=== PATIENT | female | born 2005 | race Caucasian/White ===

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

== ENCOUNTER 2023-01-10 14:30 | Outpatient (REF) | payer OTHER, SELFPAY | END 2023-01-10 14:31 | disposition home or self-care (01) | LOC: HO.MDS 14:30 | PROVIDERS: Visit Provider Internal Medicine | DX: D50.9 Iron deficiency anemia, unspecified (principal) | CPT/HCPCS: 96365; J1756 ==

== ENCOUNTER 2023-02-14 13:44 | Outpatient (REF) | payer OTHER, SELFPAY | END 2023-02-14 13:45 | disposition home or self-care (01) | LOC: HO.MDS 13:44 | PROVIDERS: Visit Provider Internal Medicine Medical Oncology | DX: D50.9 Iron deficiency anemia, unspecified (principal) | CPT/HCPCS: 96365; J1756 ==

== ENCOUNTER 2023-07-05 18:03 | Emergency (ER) | payer OTHER, SELFPAY ==
--- NOTE | 2023-07-05 18:11 | ED.GENADULT ---
HPI - General Adult General Chief complaint: Upper Respiratory Symptoms Stated complaint: SOB/Vomiting/Nauseas/Sore throat Time Seen by Provider: 07/05/23 18:56 Source: patient Mode of arrival: ambulatory Limitations: no limitations History of Present Illness HPI narrative: 18 yo female with PMH of GAS pharyngitis here with c/o sore throat x 2 days able to swallow but thinks she has strep again was supposed to see ENT but did not hx of recurrent infections responds to abx every time. No issues with voice or drooling. She also was worried she was due to late on menses - wants test complaint: sore throat Onset (ago): day(s) (2) Location: mouth Radiation: non-radiation Severity: mild Quality: aching and dull Pain Consistency: intermittent Relieving factors: none Exacerbating factors: other (swallowing) Associated symptoms: denies other symptoms Treatments prior to arrival: none Related Data Home Medications Medication Instructions Recorded Confirmed No Known Home Meds 11/23/22 11/23/22 Allergies Allergy/AdvReac Type Severity Reaction Status Date / Time tree nut Allergy Anaphylaxis Verified 07/05/23 18:12 Review of Systems Review of Systems: Constitutional : no Fever, positive Chills, no fatigue, no Malaise ENT/Mouth : positive sore throat, positive runny nose Eyes: No Discharge Cardiovascular : No Chest Pain, No SOB Respiratory : pos dry Cough, No Sputum Gastrointestinal : No Nausea, No Vomiting, No Diarrhea Genitourinary : No Dysuria, No Urinary Frequency Musculoskeletal : no Myalgia Skin : No rash Neuro : No Headache All other systems reviewed and are negative [facility] Past Medical History Medical History Chronic anemia Surgical History No pertinent past surgical history Social History Social History (Updated 11/23/22 @ 14:41 by Nancy Mckeon) Household Members: Family Housing: House Alcohol intake: current Alcohol intake frequency: holidays/special occasions only Alcohol type: wine Patient Tobacco Use Status: Never used Tobacco Second Hand Smoke Exposure: No Advance Directives: No Advance Directives Information Provided: Yes service: No Current occupational status: employed Physical Exam ED Vital Signs: Vital Signs - 24 hr 07/05/23 18:12 Temperature 99.0 F Pulse Rate 82 Respiratory Rate 16 Blood Pressure 107/72 Pulse Oximetry 98 Oxygen Delivery Method Room Air BMI result Body Mass Index 23.3 Appearance: Alert. Oriented X3. No acute distress. Eyes: Pupils equal, round and reactive to light. ENT: Pharynx bilateral mild tonsil swelling with exudates and erythema uvula midline no trismu no diff speaking or swallowing Neck: Normal inspection. Neck supple. CVS: Normal heart rate and rhythm. Pulses normal. Respiratory: No respiratory distress. Breath sounds normal. Abdomen: Soft and nontender. Skin: Skin warm and dry. Normal skin color. Normal skin turgor. Extremities: No lower extremity edema. Neuro: Oriented X 3. No motor deficit. No sensory deficit. Course Course Course Narrative: This is an RME: Additional HPI, ROS, PE not included below will be deferred to primary provider. Patient is a 18-year-old female who presents emergency department for evaluation of 3-4 days with shortness of breath, sore throat, nasal congestion, cough, nausea. Daughter ill with similar symptoms. Also concerned she may , took home test 2 weeks ago, negative, has urinary frequncy, LMP sometime in May. 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 Labs: Lab Results 07/05/23 07/05/23 Range/Units 18:26 18:29 Urine Color Yellow Urine Appearance Hazy Urine pH 6.5 (5.0-9.0) Ur Specific [place] 1.020 (1.005-1.025) Urine Protein 30 (1+) H (Neg-Trace) mg/dL Urine Glucose (UA) Negative (Negative) mg/dL Urine Ketones Trace (Negative) mg/dL Urine Blood Trace (Negative) Urine Nitrite Negative (Negative) Ur Leukocyte Esterase Negative (Negative) Urine RBC 3-5 H (0-2) /HPF Urine WBC 0-5 (0-5) /HPF Ur Squamous Epith Cells 11-20 (0-2) /HPF Urine Bacteria 2+ (None Seen) Hyaline Casts 0-2 (0-2) /LPF Urine Test NEGATIVE (NEGATIVE) COVID-19 ([place]) Negative (Negative) COVID-19 Clin Com See Note S. pyogenes GrpA JACOB Positive A (Negative) External Record Review External record reviewed: Inpatient record Prescription Management I considered prescription management with: Antibiotic (patient wanted IM PCN instead) Discharge Plan Discharge Clinical Impression: Pharyngitis Qualifiers: Pharyngitis/tonsillitis etiology: streptococcus Qualified Code(s): J02.0 - Streptococcal pharyngitis Patient Disposition: Home, Self-Care Instructions: Pharyngitis (ED) Additional Instructions: test negative. COVID and flu negative. you were treated for strep throat with a shot you should be all set. return for worsening symptoms of pain, swallowing, fevers, difficulty swallowing or breathing. please follow up with ENT. Prescriptions: No Action No Known Home Meds Referrals: Tomy Donaldson [Physician] - (ENT can call for follow up)
[2023-07-05 18:12] VITALS: BP 107/72; PULSE 82; RESP 16; TEMP 37.2; O2SAT 98; BMI 23.3
[2023-07-05 18:38] LABS: Appearance Urine Hazy; Color Urine Yellow; Glucose Urine UA Negative (Negative); Leukocyte Esterase Urine Negative (Negative); Nitrite Urine Negative (Negative); PH 6.5 (5.0-9.0); UMIC TRIGGER UACC YES; Urine Blood Trace (Negative); Urine Ketones Trace mg/dL (Negative); Urine Protein 30 (1+) mg/dL (Neg-Trace)
[2023-07-05 18:40] LABS: UPreg QC Valid YES; Urine Pregnancy NEGATIVE (NEGATIVE)
[2023-07-05 18:55] LABS: COVID-19 Test Negative (Negative); IDNOW Serial# 08D9AD1C
[2023-07-05 18:58] LABS: IDNOW Serial# 08D9AD1C; Strep A Nucleic Acid Positive (Negative)
[2023-07-05 18:59] LABS: Bacteria Urine 2+ (None Seen); Hyaline Casts Urine 0-2 /LPF (0-2); WBC Urine 0-5 /HPF (0-5)
[2023-07-05 19:13] LABS: IDNOW Serial# BCCEAD1C; Influenza A Negative (Negative); Influenza B2 Negative (Negative)
[2023-07-05] MEDS: Penicillin G Benzathine 1,200,000 UNIT/2 ML SYRINGE 1200000 UNIT IM (19:52)
== END 2023-07-05 19:56 | disposition home or self-care (01) ==
PROVIDERS: Nurse Practitioner Family; Emergency Provider Emergency Medicine; PCP Internal Medicine
DX: J02.0 Streptococcal pharyngitis (principal); Z20.822 Contact with and (suspected) exposure to COVID-19; Z32.02 Encounter for pregnancy test, result negative
CPT/HCPCS: 81001; 81025; 87502; 87635; 87651; 96372; 99282; 99284; J0561

== ENCOUNTER 2024-04-07 19:10 | Emergency (ER) | payer MEDICAID, SELFPAY ==
[2024-04-07 19:17] VITALS: BP 95/77; PULSE 82; RESP 18; TEMP 37.6; O2SAT 97; BMI 22.4
--- NOTE | 2024-04-07 19:19 | ED.GENADULT ---
HPI - General Adult General Chief complaint: General Medical Stated complaint: sore throat headache Related Data Home Medications ?Medication ?Instructions ?Recorded ?Confirmed No Known Home Meds 11/23/22 11/23/22 Allergies Allergy/AdvReac Type Severity Reaction Status Date / Time tree nut Allergy Anaphylaxis Verified 04/07/24 19:20 [facility] Past Medical History Medical History Chronic anemia Surgical History No pertinent past surgical history Social History Social History (Updated 11/23/22 @ 14:41 by Nancy Mckeon) Household Members: Family Housing: House Alcohol intake: current Alcohol intake frequency: holidays/special occasions only Alcohol type: wine Patient Tobacco Use Status: Never used Tobacco Second Hand Smoke Exposure: No Advance Directives: No Advance Directives Information Provided: No Do you have a plan to hurt others: No Plan service: No Current occupational status: employed Physical Exam ED Vital Signs: BMI result Body Mass Index 22.4 Course Course Course Narrative: This is a rapid medical exam performed by Radha Rich NP: Additional HPI, ROS, PE not included below will be deferred to primary provider. Patient is a 19-year-old female presenting with complaint of sore throat, headache, nausea, fatigue. Specifically requesting labs, hx of anemia and unknown autoimmune disorder, they never told me what it was. Plan: strep and viral swabs, basic labs Medical Decision Making Lab Data 04/07/24 19:48 04/07/24 19:48 Labs: Lab Results 04/07/24 Range/Units 19:48 WBC 5.7 (4.8-10.8) X10*3/uL RBC 4.06 L (4.20-5.50) X10*6/uL Hgb 12.6 D (12.0-16.0) g/dl Hct 36.5 L (37.0-47.0) % MCV 89.9 (80.0-98.0) fL MCH 31.0 (27.0-33.0) pg MCHC 34.5 (31.0-35.0) g/dl RDW 12.8 (11.0-16.0) % Plt Count 121 L (160-400) X10*3/uL MPV 11.4 (9.4-12.3) fL Immature Gran % (Auto) 0.4 (0.0-0.4) % Neut % (Auto) 76.2 H (45-73) % Lymph % (Auto) 14.0 L (20-40) % [place] % (Auto) 6.7 (2-11) % Eos % (Auto) 2.5 (0-4) % Baso % (Auto) 0.2 (0-2) % Lymph # (Auto) 0.8 L (1.2-4.9) X10*3/uL [place] # (Auto) 0.4 (0.1-1.2) X10*3/uL Eos # (Auto) 0.1 (0.0-0.4) X10*3/uL Baso # (Auto) 0.0 (0.0-0.2) X10*3/uL Abs Immat Gran (auto) 0.02 (0.00-0.03) X10*3/uL Absolute Neuts (auto) 4.4 (2.0-8.3) x10*3/uL Absolute Nucleated RBC 0.000 (0.0-0.012) X10*3/uL Nucleated RBC % (auto) 0.0 (0.0-0.2) /100WBC Sodium 140 (135-145) mmol/L Potassium 4.0 (3.3-5.1) mmol/L Chloride 109 H (96-108) mmol/L Carbon Dioxide 22 (22-29) mmol/L Anion Gap 13 (12-20) BUN 5 L (9-16) mg/dL Creatinine 0.76 (0.5-1.4) mg/dL Estim Creat Clear Calc 105.3 Estimated GFR > 60 Random Glucose 87 (60-115) mg/dL Calcium 9.6 D (8.4-10.2) mg/dL Total Bilirubin 0.6 (0.0-1.0) mg/dL AST 13 (5-31) U/L ALT 9 (0-31) U/L Alkaline Phosphatase 53 (39-117) U/L Total Protein 7.5 (6.5-8.0) g/dL Albumin 4.6 (3.5-5.0) g/dL Beta HCG, Quant < 2 mIU/mL Influenza Type A (PCR) NEGATIVE (Negative) Influenza Type B (PCR) NEGATIVE (Negative) RSV RNA Qual (PCR) NEGATIVE (Negative) SARS-CoV-2 RNA (RT-PCR) NEGATIVE (Negative) S. pyogenes GrpA JACOB Negative (Negative) Discharge Plan Discharge Clinical Impression: Diagnosis unknown Patient Disposition: Left W/O Completing Treatment Prescriptions: No Action No Known Home Meds Discharge Date/Time: 04/07/24 20:46
[2024-04-07 19:54] LABS: MANUAL DIFF FLAG NO
[2024-04-07 19:59] LABS: Basophils Percent Auto 0.2 % (0-2); Eosinophils Absolute Auto 0.1 X10*3/uL (0.0-0.4); Eosinophils Percent Auto 2.5 % (0-4); Hematocrit 36.5 % (37.0-47.0); Hemoglobin 12.6 g/dl (12.0-16.0); Imm Gran Abs Auto 0.02 X10*3/uL (0.00-0.03); Imm Gran Pct Auto 0.4 % (0.0-0.4); Lymphocytes Absolute Auto 0.8 X10*3/uL (1.2-4.9); Mean Corpuscular HGB Conc 34.5 g/dl (31.0-35.0); Mean Corpuscular Volume 89.9 fL (80.0-98.0); Mean Platelet Volume 11.4 fL (9.4-12.3); Monocytes Absolute Auto 0.4 X10*3/uL (0.1-1.2); Monocytes Percent Auto 6.7 % (2-11); Neutrophils Absolute Auto 4.4 x10*3/uL (2.0-8.3); Neutrophils Percent Auto 76.2 % (45-73); Platelet Count 121 X10*3/uL (160-400); Red Blood Count 4.06 X10*6/uL (4.20-5.50); Red Cell Distribution Width 12.8 % (11.0-16.0); White Blood Count 5.7 X10*3/uL (4.8-10.8)
[2024-04-07 20:22] LABS: Alanine Aminotransferase 9 U/L (0-31); Albumin Level 4.6 g/dL (3.5-5.0); Alkaline Phosphatase 53 U/L (39-117); Anion Gap 13 (12-20); Aspartate Amino Transferase 13 U/L (5-31); Bilirubin Total 0.6 mg/dL (0.0-1.0); Blood Urea Nitrogen 5 mg/dL (9-16); Calcium 9.6 mg/dL (8.4-10.2); Carbon Dioxide 22 mmol/L (22-29); Chloride 109 mmol/L (96-108); Creatinine Clr Calc Pharmacy 105.3; Estimated Glomerular Filt Rate > 60; Glucose Random 87 mg/dL (60-115); HCG Quantitative < 2 mIU/mL; Sodium 140 mmol/L (135-145); Total Protein 7.5 g/dL (6.5-8.0)
[2024-04-07 20:44] LABS: Influenza A PCR NEGATIVE (Negative); Influenza B PCR NEGATIVE (Negative); Resp Syncy Virus RNA Qual PCR NEGATIVE (Negative); SARS COV2 PCR INHOUSE NEGATIVE (Negative)
[2024-04-07 21:38] LABS: IDNOW Serial# 08D9AD1C; Strep A Nucleic Acid Negative (Negative)
== END 2024-04-07 20:46 | disposition left against medical advice (07) ==
PROVIDERS: Registered Nurse Emergency; Emergency Provider Emergency Medicine
DX: J02.9 Acute pharyngitis, unspecified (principal); R51.9 Headache, unspecified; R11.0 Nausea; R53.83 Other fatigue; Z03.818 Encounter for observation for suspected exposure to other biological agents ruled out
CPT/HCPCS: 0241U; 80053; 84702; 85025; 87651; 99281; 99283

== ENCOUNTER 2024-09-19 14:16 | Emergency (ER) | payer MEDICAID, SELFPAY ==
--- NOTE | ~2024-09-19 | US_ITS ---
EXAMINATION: US FIRST TRIMESTER CLINICAL INFORMATION: Positive hCG LMP: Unknown Beta-hC COMPARISON: None available. TECHNIQUE: Transabdominal imaging was performed. FINDINGS: UTERUS AND INTRAUTERINE GESTATIONAL SAC: No definite evidence of intrauterine gestational sac yet. SUBCHORIONIC HEMORRHAGE: None OVARIES: Right: Normal Left: Normal FREE FLUID: None OTHER FINDINGS: None US/US OB pelvic and transvaginal IMPRESSION: No intrauterine is identified at this time. Correlation with beta hCG levels is recommended, probably too early in the , as nonvisualization of a gestational sac could be due to an early stage of . Alternatively, lack of an intrauterine gestational sac may also be seen with missed or ectopic , although no adnexal mass is seen to strongly suggest ectopic . Short-term sonographic follow-up and serial beta hCG levels are recommended to assess for development of an intrauterine gestational sac. Electronically signed by: Eliza Chandler MD 09/19/2024 08:02 PM [facility]
[2024-09-19 14:30] VITALS: BP 101/53; BP 110/70; PULSE 70; PULSE 94; RESP 18; TEMP 36.6; O2SAT 98; O2SAT 99; BMI 22.1
--- NOTE | 2024-09-19 15:41 | PC.NURSE ---
pt tearful and screaming from help- pt stating that her pain is worsening and feels as if she is unable to swallow- no notable secretions outside of mouth- pt speaking in full sentences, provider was notified.
--- NOTE | 2024-09-19 15:43 | PC.NURSE ---
pt offered both hot and cold packs which she declined, pt also offered warm blanket which was declined
[2024-09-19] MEDS: Ketorolac Tromethamine 30 MG/ML VIAL IM (15:53)
--- NOTE | 2024-09-19 15:55 | PC.NURSE ---
pt medicated for 10/10 pain, tech aware to draw labs
--- NOTE | 2024-09-19 16:10 | PC.NURSE ---
labs obtained/swabs obtained
[2024-09-19 16:13] LABS: MANUAL DIFF FLAG NO
[2024-09-19 16:20] LABS: IDNOW Serial# 08D9AD1C; Strep A Nucleic Acid Positive (Negative)
[2024-09-19 16:24] LABS: Basophils Percent Auto 0.4 % (0-2); Eosinophils Absolute Auto 0.1 X10*3/uL (0.0-0.4); Eosinophils Percent Auto 1.8 % (0-4); Hematocrit 35.1 % (37.0-47.0); Hemoglobin 12.4 g/dl (12.0-16.0); Imm Gran Abs Auto 0.01 X10*3/uL (0.00-0.03); Imm Gran Pct Auto 0.2 % (0.0-0.4); Lymphocytes Absolute Auto 1.3 X10*3/uL (1.2-4.9); Lymphocytes Percent Auto 27.3 % (20-40); Mean Corpuscular HGB Conc 35.3 g/dl (31.0-35.0); Mean Corpuscular Hemoglobin 31.9 pg (27.0-33.0); Mean Corpuscular Volume 90.2 fL (80.0-98.0); Mean Platelet Volume 10.7 fL (9.4-12.3); Monocytes Absolute Auto 0.3 X10*3/uL (0.1-1.2); Monocytes Percent Auto 6.5 % (2-11); Neutrophils Absolute Auto 3.1 x10*3/uL (2.0-8.3); Neutrophils Percent Auto 63.8 % (45-73); Platelet Count 119 X10*3/uL (160-400); Red Blood Count 3.89 X10*6/uL (4.20-5.50); Red Cell Distribution Width 11.6 % (11.0-16.0); White Blood Count 4.9 X10*3/uL (4.8-10.8)
[2024-09-19 16:30] LABS: Lipase 13 U/L (8-78); Monotest Negative (Negative)
[2024-09-19] MEDS: Penicillin V Potassium 250 MG TABLET 500 MG PO (16:32)
[2024-09-19] MEDS: diazePAM 5 MG TABLET PO (16:32)
--- NOTE | 2024-09-19 16:36 | PC.NURSE ---
pt medicated for neck spasms and po abx for strept throat
[2024-09-19 16:53] LABS: Influenza A PCR NEGATIVE (Negative); Influenza B PCR NEGATIVE (Negative); Resp Syncy Virus RNA Qual PCR NEGATIVE (Negative); SARS COV2 PCR INHOUSE NEGATIVE (Negative)
[2024-09-19 16:57] LABS: HCG Quantitative 376 mIU/mL
[2024-09-19 17:58] LABS: Alanine Aminotransferase 8 U/L (0-31); Albumin Level 4.4 g/dL (3.5-5.0); Alkaline Phosphatase 43 U/L (39-117); Anion Gap 12 (12-20); Aspartate Amino Transferase 16 U/L (5-31); Bilirubin Total 0.6 mg/dL (0.0-1.0); Blood Urea Nitrogen 8 mg/dL (9-16); Calcium 9.2 mg/dL (8.4-10.2); Carbon Dioxide 22 mmol/L (22-29); Chloride 109 mmol/L (96-108); Creatinine Clr Calc Pharmacy 105.3; Estimated Glomerular Filt Rate > 60; Glucose Random 92 mg/dL (60-115); Sodium 139 mmol/L (135-145); Total Protein 7.2 g/dL (6.5-8.0)
--- NOTE | 2024-09-19 18:01 | ED_ITS ---
HPI - General Adult General Chief complaint: Dental/Oral Stated complaint: NECK PAIN RADIATING TO GUMS,NO INJ PER EMS Time Seen by Provider: 09/19/24 15:58 Source: patient and EMS Mode of arrival: EMS Limitations: no limitations History of Present Illness ED Provider: ABBY BUTLER PA-C HPI narrative: 19-year-old female with pmhx significant for anemia presents to the ED today via EMS from home for evaluation of right-sided neck pain upon waking this morning. Denies blunt injury or trauma to the neck. Denies falls. She states she may have slept wrong however is unsure. She states the pain has been increasing throughout the day. She reports difficulty turning her head to the right. She states her neck feels stiff. Denies any fever, chills, sore throat, dental pain, odynophagia, dysphagia, nausea, vomiting, abdominal pain. No known sick contacts. Denies chance of . Related Data Previous Rx's ?Medication ?Instructions ?Recorded penicillin V potassium 500 mg 500 mg PO BID 10 days #20 tabs 09/19/24 tablet vits no.126-ferrous fum 1 tab PO DAILY #60 tabs 09/19/24 28 mg iron-folic acid 800 mcg tablet (Classic ) Allergies Allergy/AdvReac Type Severity Reaction Status Date / Time tree nut Allergy Anaphylaxis Verified 09/19/24 14:31 Review of Systems 2 Review of Systems: Constitutional: No fever, chills, fatigue, night sweats, weight changes ENT/Mouth: No ear pain, hearing loss, nasal congestion, sinus pain, rhinorrhea, sore throat Eyes: No eye pain, swelling, redness, vision changes, discharge Cardio: No chest pain, palpitations, OROZCO, orthopnea, peripheral edema Pulm: No SOB, cough, sputum, wheezing, dyspnea, hemoptysis GI: No nausea, vomiting, hematemesis, abdominal pain, diarrhea, constipation, hematochezia, melena : No irregular bleeding, dysuria, frequency, urgency, hesitancy, hematuria, flank pain, urinary flow changes, urinary incontinence or retention MSK: No back pain, joint pain, myalgias, +neck pain Skin: No lesions, rashes Neuro: No weakness, numbness, paresthesias, LOC, dizziness, headache Psych: No anxiety/panic, depression, SI/HI, AH/VH All other systems reviewed and are negative. [facility] Past Medical History Attestation statement: The following information was validated with the patient. Source: old records reviewed and nursing notes reviewed Medical History Pancytopenia Chronic anemia Anemia Surgical History No pertinent past surgical history Social History Social History Household Members: Family Housing: House Alcohol intake: current Alcohol intake frequency: holidays/special occasions only Alcohol type: wine Patient Tobacco Use Status: Never used Tobacco Second Hand Smoke Exposure: No Advance Directives: No Advance Directives Information Provided: No Do you have a plan to hurt others: No Plan service: No Current occupational status: employed Physical Exam ED Vital Signs: Vital Signs - 24 hr 09/19/24 14:30 09/19/24 20:40 Temperature 97.9 F 98.3 F Pulse Rate 70 65 Respiratory Rate 18 16 Blood Pressure 101/53 L 106/57 L Pulse Oximetry 98 98 Oxygen Delivery Method Room Air Room Air BMI result Body Mass Index 22.1 vital signs stable General: Well appearing, in no acute distress. Skin: Warm, dry, intact. No rashes or lesions. Head: Normocephalic, atraumatic. EENT: Hearing is intact b/l. Conjunctiva clear. PERRLA. Moist mucous membranes.?dentition intact. no swelling or periapical abscesses. Posterior oropharynx mildly erythematous without edema. No tonsillar exudates or peritonsillar masses. Uvula is midline. She is controlling secretions and speaking in complete sentences. There is no cervical LAD. Neck: +noted right-sided torticollis. She is tender to palpation along right cervical paraspinal muscles, extending into right trapezius with palpable spasm. Limited range of motion to right. No nuchal rigidity or meningeal signs. Cardiac: Chest wall symmetric. RRR. Lungs: Normal respiratory effort without accessory muscle use. CTA bilaterally? Abdomen: Soft, non-tender, non-distended Neuro: AOx3. Normal speech. Ambulating with steady gait. Psych: Appropriate mood and affect. Responds appropriately to questions. Course Course Course Narrative: 1705 -- CBC without leukocytosis or left shift. H&H stable. Chemistry without acute electrolyte abnormality requiring intervention. No ALLEN. Liver function WNL. She tested positive for strep pharyngitis. She tested negative for COVID, flu, RSV, mono. Initially patient denied any chance of . She was treated with Toradol, penicillin and Valium for her symptoms. Her beta HCG then came back as 376. On further questioning, patient states her last menstrual period was at the beginning of August (approximately a month and a half ago). She is sexually active and is not on control. I did inform her of positive results. She states this is not a planned . She is A1. She has a healthy two year old child. Reports history of miscarriage a few years ago. No history of eptopic. She does not endorse any abdominal pain, nausea, vomiting, vaginal bleeding. She was agreeable to ultrasound for confirmation. Order placed. > I discussed case with my attending physician Dr. Romero. risk of patient receiving toradol and valium this early in / harm to fetus is very low. I did discuss risks with patient and she verbalizes understanding. > on re-evaluation, she reports improvement in neck pain/ ROM after receiving the above medications Reevaluation(s) Reevaluation #1: Patient was given to me via sign-out pending ultrasound report. Ultrasound revealing no intrauterine identified, correlation with beta hCG levels. Her beta quant is 376. I personally re-evaluated patient, she does have mild suprapubic pain, no pain with palpation however does have rebound tenderness in the suprapubic region, when removing my hand, no guarding. She is well-appearing. She was hemodynamically stable. I discussed with patient, she states that she has had increased vaginal discharge over the last 4-5 weeks. Reports that this discharge is clear, denies any vaginal bleeding. Denies any severe abdominal pain. I consulted with Dr. Rich. Dr. Rich reviewed case, and patient's hCG is very low to see an intrauterine , there is no adnexal mass no free fluid on ultrasound. Differential diagnoses include early IUP, SAB, ectopic. Recommending vitamins 1 tablet daily, with repeat hCG in 48 hours until hCG reaches 2507-1609 then repeat ultrasound. Recommending outpatient follow-up in 2 days if no access to care, can follow-up in the ER. Also recommending to advised patient on SAB, ectopic warnings to come back with pain or bleeding. Expressed the urgency to see OBGYN within 48 hours for repeat hCG and possible ultrasound. If she does not have access to this care, she needs to come back to the ER for re-evaluation until IUP is confirmed and ectopic is ruled out. Medications Administered Discontinued Medications Generic Name Dose Route Start Last Admin Trade Name Dewayne PRN Reason Stop Dose Admin Diazepam 5 mg 09/19/24 16:21 09/19/24 16:32 Diazepam 5 Mg Tablet PO 09/19/24 16:22 5 mg ONCE ONE Administration Ketorolac Tromethamine 30 mg 09/19/24 15:42 09/19/24 15:53 Ketorolac Tromethamine 30 Mg/Ml Vial IM 09/19/24 15:43 30 mg ONCE ONE Administration Penicillin V Potassium 500 mg 09/19/24 16:21 09/19/24 16:32 Penicillin V Potassium 250 Mg Tablet PO 09/19/24 16:22 500 mg ONCE ONE Administration Medical Decision Making Medical Decision Making [facility] Narrative: 19-year-old female with pmhx significant for anemia presents to the ED today via EMS from home for evaluation of right-sided neck pain upon waking this morning. On exam, dentition is intact. there is no swelling or periapical abscesses. Posterior oropharynx mildly erythematous without edema. No tonsillar exudates or peritonsillar masses. Uvula is midline. She is controlling secretions and speaking in complete sentences. There is no cervical LAD. noted right-sided torticollis. She is tender to palpation along right cervical paraspinal muscles, extending into right trapezius with palpable spasm. Limited range of motion to right. No nuchal rigidity or meningeal signs. Differential diagnosis includes strep throat, mono, torticolis, cervical muscle spasm. Unlikely fracture/ subluxation. Unlikely deep soft tissue neck infection, dental abscess/ infection, [employer]ENDING MACHINE [employer]END[employer], retropharyngeal abscess, epiglottitis, meningitis. Plan for labs, viral and strep swabs, mono, hcg, pain control, and re- evaluation. Differential Diagnosis Differential Diagnoses: The differential diagnosis associated with the presentation includes as above. Admission/Observation not indicated Lab Data [facility] Lab Attestation statement: I reviewed the patient's lab results. as above. 09/19/24 16:07 09/19/24 17:08 Labs: Lab Results 09/19/24 09/19/24 Range/Units 16:07 17:08 WBC 4.9 (4.8-10.8) X10*3/uL RBC 3.89 L (4.20-5.50) X10*6/uL Hgb 12.4 (12.0-16.0) g/dl Hct 35.1 L (37.0-47.0) % MCV 90.2 (80.0-98.0) fL MCH 31.9 (27.0-33.0) pg MCHC 35.3 H (31.0-35.0) g/dl RDW 11.6 (11.0-16.0) % Plt Count 119 L (160-400) X10*3/uL MPV 10.7 (9.4-12.3) fL Immature Gran % (Auto) 0.2 (0.0-0.4) % Neut % (Auto) 63.8 (45-73) % Lymph % (Auto) 27.3 (20-40) % [place] % (Auto) 6.5 (2-11) % Eos % (Auto) 1.8 (0-4) % Baso % (Auto) 0.4 (0-2) % Lymph # (Auto) 1.3 (1.2-4.9) X10*3/uL [place] # (Auto) 0.3 (0.1-1.2) X10*3/uL Eos # (Auto) 0.1 (0.0-0.4) X10*3/uL Baso # (Auto) 0.0 (0.0-0.2) X10*3/uL Abs Immat Gran (auto) 0.01 (0.00-0.03) X10*3/uL Absolute Neuts (auto) 3.1 (2.0-8.3) x10*3/uL Absolute Nucleated RBC 0.000 (0.0-0.012) X10*3/uL Nucleated RBC % (auto) 0.0 (0.0-0.2) /100WBC Sodium 139 (135-145) mmol/L Potassium 4.0 (3.3-5.1) mmol/L Chloride 109 H (96-108) mmol/L Carbon Dioxide 22 (22-29) mmol/L Anion Gap 12 (12-20) BUN 8 L (9-16) mg/dL Creatinine 0.76 (0.5-1.4) mg/dL Estim Creat Clear Calc 105.3 Estimated GFR > 60 Random Glucose 92 (60-115) mg/dL Calcium 9.2 (8.4-10.2) mg/dL Total Bilirubin 0.6 (0.0-1.0) mg/dL AST 16 (5-31) U/L ALT 8 (0-31) U/L Alkaline Phosphatase 43 (39-117) U/L Total Protein 7.2 (6.5-8.0) g/dL Albumin 4.4 (3.5-5.0) g/dL Lipase 13 (8-78) U/L Beta HCG, Quant 376 mIU/mL Monoscreen Negative (Negative) Influenza Type A (PCR) NEGATIVE (Negative) Influenza Type B (PCR) NEGATIVE (Negative) RSV RNA Qual (PCR) NEGATIVE (Negative) SARS-CoV-2 RNA (RT-PCR) NEGATIVE (Negative) S. pyogenes GrpA JACOB Positive A (Negative) Independent Interpretation I performed an independent interpretation of an: Ultrasound Interpretation: OB ultrasound shows US/US OB pelvic and transvaginal IMPRESSION: No intrauterine is identified at this time. Correlation with beta hCG levels is recommended, probably too early in the , as nonvisualization of a gestational sac could be due to an early stage of . Alternatively, lack of an intrauterine gestational sac may also be seen with missed or ectopic , although no adnexal mass is seen to strongly suggest ectopic . Short-term sonographic follow-up and serial beta hCG levels are recommended to assess for development of an intrauterine gestational sac. Electronically signed by: Eliza Chandler MD 09/19/2024 08:02 PM [facility] Radiology Impression Discussion of test interpretation with radiology: I have reviewed the radiologist's reading. Independent Historian Clinical information obtained from an independent historian. History obtained from or confirmed by: EMS External Record Review External record reviewed: Inpatient record Prescription Management I considered prescription management with: Pain Medication and Antibiotic Social Determinants Patient?s care significantly limited by Social Determinants of Health including: Other Social Determinant of Health Critical Care Time Critical Care Time Critical Care Time: No Discharge Plan Discharge Clinical Impression: Acute streptococcal pharyngitis, , Right torticollis Patient Disposition: Still a Patient Instructions: (ED), Strep Throat (ED) Additional Instructions: You were seen in the ED today for evaluation of neck pain. Your physical exam was consistent with a neck muscle spasm. Your blood work today is reassuring. You tested positive for strep throat. You tested negative for covid, flu, rsv, and mono. As discussed, you also tested positive for . Your hormone (beta hcg) level is 376. Your ultrasound shows no intrauterine however you were very early in your and this is very common to not see an intrauterine at this time. However, an ectopic and or miscarriage can not be ruled out at this time. Therefore it is VERY important you follow the instructions below: It is very important that you follow-up with an OBGYN. You need to have your hCG level rechecked in 48 hours (Saturday), until your HCG level is [id number] and then repeat ultrasound. If you do not have OBGYN access to care, you can return back to the emergency room for re-evaluation. We tested you for gonorrhea and chlamydia, we will call you if these are positive. Penicillin is an antibiotic that has been sent to your pharmacy to treat strep throat. Take this twice daily for the next 10 days to treat strep throat. Do not stop taking these antibiotics early or miss any doses as this may cause infection to return or worsen. Take Tylenol as needed for body aches or fevers. Avoid motrin/other NSAIDs as these are not safe in . Make sure to change your toothbrush as this contains bacteria. Strep throat is contagious. If anyone else in your household is exhibiting symptoms, please advise them to come to the ED, urgent care, or to see their primary care provider. Follow up with your primary care provider this week. I have also sent a vitamin that you should take daily during your . A referral for an OB specialist has been provided to you. Call them to make an appointment, they will not call you. Return to the Emergency Department if you experience worsening or uncontrolled pain, tongue swelling, difficulty swallowing, change in your voice, difficulty breathing, fevers 100.4?F or greater, recurrent vomiting, development of a rash, or any other concerning symptoms. In the case of emergency, call 911.? Prescriptions: New penicillin V potassium 500 mg tablet 500 mg PO BID 10 Days Qty: 20 0RF Classic 28 mg iron- 800 mcg tablet 1 tab PO DAILY Qty: 60 0RF Print Language: Canadian
[2024-09-19 20:40] VITALS: BP 106/57; PULSE 65; RESP 16; TEMP 36.8; O2SAT 98
--- NOTE | 2024-09-19 20:51 | P.CONOB_ITS ---
CREDIT ASSISTANT - CN: HPI Data of Consult Consult date: 09/19/24 Primary Care Provider: [facility] Consult Narrative Narrative: I was consulted on Rosalba Bass who is a 19 year old female presenting to the emergency room via EMS from home for evaluation of right-sided neck pain upon waking this morning. Denies blunt injury or trauma to the neck. Denies falls. She states she may have slept wrong however is unsure. She states the pain has been increasing throughout the day. She reports difficulty turning her head to the right. She states her neck feels stiff. Denies any fever, chills, sore throat, dental pain, odynophagia, dysphagia, nausea, vomiting, abdominal pain. No vaginal bleeding no pelvic pain no vaginal discharge. In the emergency room to workup included group B strep swab from the throat which came back positive HCG was 376 Blood type A positive H&H 12.4/35.1 Pelvic ultrasound showed the following: IMPRESSION: No intrauterine is identified at this time. Correlation with beta hCG levels is recommended, probably too early in the , as nonvisualization of a gestational sac could be due to an early stage of . Alternatively, lack of an intrauterine gestational sac may also be seen with missed or ectopic , although no adnexal mass is seen to strongly suggest ectopic . Short-term sonographic follow-up and serial beta hCG levels are recommended to assess for development of an intrauterine gestational sac. cc:: CC: OB [facility] Past Medical History Medical History Pancytopenia Chronic anemia Anemia Surgical History Surgical History No pertinent past surgical history Social History Social History Household Members: Family Housing: House Alcohol intake: current Alcohol intake frequency: holidays/special occasions only Alcohol type: wine Patient Tobacco Use Status: Never used Tobacco Second Hand Smoke Exposure: No Advance Directives: No Advance Directives Information Provided: No Do you have a plan to hurt others: No Plan service: No Current occupational status: employed Meds Allergies Allergy/AdvReac Type Severity Reaction Status Date / Time tree nut Allergy Anaphylaxis Verified 09/19/24 14:31 CREDIT ASSISTANT Physical Exam Vitals Vital signs: Temp Pulse Resp BP Pulse Ox O2 Del Method 98.3 F 65 16 106/57 L 98 Room Air 09/19/24 20:40 09/19/24 20:40 09/19/24 20:40 09/19/24 20:40 09/19/24 20:40 09/19/24 20:40 BMI result Body Mass Index 22.1 Additional Comments: Reported by Rolanda Morales as benign nontender and no guarding CREDIT ASSISTANT - Results Labs 09/19/24 16:07 09/19/24 17:08 Labs: Short CBC 09/19/24 Range/Units 16:07 WBC 4.9 (4.8-10.8) X10*3/uL Hgb 12.4 (12.0-16.0) g/dl Hct 35.1 L (37.0-47.0) % Plt Count 119 L (160-400) X10*3/uL BMP 09/19/24 17:08 Sodium 139 Potassium 4.0 Chloride 109 H Carbon Dioxide 22 BUN 8 L Creatinine 0.76 Calcium 9.2 Liver Function 09/19/24 Range/Units 17:08 Total Bilirubin 0.6 (0.0-1.0) mg/dL AST 16 (5-31) U/L ALT 8 (0-31) U/L Alkaline Phosphatase 43 (39-117) U/L Albumin 4.4 (3.5-5.0) g/dL Imaging US - abdomen: Radiologist's impression: ITS Impressions Pelvic/Transvag US 09/19/24 17:46 IMPRESSION: No intrauterine is identified at this time. Correlation with beta hCG levels is recommended, probably too early in the , as nonvisualization of a gestational sac could be due to an early stage of . Alternatively, lack of an intrauterine gestational sac may also be seen with missed or ectopic , although no adnexal mass is seen to strongly suggest ectopic . Short-term sonographic follow-up and serial beta hCG levels are recommended to assess for development of an intrauterine gestational sac. Electronically signed by: Eliza Chandler MD 09/19/2024 08:02 PM [facility] [place] and Plan (1) Acute streptococcal pharyngitis: Status: Acute Will defer the treatment for strep pharyngitis to the emergency room team, recommended no NSAID use in early (2) Right torticollis: Status: Acute Defer the management of the neck pain to the ED team (3) Early stage of : Status: Acute Recommended the following: Differential diagnosis includes early intrauterine , spontaneous , ectopic . vitamin 1 tablet p.o. q.d. Repeat HCG quantitative with repeat ultrasound q.48h till IUP is confirmed and ectopic is ruled out. Instructions to be given to patient to come back to the emergency room in case of pelvic pain, vaginal bleeding, nausea or vomiting, fever above 100.4 Tylenol 650 mg p.o. q.6 p.r.n. fever, fever is teratogenic in early . Instructions to be given to patient to follow-up in 48 hours with her OBGYN in outpatient office, if she has difficulty to have access to care with her OBGYN office within 48 hours, she is to come back to the emergency room no later than 48 hours for repeat hCG , ultrasound and re evaluation till ectopic is ruled out and to explain to the patient the importance of timely follow-up up in order to prevent possible complications for ectopic including but limited to rupture needs abdominal bleeding. I spent a total of 20 minutes reviewing the chart, communicating with the emergency room provider and documenting in the medical record.
[2024-09-19 21:38] VITALS: BP 106/57; PULSE 65; RESP 16; TEMP 36.8; O2SAT 98
[2024-09-20 04:20] LABS: CT PCR NOT DETECTED (Not Detect.); NG PCR NOT DETECTED (Not Detect.)
== END 2024-09-19 21:39 | disposition home or self-care (01) ==
PROVIDERS: Physician Assistant Medical; Emergency Provider Emergency Medicine
DX: J02.0 Streptococcal pharyngitis (principal); M43.6 Torticollis; M54.2 Cervicalgia; Z33.1 Pregnant state, incidental
CPT/HCPCS: 0241U; 36415; 76801; 76817; 80053; 83690; 84702; 85025; 86308; 87491; 87591; 87651; 96372; 99284; J1885

== ENCOUNTER → 2024-09-19 14:47 | Outpatient (BNV) | payer MEDICAID, SELFPAY | PROVIDERS: Emergency Provider Emergency Medicine; Visit Provider Obstetrics & Gynecology | DX: J02.0 Streptococcal pharyngitis (principal); M43.6 Torticollis; Z34.90 Encounter for supervision of normal pregnancy, unspecified, unspecified trimester | CPT/HCPCS: 99283 ==

== ENCOUNTER 2024-09-20 14:55 | Emergency (ER) | payer MEDICAID, SELFPAY ==
--- NOTE | ~2024-09-20 | US_ITS ---
EXAMINATION: US OBSTETRICAL ULTRASOUND CLINICAL INFORMATION: Positive test. Now with increased bleeding and pain. COMPARISON: Pelvic ultrasound of 09/19/2024. LMP: 08/07/2024. Gestational age by maternal dates is 6 weeks 2 days. Estimated date of delivery by maternal dates is 05/14/2025. TECHNIQUE: Real-time scanning of the pelvis is acquired via transabdominal and transvaginal approach. FINDINGS: Uterus is retroverted in orientation, measuring 7.1 x 4.4 x 5.2 cm in length, AP and transverse dimensions, respectively. Endometrial stripe thickness is 1.1 cm. There is no evidence of intrauterine gestational sac at this time. Myometrial echotexture is homogeneous. No focal myometrial mass. The cervix appears closed. Left ovary measures 3.2 x 1.3 x 1.6 cm with a volume of 4.8 mL. The ovary is normal in appearance containing multiple small follicles. The right ovary measures 2.4 x 2.4 x 2.4 cm with a volume of 7.2 mL. The ovary is normal in appearance containing small follicles. No adnexal mass. Small simple appearing free fluid in the pelvis, probably physiologic. US/US OB pelvic and transvaginal IMPRESSION: No evidence of intrauterine . No sonographic evidence of ectopic . Given the history of vaginal bleeding findings could reflect missed . Recommend clinical correlation and close clinical follow-up. Recommend correlation with serial beta-hCG and if clinically deemed necessary with follow-up ultrasound in 7-10 days. Electronically signed by: Dangelo Lincoln MD 09/20/2024 09:13 PM [facility]GENY EDGE
--- NOTE | 2024-09-20 15:16 | ED.GENADULT ---
HPI - General Adult General Chief complaint: Vaginal Bleeding Stated complaint: + bleeding Time Seen by Provider: 09/20/24 17:29 Source: patient Mode of arrival: ambulatory Limitations: no limitations History of Present Illness ED Provider: Jina García APRN HPI narrative: 19 yo female here with multiple complaints. Patient reports she was seen here yesterday and told she was . She had some suprapubic pain and had an US that showed no IUP. Her quant was 376 and her LMP was early August. OB was consulted and patient was thought to have either early , but could not r/o ectopic or SAB. She was recommended to have a repeat US/quant in 48 hrs. Patient reports last evening at 11pm she started having cramping and bright red vaginal bleeding which continued for several hours. She is now having scant vaginal bleeding and no longer needs to use a pad. She is unsure how many pads she used last evening. She does have some mild suprapubic discomfort. She denies back pain, vomiting or fever. She also reports continued sore throat, right sided neck pain. She was diagnosed with strep pharyngitis, torticollis yesterday. She did not fern picker her PCN or start treatment. No diff swallowing, diff breathing, headache, fevers or chills. Related Data Previous Rx's ?Medication ?Instructions ?Recorded penicillin V potassium 500 mg 500 mg PO BID 10 days #20 tabs 09/19/24 tablet vits no.126-ferrous fum 1 tab PO DAILY #60 tabs 09/19/24 28 mg iron-folic acid 800 mcg tablet (Classic ) Allergies Allergy/AdvReac Type Severity Reaction Status Date / Time tree nut Allergy Anaphylaxis Verified 09/20/24 15:20 Review of Systems Review of Systems: Yes all other systems are reviewed and are negative Constitutional: Constitutional: Reports no additional constitutional complaints, Denies body ache(s), Denies chills, Denies fever(s), Denies headache(s) and Denies weakness Eyes: Eyes: Reports no additional eye complaints and Denies change in vision ENT: Reports system reviewed and no additional complaints, except as documented, Denies dizziness, Denies headache(s), Denies nasal congestion, Denies nasal discharge, Reports neck pain and Reports sore throat Cardiovascular: Cardiovascular: Reports no additional cardiovascular complaints, Denies chest pain, Denies leg edema and Denies dyspnea Respiratory: Respiratory: Reports no additional respiratory complaints, Denies cough and Denies dyspnea Gastrointestinal: Gastrointestinal: Reports no additional gastrointestinal complaints, Reports abdominal pain, Denies diarrhea, Denies nausea and Denies vomiting Genitourinary: Genitourinary: Reports no additional female genitourinary complaints, Reports abnormal vaginal bleeding, Denies dysuria, Reports pelvic pain, Denies flank pain, Denies urinary incontinence, Denies urinary hesitancy, Denies urinary urgency, Denies vaginal discharge, Denies vaginal dryness, Denies vaginal odor and Denies vaginal pruritus Musculoskeletal: Musculoskeletal: Reports no additional musculoskeletal complaints, Denies back pain, Denies arthralgias, Denies joint swelling, Reports neck pain, Denies numbness and Denies tingling Integumentary/Breasts: Skin/Breast: Reports system reviewed and no additional complaints, except as docu and Denies rash Neurologic: Reports system reviewed and no additional complaints, except as documented, Denies Abnormal speech present, Denies dizziness, Denies headache(s), Denies numbness, Denies tingling and Denies weakness [facility] Past Medical History Attestation statement: The following information was validated with the patient. Source: old records reviewed and nursing notes reviewed Medical History Pancytopenia Chronic anemia Anemia Surgical History No pertinent past surgical history Social History Social History Household Members: Family Housing: House Alcohol intake: current Alcohol intake frequency: holidays/special occasions only Alcohol type: wine Patient Tobacco Use Status: Never used Tobacco Second Hand Smoke Exposure: No Advance Directives: No Advance Directives Information Provided: No Do you have a plan to hurt others: No Plan service: No Current occupational status: employed Physical Exam ED Vital Signs: Vital Signs - 24 hr 09/20/24 15:19 Temperature 98.3 F Pulse Rate 77 Respiratory Rate 18 Blood Pressure 118/53 L Pulse Oximetry 100 Oxygen Delivery Method Room Air BMI result Body Mass Index 22.1 Const General: cooperative, healthy appearing, comfortable and no acute distress Orientation/consciousness: patient oriented x3 Limitations: no limitations HENMT Head: Yes normal to inspection Ears: hearing grossly normal bilaterally and TM's normal bilaterally General nose exam: Normal external nose present Face and sinus: Yes normal facial exam Mouth: Normal oral and palatal mucosa present Throat: Yes posterior oropharynx normal, Yes uvula midline and Yes abnormal tonsil (bilateral tonsillar erythema/exudate) Eyes General: appearance normal, both eyes and all related structures Pupils: Equal, round and reactive pupils present Neck Other: TTP to right paraspinal area with no swelling noted Pain with rotation of head right/left. 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 External Female Exam: normal external appearance Speculum Exam - Vagina: vaginal bleeding (moderate in the canal BR-suctioned with mild bleeding noted from the cervix) OB/external & speculum: vaginal bleeding (moderate in the canal BR-suctioned with mild bleeding noted from the cervix) Back/Spine/Pelvis Thoracic/Lumbar Spine: thoracic and lumbar spine normal to inspection Skin General skin exam: no rashes or lesions noted Neuro General: patient oriented x3, no meningeal signs, no focal motor deficits and normal sensation to monofilament Cranial nerves: Yes Equal, round and reactive pupils present Cognition (Neuro): normal cognition Speech: No Abnormal speech present Gait exam (Neuro): Normal gait present Motor exam (neuro): 5/5 motor strength present throughout Extrem General: Yes normal to inspection Course Course Course Narrative: This is an RME performed by Roseann Jose CNP: Additional HPI, ROS, PE not included below will be deferred to primary provider. Patient is a 19-year-old female who presents emergency department for evaluation of vaginal bleeding. She was seen in the emergency department yesterday with neck pain and found to be strep positive. A CT was going to be obtained therefore hCG was drawn which was notably positive at 376. she was not aware at the time that she was . An ultrasound was obtained which revealed no intrauterine to be identified, yesterday she had endorsed increased vaginal discharge over the past 4-5 weeks but that this was clear and denied any vaginal bleeding or abdominal pain. OBGYN was consulted no adnexal mass on ultrasound or free fluid on ultrasound, was advised 48 hour follow-up for repeat hCG and possible ultrasound. She reports that as soon as she left the department yesterday she began having vaginal bleeding and states it is a lot but does not quantify how many sanitary napkins she is requiring Additionally, she states she would also like to be re-evaluated for the neck pain that she has been experiencing which he was originally seen for yesterday. She is able to laterally rotate her head to the left well as the right (though mildly decreased ) and has pain with posterior flexion. Plan: Serum labs including repeat hCG Reevaluation(s) Reevaluation #1: Beta quant is 260. Yesterday patient was 376. On her pelvic exam she has a moderate amount of bleeding in the vaginal canal which I suctioned out with slight vaginal bleeding noted from the cervical os. I presume that she is in the process of miscarrying. In 3.5 hrs she has changed her pad twice. Her hemoglobin and hematocrit are stable. Her vitals are stable. I will discuss her case with Dr. Rich (MICROBIOLOGY COORDINATOR) Reevaluation #2: 1900-Sign out to Monica JESUS pending US Reevaluation #3: I Janice Faye PA-C have accepted care of the patient and signed out pending ultrasound and final disposition I have independently reviewed the following tests: Pelvic ultrasound: US/US OB pelvic and transvaginal IMPRESSION: No evidence of intrauterine . No sonographic evidence of ectopic . Given the history of vaginal bleeding findings could reflect missed . Recommend clinical correlation and close clinical follow-up. Recommend correlation with serial beta-hCG and if clinically deemed necessary with follow-up ultrasound in 7-10 days. the patient can f/u tomorrow per Dr. Rich's previous recommendations Medications Administered Discontinued Medications Generic Name Dose Route Start Last Admin Trade Name Freq PRN Reason Stop Dose Admin Oxycodone HCl 5 mg 09/20/24 18:19 09/20/24 18:26 Oxycodone Hcl Immed Release 5 Mg Tablet PO 09/20/24 18:20 5 mg ONCE ONE Administration Medical Decision Making Medical Decision Making [facility] Narrative: 19 yo female here with multiple complaints. Patient reports she was seen here yesterday and told she was . She had some suprapubic pain and had an US that showed no IUP. Her quant was 376 and her LMP was early August. OB was consulted and patient was thought to have either early , but could not r/o ectopic or SAB. She was recommended to have a repeat US/quant in 48 hrs. Patient reports last evening at 11pm she started having cramping and bright red vaginal bleeding which continued for several hours. She is now having scant vaginal bleeding and no longer needs to use a pad. She is unsure how many pads she used last evening. She does have some mild suprapubic discomfort. She denies back pain, vomiting or fever. She also reports continued sore throat, right sided neck pain. She was diagnosed with strep pharyngitis, torticollis yesterday. She did not fern picker her PCN or start treatment. No diff swallowing, diff breathing, headache, fevers or chills. +suprapubic discomfort to palp with no rebound or guarding TTP to right paraspinal area with no swelling noted Pain with rotation of head right/left. Able to flex/hyperextend no diff No midline tenderness/step offs or deformities. No lymphadenopathy. No meningeal signs. Posterior oropharynx with erythema/swelling with no exudate. Uvula midline. No RESOURCE DIRECTOR. Swallowing secretions with no diff Will obtain labs, perform pelvic exam Differential Diagnosis Differential Diagnoses: The differential diagnosis associated with the presentation includes strep pharyngitis, low suspicion for RPA/RESOURCE DIRECTOR/epiglottis/mono torticollis SAB, early , low suspicion for ectopic , PID Admission/Observation Consideration of admission/observation: Escalation of care including admission/observation considered Consult Healthcare Provider Management of the patient was discussed with: Recruitment Advertising Manager MICROBIOLOGY COORDINATOR (Layla)-recommendations Repeat US today if no change compared to yesterday discharge home. Follow-up tomorrow with MICROBIOLOGY COORDINATOR for repeat quant and re-evaluation. Return for worsening pain or bleeding. Lab Data [facility] Lab Attestation statement: I reviewed the patient's lab results. 09/20/24 15:37 09/20/24 15:37 Labs: Lab Results 09/20/24 Range/Units 15:37 WBC 5.2 (4.8-10.8) X10*3/uL RBC 3.66 L (4.20-5.50) X10*6/uL Hgb 11.6 L (12.0-16.0) g/dl Hct 33.4 L (37.0-47.0) % MCV 91.3 (80.0-98.0) fL MCH 31.7 (27.0-33.0) pg MCHC 34.7 (31.0-35.0) g/dl RDW 11.7 (11.0-16.0) % Plt Count 124 L (160-400) X10*3/uL MPV 11.0 (9.4-12.3) fL Immature Gran % (Auto) 0.2 (0.0-0.4) % Neut % (Auto) 63.6 (45-73) % Lymph % (Auto) 27.4 (20-40) % Loup % (Auto) 7.2 (2-11) % Eos % (Auto) 1.4 (0-4) % Baso % (Auto) 0.2 (0-2) % Lymph # (Auto) 1.4 (1.2-4.9) X10*3/uL Loup # (Auto) 0.4 (0.1-1.2) X10*3/uL Eos # (Auto) 0.1 (0.0-0.4) X10*3/uL Baso # (Auto) 0.0 (0.0-0.2) X10*3/uL Abs Immat Gran (auto) 0.01 (0.00-0.03) X10*3/uL Absolute Neuts (auto) 3.3 (2.0-8.3) x10*3/uL Absolute Nucleated RBC 0.000 (0.0-0.012) X10*3/uL Nucleated RBC % (auto) 0.0 (0.0-0.2) /100WBC Sodium 141 (135-145) mmol/L Potassium 4.1 (3.3-5.1) mmol/L Chloride 110 H (96-108) mmol/L Carbon Dioxide 22 (22-29) mmol/L Anion Gap 13 (12-20) BUN 9 (9-16) mg/dL Creatinine 0.84 (0.5-1.4) mg/dL Estim Creat Clear Calc 95.3 Estimated GFR > 60 Random Glucose 88 (60-115) mg/dL Calcium 9.4 (8.4-10.2) mg/dL Total Bilirubin 0.7 (0.0-1.0) mg/dL AST 17 (5-31) U/L ALT 14 (0-31) U/L Alkaline Phosphatase 45 (39-117) U/L Total Protein 7.4 (6.5-8.0) g/dL Albumin 4.6 (3.5-5.0) g/dL Beta HCG, Quant 260 mIU/mL Independent Interpretation I performed an independent interpretation of an: Ultrasound Radiology Impression Discussion of test interpretation with radiology: I have reviewed the radiologist's reading. Independent Historian Clinical information obtained from an independent historian. 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 Continue vitamins. Prescriptions: No Action penicillin V potassium 500 mg tablet 500 mg PO BID 10 Days Qty: 20 0RF Classic 28 mg iron- 800 mcg tablet 1 tab PO DAILY Qty: 60 0RF Referrals: Mayito Rich MD [Physician] - 1 day Stand Alone Forms: Work/School Release Print Language: Malay
[2024-09-20 15:19] VITALS: BP 118/53; PULSE 77; RESP 18; TEMP 36.8; O2SAT 100; BMI 22.1
[2024-09-20 15:41] LABS: MANUAL DIFF FLAG NO
[2024-09-20 15:42] LABS: Basophils Percent Auto 0.2 % (0-2); Hemoglobin 11.6 g/dl (12.0-16.0); Imm Gran Abs Auto 0.01 X10*3/uL (0.00-0.03); Imm Gran Pct Auto 0.2 % (0.0-0.4); PLT CLUMP 1; Red Cell Distribution Width 11.7 % (11.0-16.0); SCAN SMEAR FLAG 1
[2024-09-20 15:44] LABS: Eosinophils Absolute Auto 0.1 X10*3/uL (0.0-0.4); Eosinophils Percent Auto 1.4 % (0-4); Hematocrit 33.4 % (37.0-47.0); Lymphocytes Absolute Auto 1.4 X10*3/uL (1.2-4.9); Lymphocytes Percent Auto 27.4 % (20-40); Mean Corpuscular HGB Conc 34.7 g/dl (31.0-35.0); Mean Corpuscular Hemoglobin 31.7 pg (27.0-33.0); Mean Corpuscular Volume 91.3 fL (80.0-98.0); Monocytes Absolute Auto 0.4 X10*3/uL (0.1-1.2); Monocytes Percent Auto 7.2 % (2-11); Neutrophils Absolute Auto 3.3 x10*3/uL (2.0-8.3); Neutrophils Percent Auto 63.6 % (45-73); Red Blood Count 3.66 X10*6/uL (4.20-5.50)
[2024-09-20 15:47] LABS: Platelet Count 124 X10*3/uL (160-400); White Blood Count 5.2 X10*3/uL (4.8-10.8)
[2024-09-20 16:05] LABS: Alanine Aminotransferase 14 U/L (0-31); Albumin Level 4.6 g/dL (3.5-5.0); Alkaline Phosphatase 45 U/L (39-117); Anion Gap 13 (12-20); Aspartate Amino Transferase 17 U/L (5-31); Bilirubin Total 0.7 mg/dL (0.0-1.0); Blood Urea Nitrogen 9 mg/dL (9-16); Calcium 9.4 mg/dL (8.4-10.2); Carbon Dioxide 22 mmol/L (22-29); Chloride 110 mmol/L (96-108); Creatinine Clr Calc Pharmacy 95.3; Estimated Glomerular Filt Rate > 60; Glucose Random 88 mg/dL (60-115); HCG Quantitative 260 mIU/mL; Potassium 4.1 mmol/L (3.3-5.1); Sodium 141 mmol/L (135-145); Total Protein 7.4 g/dL (6.5-8.0)
[2024-09-20] MEDS: oxyCODONE HCl Immed Release 5 MG TABLET PO (18:26)
--- NOTE | 2024-09-20 18:31 | P.CONOB_ITS ---
ULTRASONIC SOLDERER - CN: HPI Data of Consult Consult date: 09/20/24 Primary Care Provider: [facility] Consult Narrative Narrative: I was consultedon Rosalba Bass who is a 19 year old female with early gestation; the patient was seen in the emergency room yesterday for strep pharyngitis and then removed with early hCG was 376, ultrasound showed no intrauterine is not adnexal masses. The patient has started having some pelvic cramping with mild vaginal bleeding since yesterday so she came back to emergency. Rh positive, H&H within normal, GC/CT was negative HCG repeated today dropped to 260, hemoglobin/ hematocrit =11.6/12.4 compared to 12.4/35 yesterday cc:: CC: OB [facility] Past Medical History Medical History Pancytopenia Chronic anemia Anemia Surgical History Surgical History No pertinent past surgical history Social History Social History Household Members: Family Housing: House Alcohol intake: current Alcohol intake frequency: holidays/special occasions only Alcohol type: wine Patient Tobacco Use Status: Never used Tobacco Second Hand Smoke Exposure: No Advance Directives: No Advance Directives Information Provided: No Do you have a plan to hurt others: No Plan service: No Current occupational status: employed Meds Allergies Allergy/AdvReac Type Severity Reaction Status Date / Time tree nut Allergy Anaphylaxis Verified 09/20/24 15:20 ULTRASONIC SOLDERER Physical Exam Vitals Vital signs: Temp Pulse Resp BP Pulse Ox O2 Del Method 98.3 F 77 18 118/53 L 100 Room Air 09/20/24 15:19 09/20/24 15:19 09/20/24 15:19 09/20/24 15:19 09/20/24 15:19 09/20/24 15:19 BMI result Body Mass Index 22.1 Additional Comments: Exam reported by Jina García NP as the following: Mild vaginal bleeding, no abdominal if access vaginal bleeding, no cervical motion tenderness or adnexal tenderness, mild pelvic tenderness no rebound or guarding ULTRASONIC SOLDERER - Results Labs 09/20/24 15:37 09/20/24 15:37 Labs: Short CBC 09/20/24 Range/Units 15:37 WBC 5.2 (4.8-10.8) X10*3/uL Hgb 11.6 L (12.0-16.0) g/dl Hct 33.4 L (37.0-47.0) % Plt Count 124 L (160-400) X10*3/uL BMP 09/20/24 15:37 Sodium 141 Potassium 4.1 Chloride 110 H Carbon Dioxide 22 BUN 9 Creatinine 0.84 Calcium 9.4 Liver Function 09/20/24 Range/Units 15:37 Total Bilirubin 0.7 (0.0-1.0) mg/dL AST 17 (5-31) U/L ALT 14 (0-31) U/L Alkaline Phosphatase 45 (39-117) U/L Albumin 4.6 (3.5-5.0) g/dL Assessment and Plan (1) Vaginal bleeding: Status: Acute Plan Recommended to Tessy García NP the following: Differential diagnosis includes SAB, ectopic . Ultrasound to be repeated today in the emergency, if the findings are similar to yesterday's ultrasound, discharge the patient home. Signs and symptoms of incomplete to be given to the patient. Instructions to be given to the patient to come back to the emergency room in case of persistence of worsening of her vaginal bleeding and/or pelvic pain, in case of fever above 100.4, to follow-up in outpatient with her OBGYN office for repeat hCG, ultrasound and evaluation. I spent a total of 20 minutes reviewing the chart, communicating to the emergency room provider and documenting in the medical record.
[2024-09-20 22:11] VITALS: BP 95/60; PULSE 68; RESP 16; TEMP 37.2; O2SAT 98
== END 2024-09-20 22:05 | disposition home or self-care (01) ==
PROVIDERS: Nurse Practitioner Family; Emergency Provider Internal Medicine
DX: N93.9 Abnormal uterine and vaginal bleeding, unspecified (principal); R10.2 Pelvic and perineal pain; Z79.899 Other long term (current) drug therapy
CPT/HCPCS: 36415; 76801; 76817; 80053; 84702; 85025; 99283

== ENCOUNTER → 2024-09-20 17:13 | Outpatient (BNV) | payer MEDICAID, SELFPAY | PROVIDERS: Emergency Provider Internal Medicine; Visit Provider Obstetrics & Gynecology | DX: N93.9 Abnormal uterine and vaginal bleeding, unspecified (principal) | CPT/HCPCS: 99283 ==

== ENCOUNTER 2024-09-23 09:53 | Outpatient (REF) | payer MEDICAID, SELFPAY ==
[2024-09-23 10:22] LABS: HCG Quantitative 53 mIU/mL
== END 2024-09-23 09:54 | disposition home or self-care (01) ==
LOC: HO.LAB 09:53
PROVIDERS: Visit Provider Obstetrics & Gynecology
DX: O03.9 Complete or unspecified spontaneous abortion without complication (principal)
CPT/HCPCS: 36415; 84702; 99212

== ENCOUNTER 2024-09-23 10:05 | Outpatient (AMB) | payer MEDICAID, SELFPAY ==
--- NOTE | 2024-09-23 11:07 | A.OFFVIS_ITS ---
Vital Signs 09/23/24 11:09 Height 5 ft 5 in Weight 134 lb BMI 22.3 BP 104/68 Intake Visit Reasons: Lab follow up Agricultural Engineering Technician: Agricultural Engineering Technician Present (Sharon) Accompanied by: Self / Same As Patient Allergies tree nut Allergy (Verified 09/23/24 11:10) Anaphylaxis HPI Comments Details: Presenting for ED follow-up The patient went to the emergency room on 09/19 for strep throat was diagnosed with hCG was 376, pelvic ultrasound showed the following: IMPRESSION: No intrauterine is identified at this time. Correlation with beta hCG levels is recommended, probably too early in the , as nonvisualization of a gestational sac could be due to an early stage of . Alternatively, lack of an intrauterine gestational sac may also be seen with missed or ectopic , although no adnexal mass is seen to strongly suggest ectopic . Short-term sonographic follow-up and serial beta hCG levels are recommended to assess for development of an intrauterine gestational sac. The patient came back to emergency room on 09/20 for vaginal bleeding, repeat hCG was 260 and pelvic ultrasound showed the following No evidence of intrauterine . No sonographic evidence of ectopic . Given the history of vaginal bleeding findings could reflect missed . Recommend clinical correlation and close clinical follow-up. Recommend correlation with serial beta-hCG and if clinically deemed necessary with follow-up ultrasound in 7-10 days. Today's hCG was down to 53 GC/CT were negative Blood type was A positive Since then the patient has bleeding has slowed down markedly no pelvic pain , no other concerns PFSH Medical History Pancytopenia Chronic anemia Anemia Surgical History No pertinent past surgical history Social History Household Members: Family Housing: House Alcohol intake: current Alcohol intake frequency: holidays/special occasions only Alcohol type: wine Patient Tobacco Use Status: Never used Tobacco Second Hand Smoke Exposure: No service: No Current occupational status: employed Female Reproductive History Menstrual Duration of menses: 6-7 days Date of last menstrual period: 08/07/24 Total pregnancies: 3 Ab spontaneous: 3 Review of Systems Const All systems reviewed & are unremarkable except as noted in HPI and below Physical Exam Vital Signs: Last Vital Signs BP 104/68 09/23/24 11:09 BMI result Body Mass Index 22.3 General: Yes no CVA tenderness External Female Exam: normal external appearance and normal appearance of the urethra Speculum Exam - Vagina: normal appearance of the vagina, normal palpation, no lesions, no masses and other (Minimal blood per vagina, No active bleeding) Speculum Exam - Cervix: normal appearance of the cervix, normal palpation, no lesions, no masses and nontender Bimanual exam- vagina & uterus: normal bimanual exam, normal palpation, uterine size normal, normal palpation, uterine shape normal, No Cervical tenderness present and non-tender Bimanual Exam- Adnexa, other: normal adnexae Back/Spine/Pelvis Back: no CVA tenderness Assessment & Plan Assessment & Plan (1) Complete : Code(s): O03.9 - Complete or unspecified spontaneous without complication Category: Medical Plan: Discussed with the patient the hCG dropped down to 53. Signs and symptoms of incomplete were discussed with the patient, she is to call or come back to emergency room in case of vaginal bleeding, temperature above 100.4 and/ or pelvic pain. Will repeat hCG in 1 week to follow it down to non levels. Offered the patient different options of control including control pills, patch, NuvaRing, Depo-Provera, Nexplanon, IUD, all pros and cons, risks and benefits of each were discussed with the patient, the patient decided not to proceed with any form of control at the moment. Instructions given the patient to backup method for control if she is interested in contraception. All questions answered, the patient verbalized understanding. Instructions given to patient to schedule a follow-up appointment with repeat hCG quantitative, order placed Orders: Orders HCG Quantitative 1 Week O03.9 - Complete or unspecified spontaneous without complication Medications: Discontinued penicillin V potassium Discontinued Reason: Patient Completed Course 500 mg PO BID 10 days 20 tabs 0RF vit [id number] 28 mg iron- 800 mcg (Classic ) Discontinued Reason: Patient Completed Course 1 tab PO DAILY 60 tabs 0RF Coding Level of Care Code Est Pt Level 3 (14923) Diagnoses Complete O03.9
[2024-09-23 11:09] VITALS: BP 104/68; BMI 22.3
== END 2024-09-23 11:31 | disposition home or self-care (01) ==
LOC: HO.HWS 10:05
PROVIDERS: Visit Provider Obstetrics & Gynecology
DX: O03.9 Complete or unspecified spontaneous abortion without complication (principal)
CPT/HCPCS: 99213

== ENCOUNTER 2025-05-18 16:23 | Emergency (ER) | payer MEDICAID, SELFPAY ==
--- NOTE | ~2025-05-18 | US_ITS ---
CLINICAL HISTORY: R adnexal suprapubic tenderness. Vag discharge Ultrasound pelvis transabdominal and transvaginal. COMPARISON: None provided. Technique: Real time sonographic imaging, including color-flow imaging, was performed by the weather reporter. Multiple parts representative static images were saved for review. FINDINGS: Retroverted and retroflexed uterus appears normal and measures 7.5 x 4.7 x 5.7 cm. No uterine fibroids identified. Endometrium: 9 mm, within normal limits. Right ovary appears normal and measures 3.5 x 1.9 x 1.9 cm. Normal color Doppler. No right adnexal mass identified. Left ovary appears normal and measures 3.6 x 1.5 x 1.7 cm. Normal color Doppler. No left adnexal mass identified. Small amount of free fluid present along the left adnexa and in the posterior cul-de-sac, likely physiologic. IMPRESSION: 1. No cause for patient's symptoms identified. No evidence of ovarian torsion. 2. Small amount of free fluid present along the left adnexa and in the posterior cul-de-sac, likely physiologic. This document has been electronically signed by: Hang Louise MD on 05/18/2025 19:52:46
[2025-05-18 16:26] VITALS: BP 102/66; PULSE 73; RESP 18; TEMP 36.6; O2SAT 100; BMI 22.0
--- NOTE | 2025-05-18 16:26 | ED_ITS ---
HPI - General Adult General Chief complaint: General Medical Stated complaint: kidney pain/+preg test? Time Seen by Provider: 05/18/25 17:51 History of Present Illness ED Provider: dunia HPI narrative: 20 F who reports lower abd and R flank pain, vaginal spotting and discharge. Within the week had negative STI testing/pelvic exam at a clinic. Tells me here home urine preg test was pos ysterday.No vomiting/fever. 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 no stones/uti hx. Related Data Allergies Allergy/AdvReac Type Severity Reaction Status Date / Time tree nut Allergy Anaphylaxis Verified 05/18/25 16:28 [facility] Past Medical History Medical History Pancytopenia Chronic anemia Anemia Surgical History No pertinent past surgical history Social History Social History Household Members: Family Housing: House Alcohol intake: current Alcohol intake frequency: holidays/special occasions only Alcohol type: wine Patient Tobacco Use Status: Never used Tobacco Second Hand Smoke Exposure: No service: No Current occupational status: employed Physical Exam ED Exam Exam: EXAM: Gen: Alert, awake, well appearing, well hydrated. Head: Atraumatic Eyes: Anicteric, Normal conjunctiva. ENT: Moist mucosa, no pallor. ? Neck: Supple. Skin: ?No observable rash or bruising on exposed or examined skin Respiratory: Breathing comfortably, No distress.Clear to auscultation bilaterally, symmetric chest expansion, No wheeze, rales, ronchi. Cardiovascular: Regular rate and rhythm. No murmurs or rub. Well perfused periphery, warm extremities. No edema. ? Abdominal: Mild right lower quadrant tenderness on deep palpation Soft, no objective distension. No palpable masses or obvious organomegaly. ?No guarding, no rebound tenderness or other peritoneal findings. : Mild right flank tenderness; Pelvic: chaperoned by Corin BOND: normal external genitalia. speculum, small amt of dark blood pooling in vagina. cervix slightly tender with mucousy dischargy. no purulence. Cultures taken Neuro: Alert. Gross movement of all extremities intact. ? Psych: Calm. Cooperative. MSK: No grossly visible deformity. Vital signs: See flowsheet Vital Signs: Vital Signs - 24 hr 05/18/25 16:26 05/18/25 17:40 05/18/25 18:00 Temperature 97.8 F 97.8 F Pulse Rate 73 74 81 Respiratory Rate 18 18 16 Blood Pressure 102/66 112/69 122/78 Pulse Oximetry 100 100 100 Oxygen Delivery Method Room Air Room Air Room Air 05/18/25 19:11 05/18/25 20:24 Temperature 98.4 F 98.4 F Pulse Rate 77 77 Respiratory Rate 18 18 Blood Pressure 117/74 117/74 Pulse Oximetry 100 100 Oxygen Delivery Method Room Air Room Air BMI result Body Mass Index 22.0 Course Course Course Narrative: Rapid medical examination performed in triage by Essence Mcqueen PA-C. Patient is a 20 year old assigned female at presenting to the emergency department with bilateral flank pain, vaginal bleeding, and recent positive test. Patient states that her flanks have been bother her for a week, she took a test this morning that was positive, and she is having some vaginal bleeding. Patient states that she has 1 living child and 1 miscarriage in September of 2024. Detailed physical exam and review of systems are deferred to the director of primary care. Labs ordered. Patient placed back in the waiting room pending room availability and results. Medications Administered Discontinued Medications Generic Name Dose Route Start Last Admin Trade Name Freq PRN Reason Stop Dose Admin Ketorolac Tromethamine 15 mg 05/18/25 18:08 05/18/25 18:18 Ketorolac Tromethamine 15 Mg/Ml Vial IM 05/18/25 18:09 15 mg ONCE ONE Administration Procedures Procedure Narrative Procedure Narrative: EMERGENCY ULTRASOUND INTERPRETATION-Limited Retroperitoneal (Renal) [This study was ordered, performed, and interpreted by myself. The study reveals: Impression: NO EVIDENCE OF UROLOGIC OBSTRUCTION] [Indication: FLANK PAIN Bladder: ANECHOIC URINE Right Kidney: NO HYDRONEPHROSIS Additional findings: Small free fluid tender over the uterus Performed by: Carroll Haider MD Images were stored CPT: 67833] Medical Decision Making Medical Decision Making MDM Narrative: Medical Decision Makin-year-old female with right flank pain right lower quadrant discomfort vaginal discharge few days ago tested negative for STIs per her verbal report. Also some vaginal spotting and bleeding tonight. She had a positive test at home yesterday. Serum hCG negative here she is non . No hydronephrosis on bedside ultrasound. She did have some pelvic and right adnexal tenderness. Pelvic exam revealed small amount of dark blood pulled in the vault and mucousy discharge from the cervix. No traumatic injuries to the vaginal wall no whitish or purulent discharge STI panel sent. Reassuring lab work. Clinical presentation not suggestive of appendicitis more likely adnexal possibly cyst or cystic structure, PID or TOA. Preliminary Favored Differential Diagnosis: PID, TOA, constipation, UTI, kidney stone, or complication among additional considered etiologies Testing Interpreted Independently: Renal US with out hydronephrosis on POCUS see report Radiology or Lab testing Results Reviewed:TVUS, small physiologic fluid, no adnexal mass/TOA/Torsion. Consults: Not Applicable Independent Historians/External Chart Reviews: Not Applicable Social Determinants of Health Impacting MDM/Planning: Not Applicable Lab Data 05/18/25 16:36 05/18/25 16:36 Labs: Lab Results 05/18/25 05/18/25 Range/Units 16:36 16:43 WBC 4.1 L (4.8-10.8) X10*3/uL RBC 3.70 L (4.20-5.50) X10*6/uL Hgb 11.7 L (12.0-16.0) g/dl Hct 33.7 L (37.0-47.0) % MCV 91.1 (80.0-98.0) fL MCH 31.6 (27.0-33.0) pg MCHC 34.7 (31.0-35.0) g/dl RDW 12.0 (11.0-16.0) % Plt Count 122 L (160-400) X10*3/uL MPV 10.4 (9.4-12.3) fL Immature Gran % (Auto) 0.2 (0.0-0.4) % Neut % (Auto) 49.6 (45-73) % Lymph % (Auto) 39.5 (20-40) % Isabella % (Auto) 8.5 (2-11) % Eos % (Auto) 1.7 (0-4) % Baso % (Auto) 0.5 (0-2) % Lymph # (Auto) 1.6 (1.2-4.9) X10*3/uL Isabella # (Auto) 0.4 (0.1-1.2) X10*3/uL Eos # (Auto) 0.1 (0.0-0.4) X10*3/uL Baso # (Auto) 0.0 (0.0-0.2) X10*3/uL Abs Immat Gran (auto) 0.01 (0.00-0.03) X10*3/uL Absolute Neuts (auto) 2.1 (2.0-8.3) x10*3/uL Absolute Nucleated RBC 0.000 (0.0-0.012) X10*3/uL Nucleated RBC % (auto) 0.0 (0.0-0.2) /100WBC Sodium 145 (135-145) mmol/L Potassium 3.8 (3.3-5.1) mmol/L Chloride 112 H (96-108) mmol/L Carbon Dioxide 24 (22-29) mmol/L Anion Gap 13 (12-20) BUN 6 L (9-16) mg/dL Creatinine 0.69 (0.5-1.4) mg/dL Estim Creat Clear Calc 115.0 Estimated GFR > 60 Random Glucose 101 (60-115) mg/dL Calcium 9.2 (8.4-10.2) mg/dL Total Bilirubin 0.5 (0.0-1.0) mg/dL AST 16 (5-31) U/L ALT 9 (0-31) U/L Alkaline Phosphatase 42 (39-117) U/L Total Protein 7.1 (6.5-8.0) g/dL Albumin 4.8 (3.5-5.0) g/dL Beta HCG, Quant < 2 mIU/mL Urine Color Yellow Urine Appearance Clear Urine pH 7.5 (5.0-9.0) Ur Specific [place] <= 1.005 (1.005-1.025) Urine Protein Negative (Neg-Trace) mg/dL Urine Glucose (UA) Negative (Negative) mg/dL Urine Ketones Negative (Negative) mg/dL Urine Blood Small (1+) H (Negative) Urine Nitrite Negative (Negative) Ur Leukocyte Esterase Negative (Negative) Urine RBC 0-2 (0-2) /HPF Urine WBC 0-5 (0-5) /HPF Ur Squamous Epith Cells 0-2 (0-2) /HPF Urine Bacteria None Seen (None Seen) Hyaline Casts 0-2 (0-2) /LPF Influenza Type A (PCR) NEGATIVE (Negative) Influenza Type B (PCR) NEGATIVE (Negative) RSV RNA Qual (PCR) NEGATIVE (Negative) SARS-CoV-2 RNA (RT-PCR) NEGATIVE (Negative) Discharge Plan Discharge Clinical Impression: Pelvic pain Patient Disposition: Home, Self-Care Instructions: Pelvic Pain (ED) Additional Instructions: _ DISCHARGE DIAGNOSES: Flank and right pelvic pain with vaginal discharge Non by blood testing HISTORY OF PRESENTATION: ?Right flank and lower abdominal pain, recent negative STI testing, vaginal discharge. EMERGENCY DEPARTMENT COURSE,TESTS, TREATMENTS: While in the ED today you had a reassuring ultrasound with a small amount of probably normal pelvic fluid no signs of abscess or other complication in the pelvic organs. Your lab work was reassuring although you do have evidence of low platelet and white blood cell count which is chronic for you you may need to follow up with Hematology their contact numbers attached to this paperwork DISCHARGE MEDICATIONS: ?[We have made no changes to your regular medication regimen] FOLLOW-UP: ?Call your primary or general physician soon as possible to discuss your symptoms, your ED visit and to discuss follow up plans OBGYN INSTRUCTIONS ?& RETURN PRECAUTIONS: If any symptoms change first call your primary physician, if it is after-hours your primary doctors office should have a provider airline lounge receptionist you can speak with. If the symptoms are severe or very concerning to you then call 911 or return to the ED. Carroll Haider MD Emergency Physician [facility] Referrals: [facility] [Provider Group] Referral Note: If you are unable to get an appointment with them call [facility] [place]ology [Provider Group] Interventions: ED Discharge Assessment Last Done: 05/18/25 20:24 Discharge Date/Time: 05/18/25 20:25 Print Language: Luxembourgish
[2025-05-18 16:39] LABS: MANUAL DIFF FLAG NO
[2025-05-18 16:43] LABS: Hematocrit 33.7 % (37.0-47.0); Hemoglobin 11.7 g/dl (12.0-16.0); Imm Gran Abs Auto 0.01 X10*3/uL (0.00-0.03); Imm Gran Pct Auto 0.2 % (0.0-0.4); Lymphocytes Absolute Auto 1.6 X10*3/uL (1.2-4.9); Mean Corpuscular HGB Conc 34.7 g/dl (31.0-35.0); Mean Corpuscular Hemoglobin 31.6 pg (27.0-33.0); Mean Corpuscular Volume 91.1 fL (80.0-98.0); NRBC Abs Auto 0.000 X10*3/uL (0.0-0.012); NRBC Pct Auto 0.0 /100WBC (0.0-0.2); Platelet Count 122 X10*3/uL (160-400); Red Blood Count 3.70 X10*6/uL (4.20-5.50); White Blood Count 4.1 X10*3/uL (4.8-10.8)
[2025-05-18 16:51] LABS: Appearance Urine Clear; Glucose Urine UA Negative (Negative); PH 7.5 (5.0-9.0); Specific Gravity - Urine <= 1.005 (1.005-1.025); UMIC TRIGGER UACC YES
[2025-05-18 17:10] LABS: Alanine Aminotransferase 9 U/L (0-31); Albumin Level 4.8 g/dL (3.5-5.0); Alkaline Phosphatase 42 U/L (39-117); Anion Gap 13 (12-20); Aspartate Amino Transferase 16 U/L (5-31); Blood Urea Nitrogen 6 mg/dL (9-16); Calcium 9.2 mg/dL (8.4-10.2); Carbon Dioxide 24 mmol/L (22-29); Chloride 112 mmol/L (96-108); Creatinine Clr Calc Pharmacy 115.0; Estimated Glomerular Filt Rate > 60; Potassium 3.8 mmol/L (3.3-5.1); Sodium 145 mmol/L (135-145); Total Protein 7.1 g/dL (6.5-8.0)
[2025-05-18 17:18] LABS: Resp Syncy Virus RNA Qual PCR NEGATIVE (Negative); SARS COV2 PCR INHOUSE NEGATIVE (Negative)
[2025-05-18 17:40] VITALS: BP 112/69; PULSE 74; RESP 18; TEMP 36.6; O2SAT 100
--- OUTSIDE RECORDS SUMMARY | 2025-05-18 17:47 | XMS_ITS | Clinical Summary ---
Author Organization [facility] Address [address] [place] [id number] Phone Care Team Providers Care Heading Repairer Name Role Phone Pcp, Unknown Primary Care Provider Unavailabl e Allergies Active Allergy Reactions Criticality Noted Date Comments Tree Nuts 06/29/2024 Medications No known medications Social History Tobacco Use Types Packs/Day Years Used Date Smoking Tobacco: Never Assessed Education Answer Date Recorded Are you interested in more education? Not on jesenia e 06/30/2024 Are you concerned about learning? Not on file 06/30/2024 No 06/30/2024 No 06/30/2024 Digital Access Answer Date Recorded No 06/30/2024 No 06/30/2024 Reliable internet access at home? Not on file 06/30/2024 Device with a working camera? Not on file Intimate Partner Violence Answer Date R ecorded Are you denied basic needs s uch as food, clothing, or medical care? No 06/29/2024 In the past 12 months have y ou been in a relationship with a person who hurts, threatens, or tries to control you? No 06/29/2024 Are you denied basic needs s uch as food, clothing, or medical care? No 06/29/2024 In the past 12 months have y ou been in a relationship with a person who hurts, threatens, or tries to control you? No 06/29/2024 Comments Unknown Sex and Gender Information Value Date Recorded Sex Assigned at Not on file Legal Sex Female 6:53 PM EDT Gender Identity Not on file Sexual Orientation Don't know 06/29/2024 8: 41 PM EDT Last Filed Vital Signs Vital Sign Reading Time Taken Comments Blood Pressure 112/70 06/29/2024 10:01 PM EDT Pulse 82 06/29/2024 10:01 PM EDT Temperature 36.4 C (97.6 F) 06/29/2024 10:01 PM EDT Respiratory Rate 18 06/29/2024 10:01 PM EDT Oxygen Saturation 99% 06/29/2024 10:01 PM EDT Inhaled Oxygen Concentration - - Weight 61.2 kg (135 lb) 06/29/2024 7:35 PM EDT Height 165.1 cm (5' 5 ) 06/29/2024 7:35 PM EDT Body Mass Index 22.47 06/29/2024 7:35 PM EDT Plan of Treatment Health Maintenance Due Date Last Done Comments Adult Td,Tdap Booster 2003 DEPRESSION SCREENING 2015 SMOKING Hx and SMOKELESS TOB ACCO SCREENING 02/26/2016 HPV VACCINES (1 - 3-dose series) 2018 CHLAMYDIA SCREENING 2019 MENINGOCOCCAL VACCINES (B) ( 1 of 2 - Standard) 2019 HEPATITIS C SCREENING 2021 HIV ONE-TIME SCREENING (18-6 5 YEARS) 2021 PAP SMEAR 02/26/2024 COVID-19 VACCINE ( - 2023-2 5 season) 2024 HEPATITIS A VACCINES Aged Out No long er eligible based on patient's age to complete this topic HIB VACCINES Aged Out No longer eligi ble based on patient's age to complete this topic MENINGOCOCCAL VACCINES (ACWY) Aged Out No longer eligible based on patient's age to complete this topic PNEUMOCOCCAL VACCINES (0-49 years) Aged Out No longer eligible based on patient's age to complete this topic Medical Devices Not on file Insurance #4R [place] [id number] [facility] C[employer] [place] [address] [place] [address] [facility]3 [place] [id number] [place] [address] [facility] [place] [id number] [place] [address] [facility] [address] [place] [address] [facility] [place] [address] [place] [address] [facility] [employer] [employer] Care Teams Heading Repairer Relationship Specialty Start Date End Date Pcp, Unknown PCP - General 06/29/24 Additional Source Comments The information contained in this document represents components of the legal health record. It is not the complete legal health record.[facility]
--- OUTSIDE RECORDS SUMMARY | 2025-05-18 17:47 | XMS_ITS | Clinical Summary ---
Author Organization [email or web address] Address [address] [place] [address] Care Team Providers Care Gang Tailer Name Role Phone Rossy Matthew [facility] Primary Care Provider [phone] Social History Tobacco Use Types Packs/Day Years Used Date Smoking Tobacco: Never Assessed Comments Unknown Sex and Gender Information Value Date Recorded Sex Assigned at Female 03/13/2024 11:13 AM EDT Legal Sex Female 12:09 PM EDT Gender Identity Female 03/13/2024 11:13 AM EDT Sexual Orientation Choose not to disclose 2023 11:13 AM EDT Plan of Treatment Health Maintenance Due Date Last Done Comments Depression Screening 2003 HIV Screening 2003 SDOH Screening 2003 Disability Screening 2003 Alcohol/Substance Use Screening 2015 Tobacco Screening 2015 Family Planning (PISQ) 2018 HPV Vaccines (1 - 3-dose series) 2018 Meningococcal B Vaccine (1 o f 2 - Standard) 2019 Hepatitis C Screening 2021 DTaP/Tdap/Td Vaccines (1 - Tdap) 2022 Hepatitis B Vaccines (1 of 3 - 19+ 3-dose series) 2022 Pap Smear 02/26/2024 COVID-19 Vaccine (1 - 2023-2 5 season) 2024 Influenza Vaccine (#1) 2025 Chlamydia and Gonorrhea Screening 09/19/2025 024 Zoster Vaccines (1 of 2) 2053 RSV Patients and Pa tients Aged 60 years or older (1 - 1-dose 75+ series) 2078 HIB Vaccines Aged Out No longer eligi ble based on patient's age to complete this topic Hepatitis A Vaccines Aged Out No long er eligible based on patient's age to complete this topic IPV Vaccines Aged Out No longer eligi ble based on patient's age to complete this topic Meningococcal Vaccine Aged Out No shilpi ana eligible based on patient's age to complete this topic Pneumococcal Vaccine: Pediat rics (0 to 5 Years) and At-Risk Patients (6 to 49) Years Aged Out No longer eligi ble based on patient's age to complete this topic RSV under 20 months Aged Out No longe r eligible based on patient's age to complete this topic Rotavirus Vaccines Aged Out No longer eligible based on patient's age to complete this topic Procedures Procedure Name Priority Date/Time Associated Diagnosis Comments CHLAMYDIA/N. GONORRHOEAE RNA, TMA, UROGENITAL Routine 09/19/2024 9:25 PM EST from Last 3 Months or Most Recently Relevant to Health Maintenance Results * Chlamydia/N. Gonorrhoeae RNA, TMA, Urogenitial (09/19/2024 9:25 PM EST) CT PCR NOT DETECTED Not Detect. [facility] Comment:A not detected test result does not exclude the possibilityof infection because test results can be affected byimproper specimen collection, concurrent antibiotic therapy,or the number of organisms in the specimen which may bebelow the sensitivity of the test. As with many diagnostictests, results from the Xpert CT/NG assay should beinterpreted in conjunction with other laboratory andclinical data available to the clinician.Xpert CT/NG performance has not been evaluated in patientsless than 14 years of age. The assay should not be used forthe evaluationof suspected sexual abuse or for other medico-legalindications. Additional testing is recommended in anycircumstance when false positive or false negative resultscould lead to adverse medical, social or psychologicalconsequences. NG PCR NOT DETECTED Not Detect. [facility] Comment:A not detected test result does not exclude the possibilityof infection because test results can be affected byimproper specimen collection, concurrent antibiotic therapy,or the number of organisms in the specimen which may bebelow the sensitivity of the test. As with many diagnostictests, results from the Xpert CT/NG assay should beinterpreted in conjunction with other laboratory andclinical data available to the clinician.Xpert CT/NG performance has not been evaluated in patientsless than 14 years of age. The assay should not be used forthe evaluationof suspected sexual abuse or for other medico-legalindications. Additional testing is recommended in anycircumstance when false positive or false negative resultscould lead to adverse medical, social or psychologicalconsequences. 09/19/2024 9:25 PM EST 09/19/2024 9:31 PM EST Narrative [facility] - 09/20/2024 4:20 AM EST Urine us Generic External Data Provider LAB MICROBIOLOGY - GENERAL ORDERABLES Final Result [facility] [address] [place] [phone] from Last 3 Months or Most Recently Relevant to Health Maintenance Insurance [employer] Care Teams Gang Tailer Relationship Specialty Start Date End Date Rossy Matthew FNP [address] [place] [phone] PCP - General Family Medicine 03/18/24
[2025-05-18 18:00] VITALS: BP 122/78; PULSE 81; RESP 16; O2SAT 100
[2025-05-18 19:11] VITALS: BP 117/74; PULSE 77; RESP 18; TEMP 36.9; O2SAT 100
[2025-05-18 20:24] VITALS: BP 117/74; PULSE 77; RESP 18; TEMP 36.9; O2SAT 100
[2025-05-19 03:52] LABS: Bacterial Vaginosis PCR NEGATIVE (Negative); Candida Group PCR NOT DETECTED (Not Detect); Candida glab krusei PCR NOT DETECTED (Not Detect); Trichomonas vaginalis PCR NOT DETECTED (Not Detect)
[2025-05-19 05:56] LABS: CT PCR NOT DETECTED (Not Detect.); NG PCR NOT DETECTED (Not Detect.)
== END 2025-05-18 20:25 | disposition home or self-care (01) ==
PROVIDERS: Physician Assistant Medical; Emergency Provider Emergency Medicine
DX: R10.2 Pelvic and perineal pain (principal); N93.9 Abnormal uterine and vaginal bleeding, unspecified; R10.31 Right lower quadrant pain; Z03.818 Encounter for observation for suspected exposure to other biological agents ruled out; Z79.899 Other long term (current) drug therapy
CPT/HCPCS: 36415; 76775; 76830; 76856; 80053; 81001; 81515; 84702; 85025; 87491; 87591; 87637; 96372; 99283; 99284; J1885

== ENCOUNTER → 2025-05-18 18:06 | Outpatient (BNV) | payer MEDICAID, SELFPAY | PROVIDERS: Emergency Provider Emergency Medicine; Visit Provider Radiology Diagnostic Radiology | DX: R10.31 Right lower quadrant pain (principal) | CPT/HCPCS: 76830; 76856 ==

== ENCOUNTER 2025-06-18 08:07 | Emergency (ER) | payer MEDICAID, SELFPAY ==
[2025-06-18 08:12] VITALS: BP 111/59; BP 131/67; PULSE 103; PULSE 98; RESP 20; TEMP 37.8; O2SAT 98; O2SAT 99; BMI 23.3
--- NOTE | 2025-06-18 08:16 | ED.NAVMDI ---
HPI - Nausea/Vomiting/Diarrhea General Chief complaint: Abdominal Pain Stated complaint: N/V,ABD PAIN PER EMS Time Seen by Provider: 06/18/25 08:08 Source: patient Mode of arrival: EMS Limitations: no limitations History of Present Illness HPI Narrative: This is a 20 years old the patient presented to the emergency department with chief complaint of nausea vomiting and abdominal pain she is also complaining of sore throat the symptoms started yesterday she states she has been unable to keep anything down. elicited complaint: nausea and vomiting Onset (ago): day(s) (1) Description of vomiting: watery Description of diarrhea: watery Associated nausea: Yes Associated abdominal pain: Yes Location of pain: diffuse Severity: mild Quality: cramping Exacerbating factors: none Relieving factors: none Related Data Previous Rx's ?Medication ?Instructions ?Recorded ondansetron 4 mg disintegrating 4 mg PO Q8H 4 days #12 tabs 06/18/25 tablet Allergies Allergy/AdvReac Type Severity Reaction Status Date / Time tree nut Allergy Anaphylaxis Verified 06/18/25 08:16 Review of Systems Constitutional: Constitutional: Reports no additional constitutional complaints Cardiovascular: Cardiovascular: Reports no additional cardiovascular complaints Gastrointestinal: Gastrointestinal: Reports nausea and Reports vomiting [facility] Past Medical History Attestation statement: The following information was validated with the patient. [facility] Narrative: Pancytopenia/anemia/ hemorrhoid Medical History Pancytopenia Chronic anemia Anemia Surgical History No pertinent past surgical history Social History Social History Household Members: Family Housing: House Alcohol intake: current Alcohol intake frequency: holidays/special occasions only Alcohol type: wine Patient Tobacco Use Status: Never used Tobacco Second Hand Smoke Exposure: No Advance Directives: No Advance Directives Information Provided: Yes Do you have a plan to hurt others: No Plan service: No Current occupational status: employed Physical Exam Exam: Exam: No acute distress Vital Signs: Vital Signs: Last Vital Signs Temp 99.0 F 06/18/25 10:00 Pulse 85 06/18/25 10:00 Resp 16 06/18/25 10:00 BP 87/53 L 06/18/25 10:00 Pulse Ox 98 06/18/25 10:00 O2 Del Method Room Air 06/18/25 10:00 BMI result Body Mass Index 23.3 Const: General: cooperative and comfortable Nutritional Appearance: average body habitus Orientation/consciousness: oriented to time Limitations: no limitations HEENT: Head: Yes normal to inspection General nose exam: Normal external nose present Face and sinus: Yes normal facial exam Neck: Neck: Yes normal visual inspection Chest: Chest palpation & inspection: normal inspection of the chest Resp: Effort & Inspection: normal respiratory effort Auscultation: clear to auscultation bilaterally Cardio: Jugular venous distension: no JVD Rate: regular rate Rhythm: regular rhythm GI: Inspection: Yes normal to inspection Palpation (GI): Soft to palpation, not firm, nontender and no guarding Auscultation: normal bowel sounds Skin: General skin exam: no rashes or lesions noted, elasticity normal and turgor normal Rashes: no rashes Neuro: General: oriented to time Extrem: General: Yes normal to inspection, Yes full ROM and Yes capillary refill normal Course Reevaluation(s) Reevaluation #1: On re-examination she is feeling better at this time labs are normal I think she can be discharged home at this point she is comfortable with the Time: 11:33 Medications Administered Discontinued Medications Generic Name Dose Route Start Last Admin Trade Name Robiq PRN Reason Stop Dose Admin Sodium Chloride 1,000 mls @ 999 mls/hr 06/18/25 08:15 06/18/25 09:36 Ns IVCONT 06/18/25 09:15 Infused .Q1H1M SHONDA Infusion Sodium Chloride 1,000 mls @ 999 mls/hr 06/18/25 10:00 06/18/25 11:22 Ns IV 06/18/25 11:00 Infused .Q1H1M SHONDA Infusion Ketorolac Tromethamine 15 mg 06/18/25 08:14 06/18/25 08:26 Ketorolac Tromethamine 15 Mg/Ml Vial IVPUSH 06/18/25 08:15 15 mg ONCE ONE Administration Ondansetron HCl 4 mg 06/18/25 08:14 06/18/25 08:25 Ondansetron Hcl 4 Mg/2 Ml Vial IVPUSH 06/18/25 08:15 4 mg ONCE ONE Administration Medical Decision Making Medical Decision Making MDM Narrative: Patient is here complaining of nausea vomiting we will obtain labs, we will administer IV fluid antiemetic Differential Diagnosis Differential Diagnoses: The differential diagnosis associated with the presentation includes Gastroenteritis /strep throat/viral syndrome Admission/Observation Consideration of admission/observation: Escalation of care including admission/observation considered Lab Data [facility] Lab Attestation statement: I reviewed the patient's lab results. 06/18/25 08:23 06/18/25 08:23 Labs: Lab Results 06/18/25 06/18/25 Range/Units 08:23 09:57 WBC 6.3 (4.8-10.8) X10*3/uL RBC 3.76 L (4.20-5.50) X10*6/uL Hgb 11.7 L (12.0-16.0) g/dl Hct 32.9 L (37.0-47.0) % MCV 87.5 (80.0-98.0) fL MCH 31.1 (27.0-33.0) pg MCHC 35.6 H (31.0-35.0) g/dl RDW 12.4 (11.0-16.0) % Plt Count 119 L (160-400) X10*3/uL MPV 11.2 (9.4-12.3) fL Immature Gran % (Auto) 0.3 (0.0-0.4) % Neut % (Auto) 82.7 H (45-73) % Lymph % (Auto) 9.6 L (20-40) % Isabela % (Auto) 7.0 (2-11) % Eos % (Auto) 0.2 (0-4) % Baso % (Auto) 0.2 (0-2) % Lymph # (Auto) 0.6 L (1.2-4.9) X10*3/uL [place] # (Auto) 0.4 (0.1-1.2) X10*3/uL Eos # (Auto) 0.0 (0.0-0.4) X10*3/uL Baso # (Auto) 0.0 (0.0-0.2) X10*3/uL Abs Immat Gran (auto) 0.02 (0.00-0.03) X10*3/uL Absolute Neuts (auto) 5.2 (2.0-8.3) x10*3/uL Absolute Nucleated RBC 0.000 (0.0-0.012) X10*3/uL Nucleated RBC % (auto) 0.0 (0.0-0.2) /100WBC Sodium 137 (135-145) mmol/L Potassium 3.5 (3.3-5.1) mmol/L Chloride 106 (96-108) mmol/L Carbon Dioxide 20 L (22-29) mmol/L Anion Gap 15 (12-20) BUN 6 L (9-16) mg/dL Creatinine 0.83 (0.5-1.4) mg/dL Estim Creat Clear Calc 95.6 Estimated GFR > 60 Random Glucose 124 H (60-115) mg/dL Calcium 9.4 (8.4-10.2) mg/dL Total Bilirubin 0.8 (0.0-1.0) mg/dL AST 19 (5-31) U/L ALT 12 (0-31) U/L Alkaline Phosphatase 52 (39-117) U/L Total Protein 7.4 (6.5-8.0) g/dL Albumin 4.9 (3.5-5.0) g/dL Beta HCG, Quant < 2 mIU/mL Urine Color Yellow Urine Appearance Clear Urine pH 6.5 (5.0-9.0) Ur Specific [place] <= 1.005 (1.005-1.025) Urine Protein Negative (Neg-Trace) mg/dL Urine Glucose (UA) Negative (Negative) mg/dL Urine Ketones Negative (Negative) mg/dL Urine Blood Negative (Negative) Urine Nitrite Negative (Negative) Ur Leukocyte Esterase Negative (Negative) Influenza Type A (PCR) NEGATIVE (Negative) Influenza Type B (PCR) NEGATIVE (Negative) RSV RNA Qual (PCR) NEGATIVE (Negative) SARS-CoV-2 RNA (RT-PCR) NEGATIVE (Negative) S. pyogenes GrpA JACOB Negative (Negative) Independent Historian Clinical information obtained from an independent historian. History obtained from or confirmed by: EMS External Record Review External record reviewed: Inpatient record Discharge Plan Discharge Clinical Impression: Vomiting Qualifiers: Vomiting type: unspecified Nausea presence: with nausea Qualified Code(s): R11.2 - Nausea with vomiting, unspecified Patient Disposition: Home, Self-Care Instructions: Acute Nausea and Vomiting (DC) Additional Instructions: Follow-up with your primary care physician stay on liquid diet today return if worse Prescriptions: New ondansetron 4 mg tablet,disintegrating 4 mg PO Q8H 4 Days Qty: 12 0RF Referrals: Physician,None [Primary Care Provider, Medical] - 06/21/25 Print Language: Occitan
[2025-06-18 08:29] LABS: MANUAL DIFF FLAG NO
[2025-06-18 08:33] LABS: Hematocrit 32.9 % (37.0-47.0); Hemoglobin 11.7 g/dl (12.0-16.0); Imm Gran Abs Auto 0.02 X10*3/uL (0.00-0.03); Imm Gran Pct Auto 0.3 % (0.0-0.4); Lymphocytes Absolute Auto 0.6 X10*3/uL (1.2-4.9); Mean Corpuscular HGB Conc 35.6 g/dl (31.0-35.0); Mean Corpuscular Hemoglobin 31.1 pg (27.0-33.0); Mean Corpuscular Volume 87.5 fL (80.0-98.0); NRBC Abs Auto 0.000 X10*3/uL (0.0-0.012); NRBC Pct Auto 0.0 /100WBC (0.0-0.2); Platelet Count 119 X10*3/uL (160-400); Red Blood Count 3.76 X10*6/uL (4.20-5.50); White Blood Count 6.3 X10*3/uL (4.8-10.8)
[2025-06-18 08:53] LABS: IDNOW Serial# 08D9AD1C; Strep A Nucleic Acid Negative (Negative)
[2025-06-18 08:59] LABS: Alanine Aminotransferase 12 U/L (0-31); Albumin Level 4.9 g/dL (3.5-5.0); Alkaline Phosphatase 52 U/L (39-117); Anion Gap 15 (12-20); Aspartate Amino Transferase 19 U/L (5-31); Blood Urea Nitrogen 6 mg/dL (9-16); Calcium 9.4 mg/dL (8.4-10.2); Carbon Dioxide 20 mmol/L (22-29); Chloride 106 mmol/L (96-108); Creatinine Clr Calc Pharmacy 95.6; Estimated Glomerular Filt Rate > 60; Potassium 3.5 mmol/L (3.3-5.1); Sodium 137 mmol/L (135-145); Total Protein 7.4 g/dL (6.5-8.0)
[2025-06-18 09:07] LABS: Resp Syncy Virus RNA Qual PCR NEGATIVE (Negative); SARS COV2 PCR INHOUSE NEGATIVE (Negative)
--- OUTSIDE RECORDS SUMMARY | 2025-06-18 09:09 | XMS_ITS | Clinical Summary ---
Author Organization [employer] Address [address] [place] [address] Care Team Providers Care Bale Sewer Name Role Phone Rossy Matthew HYDRO OPERATOR Primary Care Provider [phone] Encounters Date Type Department Care Team Description 05/18/2025 Orders Only [facility] External Provider, [facility] from Last 3 Months Social History Tobacco Use Types Packs/Day Years [...] COVID-19 Vaccine (1 - 2023-2 5 season) 2025 Influenza Vaccine (#1) 2025 Chlamydia and Gonorrhea Screening 05/18/2026 05/18/2025, 09/19/2024 Zoster Vaccines (1 of 2) 2053 RSV Patients and Patients Aged 60 years or older (1 - [...] age to complete this topic Pneumococcal Vaccine: Pediatrics (0 to 5 Years) and At-Risk Patients (6 to 49) Years Aged Out No longer eligible b ased on patient's age to complete this topic RSV under 20 months Aged Out No longe r eligible based on patient's age to complete this topic Rotavirus Vaccines Aged Out No longer eligible based on patient's age to complete this topic Procedures Procedure Name Priority Date/Time Associated Diagnosis Comments US PELVIS TRANSVAGINAL Routine 7:52 PM EDT WET PREP, GENITAL Routine 05/18/2025 6:4 9 PM EDT BACTERIAL VAGINOSIS PANEL Routine 05/18/2025 6:49 PM EDT CHLAMYDIA/N. GONORRHOEAE RNA, TMA, UROGENITAL Routine 05/18/2025 6:49 PM EDT URINALYSIS, COMPLETE, WITH REFLEX TO CULTURE Routine 05/18/2025 4:43 PM EDT CBC WITH AUTO DIFFERENTIAL Routine 05/18/2025 4:36 PM EDT HCG, TOTAL, QN Routine 05/18/2025 4:36 PM EDT COMPREHENSIVE METABOLIC PANEL Routine 05/18/2025 4:36 PM EDT SARS COV2/INFLUENZA A/B AND RSV RNA QL NAAT Routine 05/18/2025 4:36 PM EDT from Last 3 Months Results * US Pelvis Transvaginal (05/18/2025 7:52 PM EDT) Anatomical Region Laterality Modality Pelvis Ultrasound 05/18/2025 7:52 PM EDT Narrative 05/18/2025 7:53 PM EDT [place] [id number] Ultrasound Report Signed Patient: Rosalba Bass MR#: [id number] 3 : 2005 Acct:[id number] Age/Sex: 20 / F ADM Date: 05/18/25 Loc: HO.ED Attending Dr: Ordering Physician: Carroll Haider MD Date of Service: 05/18/25 Procedure(s): US pelvic and transvaginal Accession Number(s): [id number] cc: Carroll Haider MD; [facility] CLINICAL HISTORY: R adnexal suprapubic tenderness. Vag discharge Ultrasound pelvis transabdominal and transvaginal. COMPARISON: None provided. Technique: Real time sonographic imaging, including color-flow imaging, was performed by the strategies analyst. Multiple territory service representative static images were saved for review. FINDINGS: Retroverted and retroflexed uterus appears normal and measures 7.5 x 4.7 x 5.7 cm. No uterine fibroids identified. Endometrium: 9 mm, within normal limits. Right ovary appears normal and measures 3.5 x 1.9 x 1.9 cm. Normal color Doppler. No right adnexal mass identified. Left ovary appears normal and measures 3.6 x 1.5 x 1.7 cm. Normal color Doppler. No left adnexal mass identified. Small amount of free fluid present along the left adnexa and in the posterior cul-de-sac, likely physiologic. IMPRESSION: 1. No cause for patient's symptoms identified. No evidence of ovarian torsion. 2. Small amount of free fluid present along the left adnexa and in the posterior cul-de-sac, likely physiologic. This document has been electronically signed by: Hang Louise MD on 05/18/2025 19:52:46 Dictated By: Hang Louise MD Signed By: <Electronically signed by Hang Louise MD in OV> 05/18/251952 DD/ 51 TD/TT: 05/18/251951 Rn Endocrinology: Procedure Note Donotuseinterpreter, Image - 05/19/[address] [address] Ultrasound Report Signed Patient: Becca Bass#: [id number] 3 : 2005Acct:[id number] Age/Sex: 20 / FADM Date: 05/18/25 Loc: HO.ED Attending Dr: Ordering Physician: Carroll Haider MD Date of Service: 05/18/25 Procedure(s): US pelvic and transvaginal Accession Number(s): [id number] cc: Carroll Haider MD; [facility] CLINICAL HISTORY: R adnexal suprapubic tenderness. Vag discharge Ultrasound pelvis transabdominal and transvaginal. COMPARISON: None provided. Technique: Real time sonographic imaging, including color-flow imaging, was performed by the strategies analyst. Multiple territory service representative static images were saved for review. FINDINGS: Retroverted and retroflexed uterus appears normal and measures 7.5 x 4.7 x 5.7 cm. No uterine fibroids identified. Endometrium: 9 mm, within normal limits. Right ovary appears normal and measures 3.5 x 1.9 x 1.9 cm. Normal color Doppler. No right adnexal mass identified. Left ovary appears normal and measures 3.6 x 1.5 x 1.7 cm. Normal color Doppler. No left adnexal mass identified. Small amount of free fluid present along the left adnexa and in the posterior cul-de-sac, likely physiologic. IMPRESSION: 1. No cause for patient's symptoms identified. No evidence of ovarian torsion. 2. Small amount of free fluid present along the left adnexa and in the posterior cul-de-sac, likely physiologic. This document has been electronically signed by: Hang Louise MD on 05/18/2025 19:52:46 Dictated By: Hang Louise MD Signed By: <Electronically signed by Hang Louise MD in OV> 05/18/251952 DD/ 51 TD/TT: 05/18/251951 Rn Endocrinology: us [facility] External Provider IMG US PROCEDURES Edited Result - Final * Bacterial Vaginosis (05/18/2025 6:49 PM EDT) TRICHOMONAS VAGINALIS DETECTION BY PCR NOT DETECTED Not Detect [facility] BACTERIAL VAGINOSIS DETECTION BY PCR NEGATIVE Negative [facility] Comment:The BV organism targ ets of the Xpert Xpress MVP test can becommensal in women; Xpert Xpress MVP positive results forbacterial vaginosis should be considered in conjunction withother clinical and patient information to determine thedisease status. Organisms that are not detected by the XpertXpress MVP test have also been reported to be associatedwith BV and aerobic vaginitis.The Xpert Xpress MVP test performance has not been evaluatedin patients under the age of 14. AMBER GROUP DETECTION BY PCR NOT DETECTED Not Detect [facility] Amber glab krusei PCR NOT DETECTED Not Detect [facility] 05/18/2025 6:49 PM EDT 05/18/2025 6:53 PM EDT us Generic External Data Provider LAB MICROBIOLOGY - GENERAL ORDERABLES Final Result [facility] [address] [place] [phone] * Chlamydia/N. Gonorrhoeae RNA, TMA, Urogenitial (05/18/2025 6:49 PM EDT) CT PCR NOT DETECTED Not Detect. [facility] Comment:A not detected test result [...] psychologicalconsequences. NG PCR NOT DETECTED Not Detect. [facility] Comment:A not detected test result [...] lead to adverse medical, social or psychologicalconsequences. 05/18/2025 6:49 PM EDT 05/18/2025 6:53 PM EDT Generic External Data Provider LAB MICROBIOLOGY - GENERAL ORDERABLES Final Result Performing Organization Address [facility]/ZIP Co de Phone Number [facility] [address] [place] [phone] * Wet prep, genital (05/18/2025 6:49 PM EDT) Vaginal Fluid Vaginal structure / Unknown 05/18/2025 6:49 PM EDT 05/18/2025 6:53 PM EDT Comment:Vaginal Narrative [facility] - 05/18/2025 6:56 PM EDT Trichomonas Prep Direct Microscopic Exam Trichomonas Prep No trichomonads or yeast seen Specimen Source: Vaginal Generic External Data Provider LAB MICROBIOLOGY - GENERAL ORDERABLES Final Result Performing Organization Address [facility] Co de Phone Number [facility] [address] [place] [phone] * (ABNORMAL) Urinalysis, Complete, with Reflex to Culture (05/18/2025 4:43 PM EDT) Color Urine Yellow [facility] Appearance Urine Clear [facility] PH 7.5 5.0 - 9.0 [facility] Glucose Urine UA Negative Negative mg/dL [facility] Urine Blood Small (1+)(A) Negative [facility] Specific [place] - Urine <=1.005 1.005 - 1.025 [facility] Urine Protein Negative Neg-Trace mg/dL [facility] Urine Ketones Negative Negative mg/dL [facility] Nitrite Urine Negative Negative [facility] Leukocyte Esterase Urine Negative Negative [facility] RBC Urine 0-2 0 - 2 /HPF [facility] Urine WBC 0-5 0 - 5 /HPF [facility] Urine Squamous Epithelial Cell 0-2 0 - 2 /HPF [facility] Urine Bacteria None Seen None Seen [facility] Hyaline Casts, Urine 0-2 0 - 2 /LPF [facility] 05/18/2025 4:43 PM EDT 05/18/2025 4:46 PM EDT Narrative [facility] - 05/18/2025 5:02 PM EDT [id number], Clean Catch us Generic External Data Provider LAB URINE ORDERAB LES Final Result [facility] [address] [place] [phone] * SARS-CoV-2 RNA, Influenza A/B, and RSV RNA, Ql NAAT (05/18/2025 4:36 PM EDT) Influenza A PCR NEGATIVE Negative [facility] Influenza B PCR NEGATIVE Negative [facility] Resp Syncy Virus RNA Qual PCR NEGATIVE Negative [facility] SARS COV2 PCR NEGATIVE Negative [facility] Comment:All test results mus t be correlated with clinical findings.Negative results do not preclude SARS-CoV2, influenza Avirus, influenza B virus and/or RSV infectionand should not be used as the sole basis for treatment orother patient management decisions. Negative results must becombined with clinical observations, patient history, andepidemiological information.This test has not been evaluated for monitoring treatment ofinfection.This test has been authorized by the FDA under an EmergencyUse Authorization (EUA) for use by authorized laboratories.Testing performed on the i3 membrane GeneXpert utilizingreal-time RT-PCR.All SARS CoV2 and positive influenza A/B results arereported to [facility]. 05/18/2025 4:36 PM EDT 05/18/2025 4:39 PM EDT us Generic External Data Provider LAB MICROBIOLOGY - GENERAL ORDERABLES Final Result [facility] [address] [place] [phone] * (ABNORMAL) CBC auto differential (05/18/2025 4:36 PM EDT) White Blood Count 4.1(L) 4.8 - 10.8 X10*3/uL [facility] Red Blood Count 3.70(L) 4.20 - 5.50 X10*6/uL [facility] Hemoglobin 11.7(L) 12.0 - 16.0 g/dl [facility] Hematocrit 33.7(L) 37.0 - 47.0 % [facility] Mean Corpuscular Volume 91.1 80.0 - 98.0 fL [facility] Mean Corpuscular Hemoglobin 31.6 27.0 - 33.0 pg [facility] Mean Corpuscular HGB Conc 34.7 31.0 - 35.0 g/dl [facility] Red Cell Distribution Width 12.0 11.0 - 16.0 % [facility] Platelet Count 122(L) 160 - 400 X10*3/uL [facility] Mean Platelet Volume 10.4 9.4 - 12.3 fL [facility] Neutrophils Percent Auto 49.6 45 - 73 % [facility] Imm Gran Pct Auto 0.2 0.0 - 0.4 % [facility] Lymphocytes Percent Auto 39.5 20 - 40 % [facility] Monocytes Percent Auto 8.5 2 - 11 % [facility] Eosinophils Percent Auto 1.7 0 - 4 % [facility] Basophils Percent Auto 0.5 0 - 2 % [facility] NRBC Pct Auto 0.0 0.0 - 0.2 /100WBC [facility] Neutrophils Absolute Auto 2.1 2.0 - 8.3 x10*3/uL [facility] Imm Gran Abs Auto 0.01 0.00 - 0.03 X10*3/uL [facility] Lymphocytes Absolute Auto 1.6 1.2 - 4.9 X10*3/uL [facility] Monocytes Absolute Auto 0.4 0.1 - 1.2 X10*3/uL [facility] Eosinophils Absolute Auto 0.1 0.0 - 0.4 X10*3/uL [facility] Basophils Absolute Auto 0.0 0.0 - 0.2 X10*3/uL [facility] NRBC Abs Auto 0.000 0.0 - 0.012 X10*3/uL [facility] 05/18/2025 4:36 PM EDT 05/18/2025 4:39 PM EDT us Generic External Data Provider LAB BLOOD ORDERAB LES Final Result [facility] [address] [place] [phone] * hCG, Total, Quantitative (05/18/2025 4:36 PM EDT) HCG Quantitative <2 mIU/mL [facility] Comment:Weeks post LMP Appro ximate hCG(Last Menstrual Period) Range (mIU/ml)3 - 4 weeks 9 - 1304 - 5 weeks 75 - 2,6005 - 6 weeks 850 - 20,8006 - 7 weeks 4000 - 100,2007 - 12 weeks 11,500 - 289,26653 - 16 weeks 18,300 - 137,46605 - 29 weeks (2nd trimester) 1,400 - 53,63906 - 41 weeks (3rd trimester) 940 - 60,000The Cifuentes B- hCG assay is used for the early detection ofpregnancy; it cannot be used to diagnose any conditionunrelated to . If a B-hCG level is not supportedby the clinical evidence, results should be confirmed by analternative method (qualitative urine hCG, for example). 05/18/2025 4:36 PM EDT 05/18/2025 4:39 PM EDT us Generic External Data Provider LAB BLOOD ORDERAB LES Final Result [facility] [address], [place] [phone] * (ABNORMAL) Comprehensive Metabolic Panel (05/18/2025 4:36 PM EDT) Sodium 145 135 - 145 mmol/L [facility] Potassium 3.8 3.3 - 5.1 mmol/L [facility] Chloride 112(H) 96 - 108 mmol/L [facility] Carbon Dioxide 24 22 - 29 mmol/L [facility] Anion Gap 13 12 - 20 [facility] Urea Nitrogen (BUN) 6(L) 9 - 16 mg/dL [facility] Creatinine, Serum 0.69 0.5 - 1.4 mg/dL [facility] Creatinine Clr Calc Pharmacy 115.0 [facility] Comment:Provided height and weight: 165.1 cm,60.1 kg.eGFR (calculated from the MDRD study equation) and eCrCl(calculated from the Cockcroft-Gault equation) are based ondifferent parameters and may not yield comparable results.If eCrCl result is absurd, please check patient'sheight/weight. Estimated Glomerular Filt Rate >60 [facility] Comment:Chronic Kidney Disea se: Estimated GFR < 60 mL/min/[id number] Kidney Disease: Estimated GFR < 15 mL/min/1.73m2 Glucose 101 60 - 115 mg/dL [facility] Calcium 9.2 8.4 - 10.2 mg/dL [facility] Bilirubin, Total 0.5 0.0 - 1.0 mg/dL [facility] Aspartate Amino Transferase 16 5 - 31 U/L [facility] Alanine Aminotransferase 9 0 - 31 U/L [facility] Total Protein 7.1 6.5 - 8.0 g/dL [facility] Albumin Level 4.8 3.5 - 5.0 g/dL [facility] Alkaline Phosphatase 42 39 - 117 U/L [facility] 05/18/2025 4:36 PM EDT 05/18/2025 4:39 PM EDT us Generic External Data Provider LAB BLOOD ORDERAB LES Final Result Performing Organization Address City/State/[facility] Co de Phone Number [facility] [address] [place] [phone] from Last 3 Months Insurance [email or web address] C3 Care Teams Bale Sewer Relationship Specialty Start Date End Date Rossy Matthew FNP [address] [place] [address] PCP - General Family Medicine 03/18/24
[2025-06-18 10:00] VITALS: BP 87/53; PULSE 85; RESP 16; TEMP 37.2; O2SAT 98
[2025-06-18 10:02] LABS: Appearance Urine Clear; Glucose Urine UA Negative (Negative); PH 6.5 (5.0-9.0); Specific Gravity - Urine <= 1.005 (1.005-1.025)
[2025-06-18 11:47] VITALS: BP 93/51; PULSE 75; RESP 16; TEMP 37.1; O2SAT 98
== END 2025-06-18 11:48 | disposition home or self-care (01) ==
PROVIDERS: Emergency Provider Emergency Medicine
DX: R11.2 Nausea with vomiting, unspecified (principal); R10.2 Pelvic and perineal pain; Z03.818 Encounter for observation for suspected exposure to other biological agents ruled out; Z79.899 Other long term (current) drug therapy
CPT/HCPCS: 36415; 80053; 81003; 84702; 85025; 87637; 87651; 96361; 96374; 96375; 99284; J1885; J2405

== ENCOUNTER 2025-09-04 13:24 | Inpatient (IN) | payer MEDICAID, SELFPAY ==
[2025-09-04] VITALS (8 sets, daily range): BP systolic 80–110; BP diastolic 51–86; PULSE 45–76; RESP 12–20; TEMP 36.3–37; O2SAT 98–100; BMI 23.1
--- NOTE | 2025-09-04 | ECG_ITS ---
Test Reason : bradycardia Blood Pressure : */* mmHG Vent. Rate : 47 BPM Atrial Rate : 47 BPM P-R Int : 148 ms QRS Dur : 92 ms QT Int : 460 ms P-R-T Axes : 41 65 55 degrees QTcB Int : 407 ms Sinus bradycardia with sinus arrhythmia Otherwise normal ECG When compared with ECG of 02-Nov-2022 17:20, Premature ventricular complexes are no longer Present Vent. rate has decreased by 41 bpm Referred By: Kwame Thomas Electronically Signed By: MAJOR AYALA
--- NOTE | ~2025-09-04 | US_ITS ---
CLINICAL HISTORY: Right upper quadrant pain, ?Gallbladder edema --- Additional Notes or Special Instructions: Abdominal ultrasound of right upper quadrant US abdomen limited Comparison: CT/REG/SR - CT ABDOMEN PELVIS W IV CON - 09/04/25 18:29 EST Findings: The common duct is 5 mm in diameter. Minimal echogenic debris/small stones versus artifact in the gallbladder. No wall thickening or pericholecystic fluid. There is no sonographic Vernon sign. No ascites. IMPRESSION: Minimal echogenic debris/small stones versus artifact in the gallbladder. No acute inflammatory findings. No wall edema. This document has been electronically signed by: Arik Sweet MD on 09/05/2025 14:12:59
--- NOTE | ~2025-09-04 | CT_ITS ---
CLINICAL HISTORY: severe abd pain and intractable CT abdomen and pelvis with contrast Comparison: CT/SR - CT ABDOMEN PELVIS WITHOUT IV CONTRAST - 11/03/22 11:58 EST Findings: The lung bases are clear. There is nonspecific gallbladder wall edema. Gallbladder is not distended, no gallstones are seen, and there is no appreciable pericholecystic fat stranding. There is no biliary duct dilation. The liver, pancreas, adrenal glands, and kidneys are unremarkable. There is borderline splenomegaly. The appendix is normal. The remainder of the gastrointestinal tract is unremarkable. There is trace free fluid in the cul-de-sac almost certainly physiologic. The uterus and adnexa are unremarkable. The bladder is partially decompressed. There are no enlarged lymph nodes. The aorta and IVC are normal. There is no fracture or suspicious lytic or sclerotic lesion. IMPRESSION: 1. Nonspecific gallbladder wall edema. No other findings of cholecystitis. Consider right upper quadrant ultrasound if clinically indicated. 2. Borderline splenomegaly. This document has been electronically signed by: Lamine Ramos MD on 09/04/2025 19:24:44
[2025-09-04 13:57] LABS: Baso%MD 0.3 %; Eos%MD 0.4 %; Hematocrit 38.3 % (37.0-47.0); Hemoglobin 12.9 g/dl (12.0-16.0); IG%MD 0.4 %; Lymph%MD 10.9 %; Mean Corpuscular HGB Conc 33.7 g/dl (31.0-35.0); Mean Corpuscular Hemoglobin 30.5 pg (27.0-33.0); Mean Corpuscular Volume 90.5 fL (80.0-98.0); Mono%MD 5.2 %; NRBC Abs Auto 0.000 X10*3/uL (0.0-0.012); NRBC Pct Auto 0.0 /100WBC (0.0-0.2); Neut%MD 82.8 %; Platelet Count 155 X10*3/uL (160-400); Red Blood Count 4.23 X10*6/uL (4.20-5.50); White Blood Count 14.5 X10*3/uL (4.8-10.8)
--- NOTE | 2025-09-04 13:58 | ED_ITS ---
HPI - Nausea/Vomiting/Diarrhea General Chief complaint: Nausea/Vomiting/Diarrhea Stated complaint: ABD PAIN,VOMITING PER EMS Time Seen by Provider: 09/04/25 13:42 Source: patient Limitations: no limitations History of Present Illness HPI Narrative: Patient presented to the emergency department complaining of nausea vomiting inability to keep fluids down since last night MD elicited complaint: nausea and vomiting Onset (ago): day(s) (1) Description of vomiting: watery Description of diarrhea: watery Associated nausea: Yes Associated abdominal pain: No Radiation: diffuse Quality: cramping Relieving factors: none Associated symptoms: denies other symptoms Related Data Previous Rx's ?Medication ?Instructions ?Recorded cyanocobalamin (vitamin B-12) 1,000 mcg PO DAILY #30 t abs 09/06/25 1,000 mcg tablet (Vitamin B-12) ondansetron 4 mg disintegrating 4 mg PO Q8H PRN nausea and 09/06/25 tablet vomiting #10 tabs Allergies Allergy/AdvReac Type Severity Reaction Status Date / Time tree nut Allergy Anaphylaxis Verified 09/04/25 13:40 Review of Systems 2 Constitutional: Constitutional: Reports no additional constitutional complaints ENT: Reports system reviewed and no additional complaints, except as documented Gastrointestinal: Gastrointestinal: Reports nausea PMFSH Past Medical History PMFSH Narrative: Anemia Medical History (Updated 09/06/25 @ 11:18 by Barbara Fink MD) Intractable vomiting with nausea Pancytopenia Chronic anemia Anemia Surgical History No pertinent past surgical history Social History Social History Household Members: Children and Other Housing: Apartment Do you presently have visiting nurse or other home services: No Alcohol intake: current Alcohol intake frequency: holidays/special occasions only Alcohol type: wine Patient Tobacco Use Status: Never used Tobacco Second Hand Smoke Exposure: No Substance Use Type: Marijuana service: No Current occupational status: employed Physical Exam 2 Exam: Exam: Mild distress Vital Signs: Vital Signs: Last Vital Signs Temp 97.7 F 09/06/25 11:28 Pulse 70 09/06/25 11:28 Resp 18 09/06/25 11:28 BP 110/68 09/06/25 11:28 Pulse Ox 97 09/06/25 11:28 O2 Del Method Room Air 09/06/25 11:28 BMI result Body Mass Index 23.1 Const: General: cooperative Nutritional Appearance: well nourished O rientation/consciousness: patient oriented x3 HEENT: Head: Yes normal to inspection Face and sinus: Yes normal facial exam Throat: Yes posterior oropharynx normal Neck: Neck: Yes normal visual inspection Chest: Chest palpation & inspection: normal inspection of the chest Resp: Effort & Inspection: normal respiratory effort Auscultation: clear to auscultation bilaterally Cardio: Jugular venous distension: no JVD Rate: regular rate Rhythm: r egular rhythm GI: Inspection: Yes normal to inspection Palpation (GI): Soft to palpation, not firm and nontender Skin: General skin exam: no rashes or lesions noted Lesions: no lesions Rashes: no rashes Neuro: General: patient oriented x3 Cranial nerves: Yes CN's II-XII intact bilaterally Course Reevaluation(s) Reevaluation #1: 4:35 PM 09/04/2025 (Dr. Carroll Haider): I assumed care of this patient at this time previous provider has working diagnosis of cannabis hyperemesis syndrome he she has been getting repeated doses of antiemetics and fluid I will reassess her. Reevaluation #2: [id number]: Patient remains profoundly nauseated, unable to tolerate any oral fluid, still having pain. Prior imaging of the abdomen was nearly 2 years ago given the level of her pain and vomiting. CT was performed. This showed nonspecific edema of the gallbladder wall without stones. Therefore bedside ultrasound was performed by myself. See above. The wall was quite significantly thickened, however no stones were present, CBD was normal. She has no other clear ideology other than infection or inflammation directly of the gallbladder. To explain this, for instance, no hypoalbuminemic state or alternative third spacing ideology. For this reason, general surgery was consulted given the lack of fever, sepsis, stones. They did not feel she met criteria for any urgent surgical intervention but would follow along. Case discussed with hospitalist, case discussed with general surgery, Dr. Polk who evaluated the patient. Plan for admission for intractable nausea/vomiting with dehydration. Medications Administered Discontinued Medications Generic Name Dose Route Start Last Admin Trade Name Freq PRN Reason Stop Dose Admin Cyanocobalamin 1,000 mcg 09/05/25 09:00 09/06/25 08:53 Cyanocobalamin (Vitamin B-12) 1,000 Mcg Tablet PO 1,000 mcg DAILY SHONDA Administration Diazepam 2.5 mg 09/04/25 14:11 09/04/25 14:32 Diazepam 10 Mg/2 Ml Cartridge IVPUSH 09/04/25 14:12 2.5 mg STAT STA Administration Diphenhydramine HCl 12.5 mg 09/04/25 13:47 09/04/25 13:55 Diphenhydramine Hcl 50 Mg/Ml Vial IVPUSH 09/04/25 13:48 12.5 mg ONCE ONE Administration Droperidol 0.625 mg 09/04/25 16:06 09/04/25 16:19 Droperidol 5 Mg/2 Ml Vial IVPUSH 09/04/25 16:07 0.625 mg ONCE ONE Administration Droperidol 1.25 mg 09/04/25 18:08 09/04/25 18:52 Droperidol 5 Mg/2 Ml Vial IVPUSH 09/04/25 18:09 1.25 mg ONCE ONE Administration Sodium Chloride 1,000 mls @ 999 mls/hr 09/04/25 14:00 09/04/25 16:53 Ns IVCONT 09/04/25 15:00 Infused .Q1H1M SHONDA Infusion Sodium Chloride 1,000 mls @ 999 mls/hr 09/04/25 14:00 09/04/25 16:54 Ns IVCONT 09/04/25 15:00 Infused .Q1H1M SHONDA Infusion Dextrose/Sodium Chloride 1,000 mls @ 125 mls/hr 09/04/25 18:15 09/06/25 10:47 D51/2ns IVCONT Infused .Q8H SHONDA Infusion Lactated Ringer's 1,000 mls @ 125 mls/hr 09/04/25 20:45 09/05/25 08:00 Lr IVCONT Infused .Q8H SHONDA Infusion Piperacillin Sod/Tazobactam 50 mls @ 100 mls/hr 09/04/25 22:00 09/05/25 04:55 Sod 3.375 gm/ Sodium Chloride IV Infused Q6H SHONDA Infusion Iohexol 100 ml 09/04/25 18:38 09/04/25 18:38 Iohexol 350 Mg/Ml 100 Ml Infus..Btl IV 09/04/25 18:39 85 ml ONCE ONE Administration Metoclopramide HCl 10 mg 09/04/25 13:47 09/04/25 13:55 Metoclopramide Hcl 10 Mg/2 Ml Vial IVPUSH 09/04/25 13:48 10 mg ONCE ONE Administration Potassium Chloride 40 meq 09/06/25 07:38 09/06/25 08:54 Potassium Chloride Er 20 Meq Tab.Er.Prt PO 09/06/25 07:39 40 meq ONCE ONE Administration Sodium Chloride 3 ml 09/05/25 00:00 09/06/25 08:50 0.9 % Sodium Chloride Flush 3 Ml Syringe IVFLUSH Not Given QSHIFT SHONDA Procedures Procedure Narrative Procedure Narrative: EMERGENCY ULTRASOUND INTERPRETATION- Limited Point of Care Biliary [This study was ordered, performed, and interpreted by myself. The study reveals: Impression: Nondistended gallbladder without stones, thick edematous wall 6.4 mm. Sonographic Vernon's sign present. [Indication: RUQ PAIN Gallbladder: No stones. Gallbladder etienne quite edematous and thick diffusely measurements 6.4 mm -Additional: WALL MEASUREMENT: 6.4 mm CBD MEASURMENT IF OBTAINED: < 4mm Performed by: Carroll Haider MD Images were stored CPT:33491] Medical Decision Making Medical Decision Making MDM Narrative: Patient is here with nausea vomiting we will insert an IV administer antiemetic check labs Differential Diagnosis Differential Diagnoses: The differential diagnosis associated with the presentation includes Viral gastroenteritis/cannabinoids hyperemesis/cyclic vomiting Lab Data 09/06/25 05:06 09/06/25 05:06 Labs: Lab Results 09/04/25 09/04/25 Range/Units 13:50 14:00 WBC 14.5 H (4.8-10.8) X10*3/uL RBC 4.23 (4.20-5.50) X10*6/uL Hgb 12.9 (12.0-16.0) g/dl Hct 38.3 (37.0-47.0) % MCV 90.5 (80.0-98.0) fL MCH 30.5 (27.0-33.0) pg MCHC 33.7 (31.0-35.0) g/dl RDW 12.5 (11.0-16.0) % Plt Count 155 L D (160-400) X10*3/uL MPV 11.4 (9.4-12.3) fL Absolute Nucleated RBC 0.000 (0.0-0.012) X10*3/uL Nucleated RBC % (auto) 0.0 (0.0-0.2) /100WBC Neutrophils % (Manual) 90 H (45-73) % Band Neutrophils % 1 L (3-5) % Lymphocytes % (Manual) 7 L (20-40) % Monocytes % (Manual) 1 L (2-11) % Basophils % (Manual) 1 (0-2) % Abs Neuts (Manual) 13.2 H (2.0-8.3) X10*3/uL Lymphocytes # (Manual) 1.0 L (1.2-4.9) X10*3/uL Monocytes # (Manual) 0.1 (0.1-1.2) X10*3/uL Basophils # (Manual) 0.1 (0.0-0.2) X10*3/uL Toxic Vacuolation PRESENT Platelet Estimate NORMAL (NORMAL) Large Platelets PRESENT Plt Morphology Comment NOTED RBC Morphology NOTED Tear Drop Cells 1+ (0-2) /OIF [place] Cells 1+ (0-2) /OIF Acanthocytes (Spur) 1+ (0-2) /OIF Sodium 141 (135-145) mmol/L Potassium 3.6 (3.3-5.1) mmol/L Chloride 110 H (96-108) mmol/L Carbon Dioxide 20 L (22-29) mmol/L Anion Gap 15 (12-20) BUN 11 (9-16) mg/dL Creatinine 0.80 (0.5-1.4) mg/dL Estim Creat Clear Calc 103.2 Estimated GFR > 60 Random Glucose 145 H (60-115) mg/dL Calcium 9.8 (8.4-10.2) mg/dL Magnesium 2.2 (1.6-2.6) mg/dL Total Bilirubin 0.7 (0.0-1.0) mg/dL AST 23 (5-31) U/L ALT < 6 (0-31) U/L Alkaline Phosphatase 62 (39-117) U/L Total Protein 7.9 (6.5-8.0) g/dL Albumin 5.2 H (3.5-5.0) g/dL Lipase 9 (8-78) U/L Beta HCG, Quant < 2 mIU/mL Urine Color [place] A Urine Appearance Turbid Urine pH 5.5 (5.0-9.0) Ur Specific [place] >= 1.030 H (1.005-1.025) Urine Protein 100 (2+) H (Neg-Trace) mg/dL Urine Glucose (UA) Negative (Negative) mg/dL Urine Ketones 80 (Negative) mg/dL Urine Blood Moderate (2+) H (Negative) Urine Nitrite Negative (Negative) Ur Leukocyte Esterase Trace H (Negative) Urine RBC 0-2 (0-2) /HPF Urine WBC 6-10 H (0-5) /HPF Ur Squamous Epith Cells >20 (0-2) /HPF Other Crystals Present Urine Bacteria Trace (None Seen) Hyaline Casts 6-10 (0-2) /LPF Granular Casts Present Urine Opiates Screen Not Detected (Not Detect) Ur Buprenorphine Scrn Not Detected (Not Detect) ng/mL Ur Oxycodone Screen Not Detected (Not Detect) ng/mL Urine Methadone Screen Not Detected (Not Detect) ng/mL Urine Fentanyl Screen Not Detected (Not Detect) Ur Barbiturates Screen Not Detected (Not Detect) Ur Phencyclidine Scrn Not Detected (Not Detect) Ur Amphetamines Screen Not Detected (Not Detect) U Benzodiazepines Scrn Not Detected (Not Detect) Urine Cocaine Screen Not Detected (Not Detect) U Marijuana (THC) Screen POSITIVE H (Not Detect) Discharge Plan Discharge Clinical Impression: Intractable vomiting with nausea Patient Disposition: Admitted As Inpatient Interventions: Admission Worksheet (ED) Last Done: 09/04/25 23:37 Discharge Date/Time: 09/05/25 00:09
--- OUTSIDE RECORDS SUMMARY | 2025-09-04 14:01 | XMS_ITS | Clinical Summary ---
Author Organization [employer] Address [address] [place] [address] Care Team Providers Care Costumer Assistant Name Role Phone Unavailable Primary Care Provider Unavailabl e Encounters Date Type Department Care Team Description 06/18/2025 Orders Only GENERIC EXTERNAL DATA DEPARTMENT Provider, Generic External Data from Last 3 Months Social History Tobacco [...] 3-dose series) 2018 Meningococcal B Vaccine (1 of 2 - Standard) 2019 Hepatitis C Screening 2021 DTaP/Tdap/Td Vaccines (1 - Tdap) 2022 Hepatitis B Vaccines (1 of 3 - 19+ 3-dose series) 2022 Pap Smear 02/26/2024 COVID-19 Vaccine (1 - 2024- season) 2025 Influenza Vaccine (#1) 2025 Chlamydia and Gonorrhea Screening 05/18/2026 05/18/2025, 05/18/2025, 05/18/2025, Additional history exists Zoster Vaccines (1 of 2) 2053 RSV [...] 49) Years Aged Out No longer eligible based on patient's age to complete this topic RSV under 20 months Aged Out No longe r eligible based on patient's age to complete this topic Rotavirus Vaccines Aged Out No longer eligible based on patient's age to complete this topic Procedures Procedure Name Priority Date/Time Associated Diagnosis Comments CBC WITH AUTO DIFFERENTIAL Routine 06/18/2025 8:23 AM EDT CHLAMYDIA/N. GONORRHOEAE RNA, TMA, UROGENITAL Routine 05/18/2025 6:49 PM EDT from Last 3 Months or Most Recently Relevant to Health Maintenance Results * (ABNORMAL) CBC auto differential (06/18/2025 8:23 AM EDT) White Blood Count 6.3 4.8 - 10.8 X10*3/uL [facility] Red Blood Count 3.76(L) 4.20 - 5.50 X10*6/uL [facility] Hemoglobin 11.7(L) 12.0 - 16.0 g/dl [facility] Hematocrit 32.9(L) 37.0 - 47.0 % [facility] Mean Corpuscular Volume 87.5 80.0 - 98.0 fL [facility] Mean Corpuscular Hemoglobin 31.1 27.0 - 33.0 pg [facility] Mean Corpuscular HGB Conc 35.6(H) 31.0 - 35.0 g/dl [facility] Red Cell Distribution Width 12.4 11.0 - 16.0 % [facility] Platelet Count 119(L) 160 - 400 X10*3/uL [facility] Mean Platelet Volume 11.2 9.4 - 12.3 fL [facility] Neutrophils Percent Auto 82.7(H) 45 - 73 % [facility] Imm Gran Pct Auto 0.3 0.0 - 0.4 % [facility] Lymphocytes Percent Auto 9.6(L) 20 - 40 % [facility] Monocytes Percent Auto 7.0 2 - 11 % [facility] Eosinophils Percent Auto 0.2 0 - 4 % [facility] Basophils Percent Auto 0.2 0 - 2 % [facility] NRBC Pct Auto 0.0 0.0 - 0.2 /100WBC [facility] Neutrophils Absolute Auto 5.2 2.0 - 8.3 x10*3/uL [facility] Imm Gran Abs Auto 0.02 0.00 - 0.03 X10*3/uL [facility] Lymphocytes Absolute Auto 0.6(L) 1.2 - 4.9 X10*3/uL [facility] Monocytes Absolute Auto 0.4 0.1 - 1.2 X10*3/uL [facility] Eosinophils Absolute Auto 0.0 0.0 - 0.4 X10*3/uL [facility] Basophils Absolute Auto 0.0 0.0 - 0.2 X10*3/uL [facility] NRBC Abs Auto 0.000 0.0 - 0.012 X10*3/uL [facility] 06/18/2025 8:23 AM EDT 06/18/2025 8:28 AM EDT us Generic External Data Provider LAB BLOOD ORDERAB LES Final Result [facility] [address] [place] [address] [phone] * Chlamydia/N. Gonorrhoeae RNA, TMA, Urogenitial (05/18/2025 6:49 PM EDT) CT PCR NOT DETECTED Not Detect. [facility] Comment:A not detected test result does [...] psychologicalconsequences. NG PCR NOT DETECTED Not Detect. [facility] Comment:A not detected test result does [...] LAB MICROBIOLOGY - GENERAL ORDERABLES Final Result [facility] [address] [place] [address] [phone] from Last 3 Months or Most Recently Relevant to Health Maintenance Insurance [facility] C3
--- OUTSIDE RECORDS SUMMARY | 2025-09-04 14:01 | XMS_ITS | Data Portability ---
Author Organization ANN MARIE Bhagat s, [address] Address [address] [place] [address] Care Team Providers Care Plumber And Tinner Name Role Phone MERLIN LANDRUM Primary Care Provider [phone] Assessment No assessment recorded. Plan of Treatment Reminders Order Date Submit Date Provider Last Modified By Organization Details Last Modified Time Details Appointments None recorded. Lab culture, urine 2022 023 [facility], [address] [place] [address], [id number], 3 06:06:29 vaginal pathogens panel, GARLAND+probe, vaginal fluid 2022 023 [facility], [address] [place] [address], [id number], 3 16:05:56 urinalysis, dipstick 2022 023 [email or web address] [facility], [address] [place] [address], [id number], 3 17:10:39 test, urine 2022 023 [email or web address] [facility], [address] [place] [address], [id number], 3 17:10:40 Referral None recorded. Procedures None recorded. Surgeries None recorded. Imaging None recorded. Medication Orders ceftriaxone 250 mg solution for injection 2022 023 [email or web address] Not available 3 19:57:03 azithromyci n 1 gram oral packet [email or web address] [facility] #[id number], [address] [place], [address], 17:10:36 Patient TargetsNo targets recorded. Patient Instructions Encounter Date Encounter Id Patient Instructions Last Modified By Organization Details Last Modified Time 08/28/2023 [id number] safer sex: care instructions mickey Not available 08/28/2023 17:11:58 vaginitis: care instructions alexandria Not available 08/28/2023 17:11:58 How can you care for yourself at home? Take your medicines exactly as prescribed. Call your doctor if you think you are having a problem with your medicine. Ask your doctor if your sex partner(s) also needs treatment. Do not eat or drink anything that has alcohol if you are taking metronidazole (Flagyl). Wash your vulva daily with water. You also can use a mild, unscented soap if you want. Do not use scented bath products. And do not use vaginal sprays or douches. Change out of wet or damp clothes as soon as possible. Wear cotton underwear. And avoid tight clothing that could increase moisture. Put a washcloth soaked in cool water on the area to relieve itching. Or you can take cool baths. If you have dryness because of menopause, use estrogen cream or pills that your doctor prescribes. Ask your doctor about when it is okay to have sex. Use a personal lubricant before sex if you have dryness. Examples are Astroglide, K-Y Jelly, and Wet Lubricant Gel. When should you call for help? Call your doctor now or seek immediate medical care if: You have a fever. You have new or increased pain in your vagina or pelvis. You have new or worse vaginal itching or discharge. mickey Not available 08/28/2023 17:11:57 Reason for Referral None Reported. Results Created Date Observation Date Name Description Value Unit Range Abnormal Flag Note LastModifiedBy Organization Detail LastModifiedTime 08/28/20 23 08/30/2023 URINE CULTU RE, ROUTI NE urine culture, routine TNP Test not perfo rmed. No urine speci men was recei agustin for cultu re. Not Available [facility] ([facility]) [address] [place], [address], 08/30/2023 06:06:29 08/28/20 23 08/30/[address] PROBL EM request problem TNP Test not perfo rmed. No urine speci men was recei agustin for cultu re. TEST: [id number] Urine Cultu re, Routi ne Not Available [facility] ([facility]) [address] [place], [address], 08/30/2023 06:06:30 08/28/20 23 08/31/2023 NUSWA B VAGIN ITIS PLUS (VG+) atopobium vaginae HIGH - 2 score abnormal Not Available [facility] ([facility]) [address] [place], [address], 09/01/2023 16:05:56 08/28/20 23 08/31/2023 NUSWA B VAGIN ITIS PLUS (VG+) bvab 2 HIGH - 2 score abnormal Not Available [facility] ([facility]) [address] [place], [address], 09/01/2023 16:05:56 08/28/20 23 08/31/2023 NUSWA B VAGIN ITIS PLUS (VG+) megasphaera 1 HIGH - 2 score abnormal Calcu late total score by jessain g the 3 indiv idual bacte rial vagin osis (BV) marke r score s toget her. Total score is inter prete d as follo ws: Total score 0-1: Indic ates the absen ce of BV. Total score 2: Indet ermin ate for BV. Addit ional clini david data shoul d be evalu ated to estab fabienne a diagn osis. Total score 3-6: Indic ates the prese nce of BV. This test was devel oped and its perfo rmanc e carla cteri stics deter mined by [employer]. It has not been clear ed or appro agustin by the Food and Drug Admin istra tion. Not Available [facility] ([facility]) [address] [place], [address], 09/01/2023 16:05:56 08/28/20 23 08/31/2023 NUSWA B VAGIN ITIS PLUS (VG+) cruz albicans, GARLAND NEGATI VE negati ve Not Available [facility] ([facility]) [address] [place], [address], 09/01/2023 16:05:56 08/28/20 23 08/31/2023 NUA B VAGIN ITIS PLUS (VG+) cruz glabrata, GARLAND NEGATI VE negati ve Not Available [facility] ([facility]) [address] [place], [address], 09/01/2023 16:05:56 08/28/20 23 09/01/2023 NUSWA B VAGIN ITIS PLUS (VG+) trich vag by GARLAND NEGATI VE negati ve Not Available [facility] ([facility]) [address] [place], [address], 09/01/2023 16:05:56 08/28/20 23 09/01/2023 NUSWA B VAGIN ITIS PLUS (VG+) chlamydia trachomatis, [place]ARLAND NEGATI VE negati ve Not Available [facility] ([facility]) [address] [place], [address], 09/01/2023 16:05:56 08/28/2009/01/2023 NUSWA B VAGIN ITIS PLUS (VG+) neisseria gonorrhoeae, [place]ARLAND NEGATI VE negati ve Not Available [facility] ([facility]) [address] [place], [address], 09/01/2023 16:05:56 08/28/20 23 08/28/2023 pregn pedro test, urine Unknown Analyte negati ve Not Available noris scherer [address] [place], [address], 08/28/2023 16:13:02 08/28/20 23 08/28/2023 pregn pedro test, urine Unknown Analyte yes Not Available [facility] [address] [place], [address], 08/28/2023 16:13:02 08/28/20 23 08/28/2023 urina lysis , dipst ick Unknown Analyte Dark Yellow Not Available noris scherer [address] [place], [address], 08/28/2023 16:12:55 08/28/20 23 08/28/2023 urina lysis , dipst ick Unknown Analyte Cloudy Not Available [facility] [address] [place], [address], 08/28/2023 16:12:55 08/28/20 23 08/28/2023 urina lysis , dipst ick Unknown Analyte Negati ve Not Available noris scherer [address] [place], [address], 08/28/2023 16:12:55 08/28/20 23 08/28/2023 urina lysis , dipst ick Unknown Analyte Negati ve Not Available noris scherer [address] [place], [address], 08/28/2023 16:12:55 08/28/20 23 08/28/2023 urina lysis , dipst ick Unknown Analyte Negati ve Not Available noris scherer [address] [place], [address], 08/28/2023 16:12:55 08/28/20 23 08/28/2023 urina lysis , dipst ick Unknown Analyte 1.020 Not Available [address] [place], [address], 08/28/2023 16:12:55 08/28/2008/28/2023 urina lysis , dipst ick Unknown Analyte Trace- intact Not Available [address] [place], [address], 08/28/2023 16:12:55 08/28/2008/28/2023 urina lysis , dipst ick Unknown Analyte 7.0 Not Available [address] [place], [address], 08/28/2023 16:12:55 08/28/2008/28/2023 urina lysis , dipst ick Unknown Analyte Negati ve Not Available [address] [place], [address], 08/28/2023 16:12:55 08/28/2008/28/2023 urina lysis , dipst ick Unknown Analyte 0.2 E.U./d L Not Available [address] [place], [address], 08/28/2023 16:12:55 08/28/2008/28/2023 urina lysis , dipst ick Unknown Analyte Negati ve Not Available [address] [place], [address], 08/28/2023 16:12:55 08/28/2008/28/2023 urina lysis , dipst ick Unknown Analyte Small Not Available [address] [place], [address], 08/28/2023 16:12:55 Result Notes None recorded. Problems Name Problem SNOMED Code Status Onset Date Resolution Date Notes Provider Name and Address Organization Details Recorded Time Anemia 835381181 Active ANN MARIE Lynch [facility] 08/28/2023 16:11:58 Problem Notes None recorded. Medical Equipment None Reported. Allergies No known drug allergies Medications Name Sig Start Date Stop Date Status Note LastModified by Organization Details LastModified Time ceftriaxone 250 mg solution for injection Take 500 mg by injection route. 2022 active Not Available Not Available Not Avai lable doxycycline monohydrate 100 mg capsule TAKE 1 CAPSULE BY MOUTH TWICE A DAY 08/28 completed Not Available Not Available Not Available azithromyci n 1 gram oral packet Take by oral route for 1 day. active Not Available Not Available No t Available amoxicillin 500 mg-potassiu m clavulanate 125 mg tablet TAKE 1 TABLET BY MOUTH TWICE A DAY 08/28 completed Not Available Not Available Not Available azithromyci n 500 mg tablet Take 2 tablets by oral route. 2022 active Not Available Not Available Not Avai lable Vitals Date Recorded Body height Body mass index (BMI) Body mass index (BMI) [Percentile] Per age and sex Body weight Body temperature Heart rate Pain severity - 0-10 verbal numeric rating [Score] - Reported Oxygen saturation Provider Name and Address Organization Details Last Updated DateTime 3 165.1 cm 21.6 kg/m2 48 % 33368.0 1 g 98.6 [degF] 82 /min 0 99 % Rose JESUS - [facility] 3 16:11:02 Social History Question Answer Notes LastModified by Organization D etails LastModified Time Have You Had A Flu Shot This Season? Yes Information not available 08/28/2023 Have You Recently Traveled Abroad? No Information not available 08/28/2023 Sex: Unknown Functional Status Question Answer Note LastModified by Organizat ion Details LastModified Time Do you use any illicit or recreational drugs? No Information not available 08/28/2023 Do you or have you ever used any other forms of tobacco or nicotine? Yes weed Information not available 08/28/2023 What is your level of alcohol consumption? None Information not available 08/28/2023 Are you currently employed? No Information not available 08/28/2023 Mental Status None recorded. Family History Relationship Description Onset Age of this Age Resolved Age Notes LastModified by Organization Details LastModified Time Father No current problems or disability Not available 08/28 16:12:08 Mother No current problems or disability Not available 08/28 16:12:08 Medical History No medical history recorded. Gynecological History Statement/Question Response Date of LMP 08/07/2023 Is there any chance of ? No LMP Definite Obstetrics History GPAL:G 0 P 0 0 0 0 Past Encounters Encounter ID Performer Location Encounter Start Date Encounter Closed Date Diagnosis/Indication Diagnosis SNOMED-CT Code Diagnosis ICD10 Code Diagnosis IMO Codes Diagnosis Note [id number] Prachipauly Mitchell, [place] [address] [place] [address] 08/28/2023 16:06:48 08/28/2023 17:12:30 Exposure to sexually transmissible disorder 889791504 Z20.2 Safer sex is a way to reduce your risk of getting an infection spread through sex. It can also help prevent . Most infections that are spread through sex, also called sexually transmitte d infections or STIs, can be cured. But some can decrease your chances of getting if they are not treated early. Others, such as herpes, have no cure. And some, such as HIV, can be deadly.Sev eral products can help you practice safer sex and reduce your chance of STIs. One of the best is a condom. There are condoms for men and for women. The female condom is a tube of soft plastic with a closed end that is placed deep into the vagina. You can use a special rubber sheet (dental dam) for protection during oral sex. Disposable gloves can keep your hands from touching blood, semen, or other body fluids that can carry infections .Remember that control methods such as diaphragms , IUDs, foams, and control pills do not stop you from getting STIs. Vaginitis 11342001 N76.0 Health Concerns Section Related Observation LastModified by Organization Detai ls LastModified Time None Recorded Concern Status LastModified by Organization Details LastModified Time None Recorded Advance Directives Directive None Recorded Payers Insurance Date Sequence Insurance Name Policy Number Policy Dempsey Covered Member ID Dempsey Member ID Guarantor Name 08/31/2023 1 [place] [facility] Rosalba aBss [id number] Rosalba Bass 08/31/2023 1 [facility] PL[facility] - [facility] (MEDICAID REPLACEMENT - HMO) GERALDO Bass [id number] Rosalba Bass 08/31/2023 1 [facility] (MEDICAID HMO) GERALDO Bass [id number] Rosalba Bass Notes Date Note Type Note Provider Name and Address Organization Details Recorded Time 3 text/htm l Abdominal Pain UCReported by PatientAbdominal PainFor quality, patient reportspainandcramping. For source of patient information, patient reportspatientandpatient arrived at urgent care ambulatory. For location, patient reportssuprapubic. For severity, patient reportsmoderate. For duration, patient reportsintermittent. For onset/timing, patient reportsbetter. For context, patient reportsno travel. For modifying factors, patient reportslaying down. For associated symptoms, patient reportsno fever,no chills,no blood in the urine,no heartburn,no shortness of breath, andno change in bowel/bladder habits. For other, patient reportsdenies possible . Diarrhea UCReported by Patient presents for exposure to sti . states her baby dad told her he had a std after they had sex. they weren't in as relationship. presently she has vaginal discharge that has odor for the past 5 days Prachi Mitchell NP [address] [place], [address], [place] - [facility] 08/28/2023 18:34:05 OBGyn Episode No OBEpisode recorded.
--- OUTSIDE RECORDS SUMMARY | 2025-09-04 14:01 | XMS_ITS | Clinical Summary ---
Author Organization [facility] Address [address] [place] [id number] Phone Care Team Providers Care Bulldozer Operator Name Role Phone Pcp, Unknown Primary Care [...] (18-6 5 YEARS) 2021 PAP SMEAR 02/26/2024 INFLUENZA VACCINE (#1) 2025 COVID-19 VACCINE (1 - 2024-2 6 season) 2025 HEPATITIS A VACCINES Aged Out No long [...] topic Medical Devices Not on file Insurance [facility] [address] [place] [address] [place] [address] C3 ACO C3 ACO [facility] C3 ACO [facility] C3 [place] [place] [address] [facility] C3 ACO Care Teams Bulldozer Operator Relationship Specialty Start Date End Date Pcp, Unknown PCP - General 06/29/24 Additional Source Comments The information contained in this document represents components of the legal health record. It is not the complete legal health record.[facility]
[2025-09-04 14:12] LABS: Appearance Urine Turbid; Glucose Urine UA Negative (Negative); PH 5.5 (5.0-9.0); Specific Gravity - Urine >= 1.030 (1.005-1.025); UMIC TRIGGER UACC YES
[2025-09-04 14:23] LABS: Band Neutrophils Percent 1 % (3-5); Basophils Abs Manual 0.1 X10*3/uL (0.0-0.2); Basophils Percent Manual 1 % (0-2); Lymphocytes Absolute Manual 1.0 X10*3/uL (1.2-4.9); Lymphocytes Percent Manual 7 % (20-40); Monocytes Absolute Manual 0.1 X10*3/uL (0.1-1.2); Monocytes Percent Manual 1 % (2-11); Neutrophils Absolute Manual 13.2 X10*3/uL (2.0-8.3); Neutrophils Percent Manual 90 % (45-73)
[2025-09-04 14:23] LABS: Other Crystals Urine Present; UACC Culture Trigger YES
[2025-09-04 14:25] LABS: Acanthocytes 1+ (0-2) /OIF; Burr Cells 1+ (0-2) /OIF; Large Platelet PRESENT; RBC Morphology NOTED; Tear Drop Cells 1+ (0-2) /OIF; Toxic Vacuolation PRESENT
[2025-09-04 14:28] LABS: Alanine Aminotransferase < 6 U/L (0-31); Albumin Level 5.2 g/dL (3.5-5.0); Alkaline Phosphatase 62 U/L (39-117); Anion Gap 15 (12-20); Aspartate Amino Transferase 23 U/L (5-31); Blood Urea Nitrogen 11 mg/dL (9-16); Calcium 9.8 mg/dL (8.4-10.2); Carbon Dioxide 20 mmol/L (22-29); Chloride 110 mmol/L (96-108); Creatinine Clr Calc Pharmacy 103.2; Estimated Glomerular Filt Rate > 60; Magnesium 2.2 mg/dL (1.6-2.6); Potassium 3.6 mmol/L (3.3-5.1); Sodium 141 mmol/L (135-145); Total Protein 7.9 g/dL (6.5-8.0)
[2025-09-04] MEDS: diazePAM 10 MG/2 ML CARTRIDGE 2.5 MG IVPUSH (14:32)
[2025-09-04 14:35] LABS: Cannabinoid Screen Urine POSITIVE (Not Detect)
--- NOTE | 2025-09-04 14:52 | PC.NURSE ---
Pt HR remains between 40s-60s, pt has ambulated to BR x2, at this time pt noted to be sleeping when staff peaks into room. Vomiting has settled down IVF still running with reminding to keep her arm straight.
[2025-09-04] MEDS: iohexoL 350 MG/ML 100 ML INFUS..BTL IV (18:38)
[2025-09-04] MEDS: Dextrose 5 % and 0.45 % NaCl 1,000 ML 125 ML IVCONT (18:51)
--- NOTE | 2025-09-04 20:42 | PM.IMHP ---
History of Present Illness Date of Service: 09/04/25 Attending physician on admission: Luigi Callahan Chief Complaint: Nausea, vomiting or diarrhea Rosalba Bass is a 20 years old woman with no significant past medical history who presents to the emergency department complaining of multiple episodes of bilious vomiting, nausea and watery nonbloody diarrhea that started today after eating food from [employer]: Beef. She also reported some right upper quadrant and pelvic pain. She denied fever or chills. She denies sick contacts or recent travel history. She does not take medications at home. She has a history of bipolar, depression anxiety disorder. She vapes nicotine. Denied alcohol abuse and smoke a joint of marijuana daily. Denied illicit drug use. She denied history of abdominal surgeries. LMP was a few days ago. In the ED, she was found to have stable vital signs. Blood workup showed leukocytosis of 14.5. Hemoglobin is 3.9 and platelets 155. Differential showed 1% bandemia, 90% neutrophils, lymphocytes 7%, monocytes 1%, basophils 1%, NC drops 1+ versus cells 1+ and spur cells 1+. There are no significant electrolyte imbalances except for hyperchloremia a low CO2 of 20. Creatinine and BUN are normal. LFTs are normal. Urinalysis: Urine orange, appearance turbid, pH 5.5, elevated specific gravity, proteinuria 2+, ketones 80, glucose negative, blood 2+, nitrites negative, leukocyte steroids trace, RBC 0-2, WBCs 0-10, squamous cells > 20, crystals present. Abdominal pelvis CT scan without IV contrast showed nonspecific gallbladder wall edema but no other finding of cholecystitis and borderline splenomegaly. ED tx: NS 2 L bolus, Benadryl 12.5 mg IV, Valium 2.5 mg IV, droperidol 0.625 + 1.25 mg IV, Reglan 10 mg IV Review of Systems Review of Systems: All 12 systems were reviewed and normal except as noted in HPI. [facility] Medical History (Updated 09/05/25 @ 00:25 by Luigi Callahan MD) Intractable vomiting with nausea Pancytopenia Chronic anemia Anemia Surgical History No pertinent past surgical history Social History Household Members: Family Housing: House Alcohol intake: current Alcohol intake frequency: holidays/special occasions only Alcohol type: wine Patient Tobacco Use Status: Never used Tobacco Second Hand Smoke Exposure: No Use of substances other than those prescribed or required for medical reasons: Yes Substance Use Type: Marijuana Substance Use Frequency: Daily Last Used Substance: Hours (ago) Advance Directives: No Advance Directives Information Provided: Yes Nutrition Risks: No Nutritional Risk Patient : No service: No Current occupational status: employed Meds Allergies Allergy/AdvReac Type Severity Reaction Status Date / Time tree nut Allergy Anaphylaxis Verified 09/04/25 13:40 Active Medications: Current Medications Acetaminophen (Acetaminophen 325 Mg Tablet) 650 mg PO Q6H PRN PRN Reason: Pain, Mild 1-3,fever,headache Calcium Carbonate (Calcium Carbonate 750 Mg Tab.Chew) 750 mg PO Q4H PRN PRN Reason: Heartburn Hydromorphone HCl (Hydromorphone Hcl 1 Mg/Ml Syringe) 0.5 mg IVPUSH Q4H PRN; Protocol PRN Reason: abdominal pain Dextrose/Sodium Chloride (D51/2ns) 1,000 mls @ 125 mls/hr IVCONT .Q8H [facility] Last Admin: 09/04/25 18:51 Dose: 125 mls/hr Lactated Ringer's (Lr) 1,000 mls @ 125 mls/hr IVCONT .Q8H [facility] Magnesium Hydroxide (Milk Of Magnesia 30 Ml Oral.Susp) 30 ml PO DAILY PRN PRN Reason: Constipation Melatonin (Melatonin 3 Mg Tablet) 6 mg PO BEDTIME PRN PRN Reason: Insomnia Sodium Chloride (0.9 % Sodium Chloride Flush 3 Ml Syringe) 3 ml IVFLUSH QSHIFT [facility] Physical Exam Vital Signs and Narrative: Vital Signs: Last Vital Signs Temp 98.6 F 09/04/25 18:50 Pulse 76 09/04/25 18:50 Resp 18 09/04/25 18:50 BP 100/57 L 09/04/25 18:50 Pulse Ox 100 09/04/25 18:50 O2 Del Method Room Air 09/04/25 18:50 BMI result Body Mass Index 23.1 General: Alert, oriented, in no acute distress. Somnolent but easy to arouse. Afebrile. HEENT: Head normocephalic, atraumatic. PER, EOMI. Sclerae anicteric, conjunctiva clear. Oropharynx without erythema or exudate. Mucous membranes dry. Neck: Supple, no lymphadenopathy, or JVD. Heart: RRR, no murmurs, rubs or gallops. Lungs: Clear to auscultation bilaterally. No wheezes, rales, or rhonchi. Normal respiratory effort. Abdomen: Soft, nondistended, right upper quadrant and pelvic tenderness without rebound or guarding. Increased bowel sounds. Splenomegaly. Extremities: No calf tenderness bilaterally, no swelling Musculoskeletal: Full range of motion. No joint swelling, deformity, or tenderness. Normal muscle tone and strength. Skin: Warm/Dry. No pallor. No jaundice. Bruising areas over the anterior aspect of right leg. Neurologic: Alert & oriented x4. Moving all extremities spontaneously. Normal speech. Psychological: Normal mood and affect. Thought process coherent. Results Labs 09/04/25 21:38 09/04/25 13:50 Labs: Laboratory Results - last 24 hr 09/04/25 09/04/25 13:50 14:00 MCV 90.5 MCH 30.5 MCHC 33.7 RDW 12.5 Plt Count 155 L D MPV 11.4 Absolute Nucleated RBC 0.000 Nucleated RBC % (auto) 0.0 Neutrophils % (Manual) 90 H Band Neutrophils % 1 L Lymphocytes % (Manual) 7 L Monocytes % (Manual) 1 L Basophils % (Manual) 1 Abs Neuts (Manual) 13.2 H Lymphocytes # (Manual) 1.0 L Monocytes # (Manual) 0.1 Basophils # (Manual) 0.1 Toxic Vacuolation PRESENT Platelet Estimate NORMAL Large Platelets PRESENT Plt Morphology Comment NOTED RBC Morphology NOTED Tear Drop Cells 1+ (0-2) [place] Cells 1+ (0-2) Acanthocytes (Spur) 1+ (0-2) Anion Gap 15 Estim Creat Clear Calc 103.2 Estimated GFR > 60 Random Glucose 145 H Calcium 9.8 Magnesium 2.2 Total Bilirubin 0.7 AST 23 ALT < 6 Alkaline Phosphatase 62 Total Protein 7.9 Albumin 5.2 H Beta HCG, Quant < 2 Urine Color Frederick A Urine Appearance Turbid Urine pH 5.5 Ur Specific [place] >= 1.030 H Urine Protein 100 (2+) H Urine Glucose (UA) Negative Urine Ketones 80 Urine Blood Moderate (2+) H Urine Nitrite Negative Ur Leukocyte Esterase Trace H Urine RBC 0-2 Urine WBC 6-10 H Ur Squamous Epith Cells >20 Other Crystals Present Urine Bacteria Trace Hyaline Casts 6-10 Granular Casts Present Urine Opiates Screen Not Detected Ur Buprenorphine Scrn Not Detected Ur Oxycodone Screen Not Detected Urine Methadone Screen Not Detected Urine Fentanyl Screen Not Detected Ur Barbiturates Screen Not Detected Ur Phencyclidine Scrn Not Detected Ur Amphetamines Screen Not Detected U Benzodiazepines Scrn Not Detected Urine Cocaine Screen Not Detected U Marijuana (THC) Screen POSITIVE H Assessment and Plan (1) Intractable vomiting with nausea: Status: Acute (2) RUQ pain: Status: Acute Plan Rosalba Bass is a 20 y/o woman with no significant past medical history who presents with: Nausea, vomiting and diarrhea. ? food poisoning (ate tacobell beef taco) versus cannabinoid hyperemesis syndrome. Advance diet as tolerated. Continue IV fluids for now and antiemetic therapy as needed. Check blood cultures x2. Check GI panel. Start treatment with Zosyn IV empirically. Right upper quadrant pain + gallbladder edema. Pain control. Check abdominal ultrasound. Patient evaluated by surgery and recommended no surgical interventions. Abnormal differential: Acanthosis, robbie cell, tear drop cells, toxic back correlation. Splenomegaly, chronic thrombocytopenia noted, blood in urine but no RBCs; proteinuria. Assess for hemolytic anemia. Recheck CBC with differential now. Check retic count, ferritin, iron panel, vitamin B12, folate level, LDH, total CK, lipase, haptoglobin, direct Ruiz, INR and lactic acid. Will obtain Hematology consult. Low CO2 + elevated ketones. Likely secondary to poor p.o. intake + vomiting. Continue IV fluids. Check lactic acid. Continue to monitor. Chronic thrombocytopenia, unclear etiology. Workup as above. Marijuana use. Patient encouraged to stop smoking marijuana. Hx bipolar disorder. Not currently taking meds for this. Code status: Full DVT prophylaxis: SCDs Patient will need hospitalization for at least 2 midnights for ongoing acute GI symptoms treatment with antiemetic therapy and IV fluids; she will need further evaluation workup for normal differential and presence of splenomegaly. This documentation was generated using dictation software; minor spreading or piped pocket machine operator errors may be present. Quality Stroke Does the patient have a stroke diagnosis?: No VTE Prior VTE?: No VTE Risk Level:: Medical - moderate - high VTE Device Contraindication: N/A - Device Ordered VTE Drug Contraindication: Treatment Not Indicated
--- NOTE | 2025-09-04 20:49 | P.CONGS_ITS ---
History of Present Illness Consult details Consult date: 09/04/25 Narrative: 20 year female admitted for intractable nausea and vomiting. She came to the ER earlier today because of multiple episodes of nausea and vomiting as well as diarrhea. As per notes by the emergency room physician, she did not have any tenderness but did mentions having some abdominal pain and pelvic pain so she underwent imaging studies including an ultrasound and a CAT scan. This showed specific edema of the gallbladder wall without under changes. There were no gallstones noted either I was therefore consulted because of this abnormal gallbladder wall on imaging. On exam currently, she denied significant abdominal pain. She says she actually felt better and says that her nausea had resolved. She denies any fever or chills. She admits to smoking marijuana regularly. Review of Systems 2 Constitutional: Constitutional: Denies chills and Denies fever(s) Cardiovascular: Cardiovascular: Denies chest pain, Denies dyspnea and Denies dyspnea on exertion Respiratory: Respiratory: Denies cough, Denies dyspnea and Denies dyspnea on exertion Gastrointestinal: Gastrointestinal: Denies hematochezia and Denies change in bowel habits Genitourinary: Genitourinary: Denies hematuria Musculoskeletal: Musculoskeletal: Denies back pain and Denies limited range of motion Neurologic: Denies focal weakness and Denies convulsions Psychiatric: Psychiatric: Denies depression and Denies mood swings PMFSH Past Medical History Medical History (Updated 09/08/25 @ 14:02 by Munira Luis MD) Intractable vomiting with nausea Pancytopenia Chronic anemia Anemia Surgical History Surgical History No pertinent past surgical history Social History Social History Household Members: Children and Other Housing: Apartment Do you presently have visiting nurse or other home services: No Alcohol intake: current Alcohol intake frequency: holidays/special occasions only Alcohol type: wine Patient Tobacco Use Status: Never used Tobacco Second Hand Smoke Exposure: No Substance Use Type: Marijuana service: No Current occupational status: employed Meds Allergies Allergy/AdvReac Type Severity Reaction Status Date / Time tree nut Allergy Anaphylaxis Verified 09/04/25 13:40 Active Medications: Current Medications Acetaminophen (Acetaminophen 325 Mg Tablet) 650 mg PO Q6H PRN PRN Reason: Pain, Mild 1-3,fever,headache Calcium Carbonate (Calcium Carbonate 750 Mg Tab.Chew) 750 mg PO Q4H PRN PRN Reason: Heartburn Hydromorphone HCl (Hydromorphone Hcl 1 Mg/Ml Syringe) 0.5 mg IVPUSH Q4H PRN; Protocol PRN Reason: abdominal pain Dextrose/Sodium Chloride (D51/2ns) 1,000 mls @ 125 mls/hr IVCONT .Q8H [facility] Last Admin: 09/04/25 18:51 Dose: 125 mls/hr Lactated Ringer's (Lr) 1,000 mls @ 125 mls/hr IVCONT .Q8H [facility] Magnesium Hydroxide (Milk Of Magnesia 30 Ml Oral.Susp) 30 ml PO DAILY PRN PRN Reason: Constipation Melatonin (Melatonin 3 Mg Tablet) 6 mg PO BEDTIME PRN PRN Reason: Insomnia Sodium Chloride (0.9 % Sodium Chloride Flush 3 Ml Syringe) 3 ml IVFLUSH QSHIFT [facility] Physical Exam 2 Vital Signs: Vital Signs: Last Vital Signs Temp 98.6 F 09/04/25 18:50 Pulse 76 09/04/25 18:50 Resp 18 09/04/25 18:50 BP 100/57 L 09/04/25 18:50 Pulse Ox 100 09/04/25 18:50 O2 Del Method Room Air 09/04/25 18:50 BMI result Body Mass Index 23.1 Const: General: comfortable and no acute distress O rientation/consciousness: patient oriented x3 Neck: Neck: Yes no lymphadenopathy Resp: Auscultation: clear to auscultation bilaterally Cardio: Rhythm: regular rhythm GI: Other: No Vernon's sign currently Palpation (GI): Soft to palpation, nontender and no guarding Neuro: General: patient oriented x3 Results Labs 09/06/25 05:06 09/06/25 05:06 Labs: Abnormal lab results 09/04/25 09/04/25 Range/Units 13:50 14:00 WBC 14.5 H (4.8-10.8) X10*3/uL Plt Count 155 L D (160-400) X10*3/uL Neutrophils % (Manual) 90 H (45-73) % Band Neutrophils % 1 L (3-5) % Lymphocytes % (Manual) 7 L (20-40) % Monocytes % (Manual) 1 L (2-11) % Abs Neuts (Manual) 13.2 H (2.0-8.3) X10*3/uL Lymphocytes # (Manual) 1.0 L (1.2-4.9) X10*3/uL Chloride 110 H (96-108) mmol/L Carbon Dioxide 20 L (22-29) mmol/L Random Glucose 145 H (60-115) mg/dL Albumin 5.2 H (3.5-5.0) g/dL Urine Color [place] A Ur Specific [place] >= 1.030 H (1.005-1.025) Urine Protein 100 (2+) H (Neg-Trace) mg/dL Urine Blood Moderate (2+) H (Negative) Ur Leukocyte Esterase Trace H (Negative) Urine WBC 6-10 H (0-5) /HPF U Marijuana (THC) Screen POSITIVE H (Not Detect) Short CBC 09/04/25 Range/Units 13:50 WBC 14.5 H (4.8-10.8) X10*3/uL Hgb 12.9 (12.0-16.0) g/dl Hct 38.3 (37.0-47.0) % Plt Count 155 L D (160-400) X10*3/uL BMP 09/04/25 13:50 Sodium 141 Potassium 3.6 Chloride 110 H Carbon Dioxide 20 L BUN 11 Creatinine 0.80 Calcium 9.8 Liver Function 09/04/25 Range/Units 13:50 Total Bilirubin 0.7 (0.0-1.0) mg/dL AST 23 (5-31) U/L ALT < 6 (0-31) U/L Alkaline Phosphatase 62 (39-117) U/L Albumin 5.2 H (3.5-5.0) g/dL Urine 09/04/25 Range/Units 14:00 Urine Color [place] A Urine Appearance Turbid Urine pH 5.5 (5.0-9.0) Ur Specific [place] >= 1.030 H (1.005-1.025) Urine Protein 100 (2+) H (Neg-Trace) mg/dL Urine Glucose (UA) Negative (Negative) mg/dL All other labs normal. CT abdomen and pelvis with contrast Comparison: CT/SR - CT ABDOMEN PELVIS WITHOUT IV CONTRAST - 11/03/22 11:58 EST Findings: The lung bases are clear. There is nonspecific gallbladder wall edema. Gallbladder is not distended, no gallstones are seen, and there is no appreciable pericholecystic fat stranding. There is no biliary duct dilation. The liver, pancreas, adrenal glands, and kidneys are unremarkable. There is borderline splenomegaly. The appendix is normal. The remainder of the gastrointestinal tract is unremarkable. There is trace free fluid in the cul-de-sac almost certainly physiologic. The uterus and adnexa are unremarkable. The bladder is partially decompressed. There are no enlarged lymph nodes. The aorta and IVC are normal. There is no fracture or suspicious lytic or sclerotic lesion. IMPRESSION: 1. Nonspecific gallbladder wall edema. No other findings of cholecystitis. Consider right upper quadrant ultrasound if clinically indicated. 2. Borderline splenomegaly. Assessment and Plan (1) Intractable vomiting with nausea: Status: Acute 20 year old female who came to the ER earlier today because of intractable nausea and vomiting. She had multiple episodes emesis as well as some loose watery stools. Her imaging studies also showed of an abnormal looking gallbladder with edema without significant inflammatory changes. She has no gallstones. I am uncertain as to the etiology and clinical significance of this radiologic finding of the gallbladder. She does not have any Vernon's sign currently. On my exam, she denied significant tenderness in the right upper quadrant although the hospitalist had stated that she did have some tenderness here. The patient says that her symptoms have resolved and was actually asking if she was being discharged. Explained to her that she will be admitted because of her intractable nausea and vomiting earlier. The hospitalist also stated that she has some significant abnormalities with her differentials in her leukocyte so she will probably be worked up for this as well At this time, I do not think that she will require surgical intervention but I will follow him closely while she is in the hospital. I would recommend for her to be hydrated with IV fluids as well. Procedures Date of Service Date of Service: 09/09/25
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
[2025-09-04 22:00] LABS: MANUAL DIFF FLAG NO
[2025-09-04 22:00] LABS: Lipase 9 U/L (8-78)
[2025-09-04 22:02] LABS: Reticulocytes Absolute 0.041 X10*6/uL (0.026-0.095)
[2025-09-04 22:10] LABS: Hematocrit 33.9 % (37.0-47.0); Hemoglobin 11.2 g/dl (12.0-16.0); Imm Gran Abs Auto 0.03 X10*3/uL (0.00-0.03); Imm Gran Pct Auto 0.4 % (0.0-0.4); Lymphocytes Absolute Auto 0.8 X10*3/uL (1.2-4.9); Mean Corpuscular HGB Conc 33.0 g/dl (31.0-35.0); Mean Corpuscular Hemoglobin 30.4 pg (27.0-33.0); Mean Corpuscular Volume 91.9 fL (80.0-98.0); NRBC Abs Auto 0.000 X10*3/uL (0.0-0.012); NRBC Pct Auto 0.0 /100WBC (0.0-0.2); Platelet Count 133 X10*3/uL (160-400); Red Blood Count 3.69 X10*6/uL (4.20-5.50); White Blood Count 7.5 X10*3/uL (4.8-10.8)
[2025-09-04 22:20] LABS: INTERNATIONAL NORM RATIO 1.0 (0.9-1.1); Prothrombin Time 12.5 SEC (11.2-13.5)
[2025-09-04] MEDS: Lactated Ringers 1,000 ML 125 ML IVCONT (22:20)
[2025-09-04 22:21] LABS: Cholesterol 131 mg/dL (<200); HDL Cholesterol 46 mg/dL (>40); Iron 85 mcg/dL (30-160); Percent Iron Saturation 28 % (15-50); Total Iron Binding Capacity 301 mcg/dL (228-428); Triglycerides 47 mg/dL (<150); Unsaturated Iron Binding 216 ug/dL
[2025-09-04 22:42] LABS: Ferritin 12 ng/mL (10-122)
[2025-09-04 22:56] LABS: Folate 7.7 ng/mL (> or = 4.0); Vitamin B12 335 pg/mL (200-900)
[2025-09-05] VITALS: BP 119/59; PULSE 66; RESP 14; TEMP 37.2; O2SAT 95
[2025-09-05 00:19] VITALS: BMI 22.1
[2025-09-05 03:15] VITALS: BP 98/46; PULSE 65; RESP 14; TEMP 36.4; O2SAT 98
[2025-09-05 06:22] LABS: MANUAL DIFF FLAG NO
[2025-09-05 06:41] LABS: Hematocrit 30.7 % (37.0-47.0); Hemoglobin 10.3 g/dl (12.0-16.0); Imm Gran Abs Auto 0.03 X10*3/uL (0.00-0.03); Imm Gran Pct Auto 0.5 % (0.0-0.4); Lymphocytes Absolute Auto 2.2 X10*3/uL (1.2-4.9); Mean Corpuscular HGB Conc 33.6 g/dl (31.0-35.0); Mean Corpuscular Hemoglobin 30.5 pg (27.0-33.0); Mean Corpuscular Volume 90.8 fL (80.0-98.0); NRBC Abs Auto 0.000 X10*3/uL (0.0-0.012); NRBC Pct Auto 0.0 /100WBC (0.0-0.2); Platelet Count 126 X10*3/uL (160-400); Red Blood Count 3.38 X10*6/uL (4.20-5.50); White Blood Count 6.5 X10*3/uL (4.8-10.8)
[2025-09-05 06:49] LABS: Alanine Aminotransferase 9 U/L (0-31); Albumin Level 4.1 g/dL (3.5-5.0); Alkaline Phosphatase 50 U/L (39-117); Anion Gap 10 (12-20); Aspartate Amino Transferase 22 U/L (5-31); Blood Urea Nitrogen 6 mg/dL (9-16); Calcium 8.5 mg/dL (8.4-10.2); Carbon Dioxide 22 mmol/L (22-29); Chloride 112 mmol/L (96-108); Creatinine Clr Calc Pharmacy 104.6; Estimated Glomerular Filt Rate > 60; Magnesium 1.9 mg/dL (1.6-2.6); Potassium 3.4 mmol/L (3.3-5.1); Sodium 141 mmol/L (135-145); Total Protein 6.1 g/dL (6.5-8.0)
[2025-09-05 07:27] VITALS: BP 96/52; PULSE 66; RESP 16; TEMP 36.7; O2SAT 99
[2025-09-05] MEDS: 0.9 % Sodium Chloride Flush 3 ML SYRINGE IVFLUSH ×2 (08:10→16:22)
[2025-09-05] MEDS: Dextrose 5 % and 0.45 % NaCl 1,000 ML 125 ML IVCONT ×2 (08:10→16:19)
--- NOTE | 2025-09-05 08:26 | PHA.MEDREC ---
Pharmacy Consult ? Medication Reconciliation Pharmacy has completed the medication reconciliation. Spoke with pt, she is on no medications at this time.
--- NOTE | 2025-09-05 09:24 | P.PNGS_ITS ---
Subjective Subjective Date of Service: 09/05/25 Interval history: States she feels well Denies any further vomiting overnight Describes some mild diffuse abdominal pain Passing flatus No fever Physical Exam 2 Vital Signs: Vital Signs: Last Vital Signs Temp 98.1 F 09/05/25 07:27 Pulse 66 09/05/25 07:27 Resp 16 09/05/25 07:27 BP 96/52 L 09/05/25 07:27 Pulse Ox 99 09/05/25 07:27 O2 Del Method Room Air 09/05/25 07:27 BMI result Body Mass Index 22.1 Const: General: comfortable and no acute distress Resp: Effort & Inspection: normal respiratory effort Cardio: Rate: regular rate GI: Other: Mild diffuse abdominal pain including the pelvic area, no Vernon's sign, no localization of pain on the right upper quadrant Palpation (GI): Soft to palpation, not firm and no guarding Objective Data Active Medications Acetaminophen (Acetaminophen 325 Mg Tablet) 650 mg PO Q6H PRN PRN Reason: Pain, Mild 1-3,fever,headache Calcium Carbonate (Calcium Carbonate 750 Mg Tab.Chew) 750 mg PO Q4H PRN PRN Reason: Heartburn Cyanocobalamin (Cyanocobalamin (Vitamin B-12) 1,000 Mcg Tablet) 1,000 mcg PO DAILY [facility] Last Admin: 09/05/25 08:14 Dose: 1,000 mcg Documented By: JOANNE Hydromorphone HCl (Hydromorphone Hcl 1 Mg/Ml Syringe) 0.5 mg IVPUSH Q4H PRN; Protocol PRN Reason: abdominal pain Dextrose/Sodium Chloride (D51/2ns) 1,000 mls @ 125 mls/hr IVCONT .Q8H [facility] Last Admin: 09/05/25 08:10 Dose: 125 mls/hr Documented By: JOANNE Magnesium Hydroxide (Milk Of Magnesia 30 Ml Oral.Susp) 30 ml PO DAILY PRN PRN Reason: Constipation Melatonin (Melatonin 3 Mg Tablet) 6 mg PO BEDTIME PRN PRN Reason: Insomnia Ondansetron HCl (Ondansetron Hcl 4 Mg/2 Ml Vial) 4 mg IVPUSH Q6H PRN PRN Reason: Nausea and Vomiting Sodium Chloride (0.9 % Sodium Chloride Flush 3 Ml Syringe) 3 ml IVFLUSH QSHIFT [facility] Last Admin: 09/05/25 08:10 Dose: 3 ml Documented By: JOANNE Labs 09/05/25 06:09 09/05/25 06:09 Labs: Laboratory Results - last 24 hr 09/04/25 09/04/25 09/04/25 13:50 14:00 21:38 MCV 90.5 91.9 MCH 30.5 30.4 MCHC 33.7 33.0 RDW 12.5 12.7 Plt Count 155 L D 133 L MPV 11.4 11.5 Immature Gran % (Auto) 0.4 Neut % (Auto) 85.6 H Lymph % (Auto) 10.7 L [place] % (Auto) 3.2 Eos % (Auto) 0.0 Baso % (Auto) 0.1 Lymph # (Auto) 0.8 L [place] # (Auto) 0.2 Eos # (Auto) 0.0 Baso # (Auto) 0.0 Abs Immat Gran (auto) 0.03 Absolute Neuts (auto) 6.4 Absolute Nucleated RBC 0.000 0.000 Nucleated RBC % (auto) 0.0 0.0 Neutrophils % (Manual) 90 H Band Neutrophils % 1 L Lymphocytes % (Manual) 7 L Monocytes % (Manual) 1 L Basophils % (Manual) 1 Abs Neuts (Manual) 13.2 H Lymphocytes # (Manual) 1.0 L Monocytes # (Manual) 0.1 Basophils # (Manual) 0.1 Toxic Vacuolation PRESENT Platelet Estimate NORMAL Large Platelets PRESENT Plt Morphology Comment NOTED RBC Morphology NOTED Tear Drop Cells 1+ (0-2) [place] Cells 1+ (0-2) Acanthocytes (Spur) 1+ (0-2) Absolute Retic 0.041 Percent Retic 1.1 Immature Retic Fraction 10.1 Retic Hgb Equivalent 34.9 PT INR Anion Gap 15 Estim Creat Clear Calc 103.2 Estimated GFR > 60 Random Glucose 145 H Haptoglobin Lactic Acid 1.0 Calcium 9.8 Magnesium 2.2 Iron 85 TIBC 301 % Saturation 28 Unsat Iron Binding 216 Ferritin Total Bilirubin 0.7 AST 23 ALT < 6 Alkaline Phosphatase 62 Lactate Dehydrogenase 162 Total Creatine Kinase Total Protein 7.9 Albumin 5.2 H Triglycerides 47 Cholesterol 131 LDL Cholesterol, Calc 76 HDL Cholesterol 46 Lipase 9 Vitamin B12 Folate Beta HCG, Quant < 2 Urine Color [place] A Urine Appearance Turbid Urine pH 5.5 Ur Specific [place] >= 1.030 H Urine Protein 100 (2+) H Urine Glucose (UA) Negative Urine Ketones 80 Urine Blood Moderate (2+) H Urine Nitrite Negative Ur Leukocyte Esterase Trace H Urine RBC 0-2 Urine WBC 6-10 H Ur Squamous Epith Cells >20 Other Crystals Present Urine Bacteria Trace Hyaline Casts 6-10 Granular Casts Present Urine Opiates Screen Not Detected Ur Buprenorphine Scrn Not Detected Ur Oxycodone Screen Not Detected Urine Methadone Screen Not Detected Urine Fentanyl Screen Not Detected Ur Barbiturates Screen Not Detected Ur Phencyclidine Scrn Not Detected Ur Amphetamines Screen Not Detected U Benzodiazepines Scrn Not Detected Urine Cocaine Screen Not Detected U Marijuana (THC) Screen POSITIVE H KADY, Polyspecific Positive KADY Work-up 09/04/25 09/05/25 21:39 06:09 MCV 90.8 MCH 30.5 MCHC 33.6 RDW 12.7 Plt Count 126 L MPV 11.7 Immature Gran % (Auto) 0.5 H Neut % (Auto) 56.1 Lymph % (Auto) 33.9 [place] % (Auto) 8.3 Eos % (Auto) 0.9 Baso % (Auto) 0.3 Lymph # (Auto) 2.2 [place] # (Auto) 0.5 Eos # (Auto) 0.1 Baso # (Auto) 0.0 Abs Immat Gran (auto) 0.03 Absolute Neuts (auto) 3.7 Absolute Nucleated RBC 0.000 Nucleated RBC % (auto) 0.0 Neutrophils % (Manual) Band Neutrophils % Lymphocytes % (Manual) Monocytes % (Manual) Basophils % (Manual) Abs Neuts (Manual) Lymphocytes # (Manual) Monocytes # (Manual) Basophils # (Manual) Toxic Vacuolation Platelet Estimate Large Platelets Plt Morphology Comment RBC Morphology Tear Drop Cells [place] Cells Acanthocytes (Spur) Absolute Retic Percent Retic Immature Retic Fraction Retic Hgb Equivalent PT 12.5 INR 1.0 Anion Gap 10 L Estim Creat Clear Calc 104.6 Estimated GFR > 60 Random Glucose 109 Haptoglobin 141 Lactic Acid Calcium 8.5 D Magnesium 1.9 Iron TIBC % Saturation Unsat Iron Binding Ferritin 12 Total Bilirubin 0.5 AST 22 ALT 9 Alkaline Phosphatase 50 Lactate Dehydrogenase Total Creatine Kinase 160 H Total Protein 6.1 L Albumin 4.1 Triglycerides Cholesterol LDL Cholesterol, Calc HDL Cholesterol Lipase Vitamin B12 335 Folate 7.7 Beta HCG, Quant Urine Color Urine Appearance Urine pH Ur Specific [place] Urine Protein Urine Glucose (UA) Urine Ketones Urine Blood Urine Nitrite Ur Leukocyte Esterase Urine RBC Urine WBC Ur Squamous Epith Cells Other Crystals Urine Bacteria Hyaline Casts Granular Casts Urine Opiates Screen Ur Buprenorphine Scrn Ur Oxycodone Screen Urine Methadone Screen Urine Fentanyl Screen Ur Barbiturates Screen Ur Phencyclidine Scrn Ur Amphetamines Screen U Benzodiazepines Scrn Urine Cocaine Screen U Marijuana (THC) Screen KADY, Polyspecific NEGATIVE Positive KADY Work-up Not Reportable Procedures Date of Service Date of Service: 09/05/25 Progress Note: A&P Assessment and plan (1) Intractable vomiting with nausea: Status: Acute Assessment and Plan: Denies significant pain No further vomiting or nausea Appears comfortable Abdomen is soft, benign, no Vernon's sign, mild diffuse abdominal tenderness Overall clinical findings not suggestive of acute cholecystitis despite abnormal looking gallbladder on CAT scan/US No leukocytosis Okay to advance diet slowly We will follow Time Spent With Patient Time: Total time managing care of this patient today ____ minutes. Quality Stroke Does the patient have a stroke diagnosis?: No VTE Prior VTE?: No VTE Risk Level:: Medical - moderate - high VTE Device Contraindication: N/A - Device Ordered VTE Drug Contraindication: Treatment Not Indicated
[2025-09-05 11:07] VITALS: BP 99/49; PULSE 60; RESP 16; TEMP 36.3; O2SAT 98
--- NOTE | 2025-09-05 13:41 | PM.EVENT ---
Event Note Date of Service: 09/05/25 Event Note: Seen on afternoon rounds Denies abdominal pain Abdomen is soft, no guarding, no rebound, no obvious tenderness No fever Tolerating clear liquids Clinically not acute cholecystitis Okay to try to advance diet slowly We will continue to follow Time Spent With Patient Time: Total time managing care of this patient today ____ minutes.
[2025-09-05 15:13] VITALS: BP 102/68; PULSE 76; RESP 18; TEMP 36.4; O2SAT 100
--- NOTE | 2025-09-05 15:46 | HO.PM.IMPN ---
Subjective Subjective Date of Service: 09/05/25 Interval History: N/V, no RUQ pain Review of Systems Review of Systems: Yes all other systems are reviewed and are negative Physical Exam Vital Signs: Vital Signs: Last Vital Signs Temp 97.6 F 09/05/25 15:13 Pulse 76 09/05/25 15:13 Resp 18 09/05/25 15:13 BP 102/68 09/05/25 15:13 Pulse Ox 100 09/05/25 15:13 O2 Del Method Room Air 09/05/25 15:13 BMI result Body Mass Index 22.1 Gen: in no acute distress HEENT: sclera anicteric, moist mucus membranes Neck: supple Lungs: clear to auscultation bilaterally Heart: regular rate and rhythm, no murmurs Abd: soft, non-tender, non-distended Ext: no edema Skin: warm/well-perfused Neuro: alert and oriented x3, no focal findings Psych: appropriate affect Objective Data Active Medications Acetaminophen (Acetaminophen 325 Mg Tablet) 650 mg PO Q6H PRN PRN Reason: Pain, Mild 1-3,fever,headache Calcium Carbonate (Calcium Carbonate 750 Mg Tab.Chew) 750 mg PO Q4H PRN PRN Reason: Heartburn Cyanocobalamin (Cyanocobalamin (Vitamin B-12) 1,000 Mcg Tablet) 1,000 mcg PO DAILY [facility] Last Admin: 09/05/25 08:14 Dose: 1,000 mcg Documented By: JOANNE Hydromorphone HCl (Hydromorphone Hcl 1 Mg/Ml Syringe) 0.5 mg IVPUSH Q4H PRN; Protocol PRN Reason: abdominal pain Dextrose/Sodium Chloride (D51/2ns) 1,000 mls @ 125 mls/hr IVCONT .Q8H [facility] Last Admin: 09/05/25 08:10 Dose: 125 mls/hr Documented By: JOANNE Magnesium Hydroxide (Milk Of Magnesia 30 Ml Oral.Susp) 30 ml PO DAILY PRN PRN Reason: Constipation Melatonin (Melatonin 3 Mg Tablet) 6 mg PO BEDTIME PRN PRN Reason: Insomnia Ondansetron HCl (Ondansetron Hcl 4 Mg/2 Ml Vial) 4 mg IVPUSH Q6H PRN PRN Reason: Nausea and Vomiting Sodium Chloride (0.9 % Sodium Chloride Flush 3 Ml Syringe) 3 ml IVFLUSH QSHIFT [facility] Last Admin: 09/05/25 08:10 Dose: 3 ml Documented By: JOANNE Labs 09/05/25 06:09 09/05/25 06:09 Labs: Laboratory Results - last 24 hr 09/04/25 09/04/25 09/04/25 13:50 21:38 21:39 MCV 91.9 MCH 30.4 MCHC 33.0 RDW 12.7 Plt Count 133 L MPV 11.5 Immature Gran % (Auto) 0.4 Neut % (Auto) 85.6 H Lymph % (Auto) 10.7 L [place] % (Auto) 3.2 Eos % (Auto) 0.0 Baso % (Auto) 0.1 Lymph # (Auto) 0.8 L [place] # (Auto) 0.2 Eos # (Auto) 0.0 Baso # (Auto) 0.0 Abs Immat Gran (auto) 0.03 Absolute Neuts (auto) 6.4 Absolute Nucleated RBC 0.000 Nucleated RBC % (auto) 0.0 Absolute Retic 0.041 Percent Retic 1.1 Immature Retic Fraction 10.1 Retic Hgb Equivalent 34.9 PT 12.5 INR 1.0 Anion Gap Estim Creat Clear Calc Estimated GFR Random Glucose Haptoglobin 141 Lactic Acid 1.0 Calcium Magnesium Iron 85 TIBC 301 % Saturation 28 Unsat Iron Binding 216 Ferritin 12 Total Bilirubin AST ALT Alkaline Phosphatase Lactate Dehydrogenase 162 Total Creatine Kinase 160 H C-Reactive Protein Total Protein Albumin Triglycerides 47 Cholesterol 131 LDL Cholesterol, Calc 76 HDL Cholesterol 46 Lipase 9 Vitamin B12 335 Folate 7.7 KADY, Polyspecific NEGATIVE Positive KADY Work-up Not Reportable 09/05/25 06:09 MCV 90.8 MCH 30.5 MCHC 33.6 RDW 12.7 Plt Count 126 L MPV 11.7 Immature Gran % (Auto) 0.5 H Neut % (Auto) 56.1 Lymph % (Auto) 33.9 [place] % (Auto) 8.3 Eos % (Auto) 0.9 Baso % (Auto) 0.3 Lymph # (Auto) 2.2 [place] # (Auto) 0.5 Eos # (Auto) 0.1 Baso # (Auto) 0.0 Abs Immat Gran (auto) 0.03 Absolute Neuts (auto) 3.7 Absolute Nucleated RBC 0.000 Nucleated RBC % (auto) 0.0 Absolute Retic Percent Retic Immature Retic Fraction Retic Hgb Equivalent PT INR Anion Gap 10 L Estim Creat Clear Calc 104.6 Estimated GFR > 60 Random Glucose 109 Haptoglobin Lactic Acid Calcium 8.5 D Magnesium 1.9 Iron TIBC % Saturation Unsat Iron Binding Ferritin Total Bilirubin 0.5 AST 22 ALT 9 Alkaline Phosphatase 50 Lactate Dehydrogenase Total Creatine Kinase C-Reactive Protein 0.27 Total Protein 6.1 L Albumin 4.1 Triglycerides Cholesterol LDL Cholesterol, Calc HDL Cholesterol Lipase Vitamin B12 Folate KADY, Polyspecific Positive KADY Work-up Microbiology Microbiology Results: Microbiology 09/04/25 Unknown Urine Culture - Final Urine clean catch - Clean Catch Midstream Assessment and Plan (1) Anemia: Status: Acute Plan d2, 20yo F presenting with nausea, vomiting, and diarrhea; question of cholecystitis [ruled out] nausea/vomiting - suspect gastroenteritis vs cannabinoid hyperemesis syndrome; continue IV fluids, d/c Zosyn, prn ondansetron, avoid THC, clear liquids/advance as tolerated normocytic anemia thrombocytopenia - Heme/Onc consulted, bcr/abl sent, HIV pending VTE ppx: SCDs dispo: home In my clinical judgment, the patient requires continued inpatient hospitalization for the following reasons: IV fluids Total time managing care of this patient today: 35 minutes. Quality Stroke Does the patient have a stroke diagnosis?: No VTE Prior VTE?: No VTE Risk Level:: Medical - moderate - high VTE Device Contraindication: N/A - Device Ordered VTE Drug Contraindication: Treatment Not Indicated
--- NOTE | 2025-09-05 16:10 | MHC.CM.PN ---
CM ATTEMPTED TO MEET WITH PT WHO WAS SLEEPING AND DID NOT WAKE DESPITE ATTEMPTS. PER CHART, PT LIVES WITH HER CHILDREN AND IS INDEPENDENT WITH CARE SHE HAS A PCP AT [facility] NO HCP ON FILE CM WILL REVISIT WHEN PT IS AWAKE
[2025-09-05 19:08] VITALS: BP 115/63; PULSE 70; RESP 14; TEMP 36.6; O2SAT 100
[2025-09-06] VITALS: BP 104/55; PULSE 62; RESP 16; TEMP 36.8; O2SAT 98
[2025-09-06] MEDS: Dextrose 5 % and 0.45 % NaCl 1,000 ML 125 ML IVCONT (01:14)
--- NOTE | 2025-09-06 02:11 | PC.NURSE ---
pt reports being able to eat saltine crackers, juice and a salad, completely, with no nausea or vomiting at this time, Will continue to monitor.
[2025-09-06 03:07] VITALS: BP 126/74; PULSE 62; RESP 15; TEMP 36.6; O2SAT 100
[2025-09-06 04:56] LABS: HIV Num 1 0.07 S/CO (0.00-0.99)
[2025-09-06 05:38] LABS: Hematocrit 32.0 % (37.0-47.0); Hemoglobin 10.9 g/dl (12.0-16.0); Mean Corpuscular HGB Conc 34.1 g/dl (31.0-35.0); Mean Corpuscular Hemoglobin 31.0 pg (27.0-33.0); Mean Corpuscular Volume 90.9 fL (80.0-98.0); NRBC Abs Auto 0.000 X10*3/uL (0.0-0.012); NRBC Pct Auto 0.0 /100WBC (0.0-0.2); Platelet Count 119 X10*3/uL (160-400); Red Blood Count 3.52 X10*6/uL (4.20-5.50); White Blood Count 5.3 X10*3/uL (4.8-10.8)
[2025-09-06 05:51] LABS: Anion Gap 11 (12-20); Blood Urea Nitrogen 4 mg/dL (9-16); Calcium 8.6 mg/dL (8.4-10.2); Carbon Dioxide 23 mmol/L (22-29); Chloride 112 mmol/L (96-108); Creatinine Clr Calc Pharmacy 121.5; Estimated Glomerular Filt Rate > 60; Potassium 3.2 mmol/L (3.3-5.1); Sodium 143 mmol/L (135-145)
[2025-09-06 06:12] LABS: HBS Num1 0.00 mIU/mL (0-7.99); HBc Num1 0.09 S/CO (0.00-0.79); HBsAGNum1 0.38 S/CO (0.00-0.99); Hepatitis B Surface Antigen Negative (Negative); ~HepC Num1 0.11 S/CO (0.00-0.79); ~Hepatitis B Surface Antibody NONREACTIVE (Nonreactive); ~Hepatitis C Antibody Nonreactive (Nonreactive)
[2025-09-06 07:10] VITALS: BP 104/60; PULSE 74; RESP 18; TEMP 36.4; O2SAT 100
[2025-09-06] MEDS: Potassium Chloride ER 20 MEQ TAB.ER.PRT 40 MEQ PO (08:54)
--- NOTE | 2025-09-06 11:16 | PM.DS ---
DS: Providers Provider Date of Service: 09/06/25 Date of admission: 09/04/25 20:39 Date of discharge: 09/06/25 Primary care physician: [facility] Consults: 09/04/25 20:56 Consult to Hematology / Oncology Routine Consulting Provider: [facility] [place] Oncology/Hematology Reason for consultation: Abdominal pain, abnormal differential, splenomegaly Has provider been notified: No DS: Diagnosis Discharge Diagnosis (1) Anemia: Status: Acute (2) Thrombocytopenia: Status: Acute (3) Intractable vomiting with nausea: Status: Acute (4) Splenomegaly: Status: Acute DS: Summary Hospital Course Hospital Course: from admission H+P by hospitalist Luigi Singleton MD, 09/04/25: Elo Bass is a 20 years old woman with no significant past medical history who presents to the emergency department complaining of multiple episodes of bilious vomiting, nausea and watery nonbloody diarrhea that started today after eating food from [employer]: Beef. She also reported some right upper quadrant and pelvic pain. She denied fever or chills. She denies sick contacts or recent travel history. She does not take medications at home. She has a history of bipolar, depression anxiety disorder. She vapes nicotine. Denied alcohol abuse and smoke a joint of marijuana daily. Denied illicit drug use. She denied history of abdominal surgeries. LMP was a few days ago. In the ED, she was found to have stable vital signs. Blood workup showed leukocytosis of 14.5. [Hematocrit is 33.9] and platelets 155. Differential showed 1% bandemia, 90% neutrophils, lymphocytes 7%, monocytes 1%, basophils 1%, ND drops 1+ versus cells 1+ and spur cells 1+. There are no significant electrolyte imbalances except for hyperchloremia a low CO2 of 20. Creatinine and BUN are normal. LFTs are normal. Urinalysis: Urine orange, appearance turbid, pH 5.5, elevated specific gravity, proteinuria 2+, ketones 80, glucose negative, blood 2+, nitrites negative, leukocyte steroids trace, RBC 0-2, WBCs 0-10, squamous cells > 20, crystals present. Abdominal pelvis CT scan without IV contrast showed nonspecific gallbladder wall edema but no other finding of cholecystitis and borderline splenomegaly. ED tx: NS 2 L bolus, Benadryl 12.5 mg IV, Valium 2.5 mg IV, droperidol 0.625 + 1.25 mg IV, Reglan 10 mg IV' 20yo F presenting with nausea, vomiting, and diarrhea; question of cholecystitis [ruled out]. Hospital course by problem: nausea/vomiting - Suspect gastroenteritis vs cannabinoid hyperemesis syndrome; treated with IV fluids and prn ondansetron; diet advanced with good tolerance. Abdominal US negative for cholecystitis. Counseled to avoid THC. normocytic anemia thrombocytopenia mild splenomegaly - Heme/Onc consulted, bcr/abl sent, LDH normal, iron studies normal, HIV negative. B12 low-normal and supplementation recommended. Will follow up with Dr Luis from [facility] Hematology-Oncology in 2 weeks for results of bcr/abl and may need bone marrow examination. Time Attestation Discharge Coordination Time (in mins): 35 Quality: Safe Use of Opioids Does Pt have an Active Cancer Diagnosis on the Problem List?: No Quality: Stroke Does the patient have a stroke diagnosis?: No Physical Exam Vital Signs: Vital Signs: Last Vital Signs Temp 97.5 F 09/06/25 07:10 Pulse 74 09/06/25 07:10 Resp 18 09/06/25 07:10 BP 104/60 09/06/25 07:10 Pulse Ox 100 09/06/25 07:10 O2 Del Method Room Air 09/06/25 07:10 BMI result Body Mass Index 22.1 Gen: in no acute distress HEENT: sclera anicteric, moist mucus membranes Neck: supple Lungs: clear to auscultation bilaterally Heart: regular rate and rhythm, no murmurs Abd: soft, non-tender, non-distended Ext: no edema Skin: warm/well-perfused Neuro: alert and oriented x3, no focal findings Psych: appropriate affect DS: Data Data Completed and Pending Completed studies during hospitalization [Text1]: Laboratory Results WBC 5.3 X10*3/uL (4.8-10.8) 09/06/25 05:06 RBC 3.52 X10*6/uL (4.20-5.50) L 09/06/25 05:06 Hgb 10.9 g/dl (12.0-16.0) L 09/06/25 05:06 Hct 32.0 % (37.0-47.0) L 09/06/25 05:06 MCV 90.9 fL (80.0-98.0) 09/06/25 05:06 MCH 31.0 pg (27.0-33.0) 09/06/25 05:06 MCHC 34.1 g/dl (31.0-35.0) 09/06/25 05:06 RDW 12.5 % (11.0-16.0) 09/06/25 05:06 Plt Count 119 X10*3/uL (160-400) L 09/06/25 05:06 MPV 11.0 fL (9.4-12.3) 09/06/25 05:06 Immature Gran % (Auto) 0.5 % (0.0-0.4) H 09/05/25 06:09 Neut % (Auto) 56.1 % (45-73) 09/05/25 06:09 Lymph % (Auto) 33.9 % (20-40) 09/05/25 06:09 [place] % (Auto) 8.3 % (2-11) 09/05/25 06:09 Eos % (Auto) 0.9 % (0-4) 09/05/25 06:09 Baso % (Auto) 0.3 % (0-2) 09/05/25 06:09 Lymph # (Auto) 2.2 X10*3/uL (1.2-4.9) 09/05/25 06:09 [place] # (Auto) 0.5 X10*3/uL (0.1-1.2) 09/05/25 06:09 Eos # (Auto) 0.1 X10*3/uL (0.0-0.4) 09/05/25 06:09 Baso # (Auto) 0.0 X10*3/uL (0.0-0.2) 09/05/25 06:09 Abs Immat Gran (auto) 0.03 X10*3/uL (0.00-0.03) 09/05/25 06:09 Absolute Neuts (auto) 3.7 x10*3/uL (2.0-8.3) 09/05/25 06:09 Absolute Nucleated RBC 0.000 X10*3/uL (0.0-0.012) 09/06/25 05:06 Nucleated RBC % (auto) 0.0 /100WBC (0.0-0.2) 09/06/25 05:06 Neutrophils % (Manual) 90 % (45-73) H 09/04/25 13:50 Band Neutrophils % 1 % (3-5) L 09/04/25 13:50 Lymphocytes % (Manual) 7 % (20-40) L 09/04/25 13:50 Monocytes % (Manual) 1 % (2-11) L 09/04/25 13:50 Basophils % (Manual) 1 % (0-2) 09/04/25 13:50 Abs Neuts (Manual) 13.2 X10*3/uL (2.0-8.3) H 09/04/25 13:50 Lymphocytes # (Manual) 1.0 X10*3/uL (1.2-4.9) L 09/04/25 13:50 Monocytes # (Manual) 0.1 X10*3/uL (0.1-1.2) 09/04/25 13:50 Basophils # (Manual) 0.1 X10*3/uL (0.0-0.2) 09/04/25 13:50 Toxic Vacuolation PRESENT 09/04/25 13:50 Platelet Estimate NORMAL (NORMAL) 09/04/25 13:50 Large Platelets PRESENT 09/04/25 13:50 Plt Morphology Comment NOTED 09/04/25 13:50 RBC Morphology NOTED 09/04/25 13:50 Tear Drop Cells 1+ (0-2) /OIF 09/04/25 13:50 [place] Cells 1+ (0-2) /OIF 09/04/25 13:50 Acanthocytes (Spur) 1+ (0-2) /OIF 09/04/25 13:50 Absolute Retic 0.041 X10*6/uL (0.026-0.095) 09/04/25 21:38 Percent Retic 1.1 % (0.5-1.8) 09/04/25 21:38 Immature Retic Fraction 10.1 % (3.0-15.9) 09/04/25 21:38 Retic Hgb Equivalent 34.9 pg (30.0-35.0) 09/04/25 21:38 PT 12.5 SEC (11.2-13.5) 09/04/25 21:39 INR 1.0 (0.9-1.1) 09/04/25 21:39 Sodium 143 mmol/L (135-145) 09/06/25 05:06 Potassium 3.2 mmol/L (3.3-5.1) L 09/06/25 05:06 Chloride 112 mmol/L (96-108) H 09/06/25 05:06 Carbon Dioxide 23 mmol/L (22-29) 09/06/25 05:06 Anion Gap 11 (12-20) L 09/06/25 05:06 BUN 4 mg/dL (9-16) L 09/06/25 05:06 Creatinine 0.68 mg/dL (0.5-1.4) 09/06/25 05:06 Estim Creat Clear Calc 121.5 09/06/25 05:06 Estimated GFR > 60 09/06/25 05:06 Random Glucose 102 mg/dL (60-115) 09/06/25 05:06 Haptoglobin 141 mg/dL (35-250) 09/04/25 21:39 Lactic Acid 1.0 mmol/L (0.5-2.0) 09/04/25 21:38 Calcium 8.6 mg/dL (8.4-10.2) 09/06/25 05:06 Magnesium 1.9 mg/dL (1.6-2.6) 09/05/25 06:09 Iron 85 mcg/dL (30-160) 09/04/25 21:38 TIBC 301 mcg/dL (228-428) 09/04/25 21:38 % Saturation 28 % (15-50) 09/04/25 21:38 Unsat Iron Binding 216 ug/dL 09/04/25 21:38 Ferritin 12 ng/mL (10-122) 09/04/25 21:39 Total Bilirubin 0.5 mg/dL (0.0-1.0) 09/05/25 06:09 AST 22 U/L (5-31) 09/05/25 06:09 ALT 9 U/L (0-31) 09/05/25 06:09 Alkaline Phosphatase 50 U/L (39-117) 09/05/25 06:09 Lactate Dehydrogenase 162 U/L (122-220) 09/04/25 21:38 Total Creatine Kinase 160 U/L (26-140) H 09/04/25 21:39 C-Reactive Protein 0.27 mg/dL (< or = 0.50) 09/05/25 06:09 Total Protein 6.1 g/dL (6.5-8.0) L 09/05/25 06:09 Albumin 4.1 g/dL (3.5-5.0) 09/05/25 06:09 Triglycerides 47 mg/dL (<150) 09/04/25 21:38 Cholesterol 131 mg/dL (<200) 09/04/25 21:38 LDL Cholesterol, Calc 76 mg/dL (<100) 09/04/25 21:38 HDL Cholesterol 46 mg/dL (>40) 09/04/25 21:38 Lipase 9 U/L (8-78) 09/04/25 13:50 Vitamin B12 335 pg/mL (200-900) 09/04/25 21:39 Folate 7.7 ng/mL (> or = 4.0) 09/04/25 21:39 Beta HCG, Quant < 2 mIU/mL 09/04/25 13:50 Urine Color [place] A 09/04/25 14:00 Urine Appearance Turbid 09/04/25 14:00 Urine pH 5.5 (5.0-9.0) 09/04/25 14:00 Ur Specific [place] >= 1.030 (1.005-1.025) H 09/04/25 14:00 Urine Protein 100 (2+) mg/dL (Neg-Trace) H 09/04/25 14:00 Urine Glucose (UA) Negative mg/dL (Negative) 09/04/25 14:00 Urine Ketones 80 mg/dL (Negative) 09/04/25 14:00 Urine Blood Moderate (2+) (Negative) H 09/04/25 14:00 Urine Nitrite Negative (Negative) 09/04/25 14:00 Ur Leukocyte Esterase Trace (Negative) H 09/04/25 14:00 Urine RBC 0-2 /HPF (0-2) 09/04/25 14:00 Urine WBC 6-10 /HPF (0-5) H 09/04/25 14:00 Ur Squamous Epith Cells >20 /HPF (0-2) 09/04/25 14:00 Other Crystals Present 09/04/25 14:00 Urine Bacteria Trace (None Seen) 09/04/25 14:00 Hyaline Casts 6-10 /LPF (0-2) 09/04/25 14:00 Granular Casts Present 09/04/25 14:00 Urine Opiates Screen Not Detected (Not Detect) 09/04/25 14:00 Ur Buprenorphine Scrn Not Detected ng/mL (Not Detect) 09/04/25 14:00 Ur Oxycodone Screen Not Detected ng/mL (Not Detect) 09/04/25 14:00 Urine Methadone Screen Not Detected ng/mL (Not Detect) 09/04/25 14:00 Urine Fentanyl Screen Not Detected (Not Detect) 09/04/25 14:00 Ur Barbiturates Screen Not Detected (Not Detect) 09/04/25 14:00 Ur Phencyclidine Scrn Not Detected (Not Detect) 09/04/25 14:00 Ur Amphetamines Screen Not Detected (Not Detect) 09/04/25 14:00 U Benzodiazepines Scrn Not Detected (Not Detect) 09/04/25 14:00 Urine Cocaine Screen Not Detected (Not Detect) 09/04/25 14:00 U Marijuana (THC) Screen POSITIVE (Not Detect) H 09/04/25 14:00 Hep Bs Antigen Negative (Negative) 09/06/25 05:06 Hep Bs Antibody NONREACTIVE (Nonreactive) 09/06/25 05:06 Hep B Core Total Ab Nonreactive (Nonreactive) 09/06/25 05:06 Hepatitis C Ab (EIA) Nonreactive (Nonreactive) 09/06/25 05:06 HIV 1&2 Ab/P24 Ag 4thGn Nonreactive (Nonreactive) 09/04/25 21:39 KADY, Polyspecific NEGATIVE 09/04/25 21:39 Positive KADY Work-up Not Reportable 09/04/25 21:39 Discharge Plan Discharge Anticipated Discharge Date/Time: 09/06/25 11:01 Patient Disposition: Home, Self-Care Discharge Diagnosis: nausea/vomiting possibly due to cannabis or gastroenteritis; resolved mild anemia and thrombocytopenia; splenomegaly Referrals: [facility] [Primary Care Provider, Medical] - 1 Week Munira Luis MD ([facility]) [Physician, Hematology & Oncology] - 2 Weeks Discharge Medications: New cyanocobalamin (vitamin B-12) [Vitamin B-12] 1,000 mcg Tablet 1,000 mcg PO DAILY Qty: 30 0RF ondansetron 4 mg tablet,disintegrating 4 mg PO Q8H PRN (Reason: nausea and vomiting) Qty: 10 0RF Discharge Orders: Discharge Order (Routine); Ordered 09/06/25 Ordered By: Barbara Fink Diet: Advance to usual diet Activity on Discharge: As tolerated Stand Alone Forms: Patient Portal Discharge page Print Language: Icelandic Care Plan Goals: recovery from nausea/vomiting Health Concerns: nausea/vomiting possibly due to cannabis or gastroenteritis; resolved mild anemia and thrombocytopenia; splenomegaly Plan of Treatment: avoid cannabis ondansetron 4 mg every 8 hours as needed for nausea/vomiting follow up with Dr Luis from [facility] [place] Hematology-Oncology in 2 weeks Please follow up with your primary care doctor within 1 week. Return to the hospital if you experience recurrent or worsening symptoms. Assessment: See Discharge Summary.
--- NOTE | 2025-09-06 11:18 | MHC.CM.PN ---
pt dcd home self care
[2025-09-06 11:28] VITALS: BP 110/68; PULSE 70; RESP 18; TEMP 36.5; O2SAT 97
[2025-09-06 14:06] LABS: E. coli EAEC Not Detected (Not Detect.); E. coli EPEC Not Detected (Not Detect.); E. coli ETEC Not Detected (Not Detect.); E. coli STEC Not Detected (Not Detect.); Shigella sp./EIEC Not Detected (Not Detect.)
== END 2025-09-06 12:28 | disposition home or self-care (01) | DRG 249 ==
LOC: HO.ED 13:58 → HO.EDOVER 20:43 → HO.S3 23:19
PROVIDERS: Internal Medicine Medical Oncology; Admitting Provider Internal Medicine; Emergency Provider Emergency Medicine; PCP Registered Nurse; Visit Provider Family Medicine
DX: K52.9 Noninfective gastroenteritis and colitis, unspecified (principal); D69.6 Thrombocytopenia, unspecified; F31.9 Bipolar disorder, unspecified; D64.9 Anemia, unspecified; R11.16 Cannabis hyperemesis syndrome
CPT/HCPCS: 36415; 74177; 76705; 80048; 80053; 80061; 80307; 81001; 81206; 81207; 82550; 82607; 82728; 82746; 83010; 83540; 83605; 83615; 83690; 83735; 84702; 85007; 85025; 85027; 85045; 85610; 86140; 86704; 86706; 86803; 86880; 87040; 87086; 87340; 87389; 87507; 93005; 99285; J1200; J1790; J2543; J2765; J3360; J7120; Q9967

== ENCOUNTER → 2025-09-04 14:06 | Outpatient (BNV) | payer MEDICAID, SELFPAY | PROVIDERS: Admitting Provider Internal Medicine; Emergency Provider Emergency Medicine; Visit Provider Internal Medicine | DX: I49.9 Cardiac arrhythmia, unspecified (principal); R00.1 Bradycardia, unspecified | CPT/HCPCS: 93010 ==

== ENCOUNTER → 2025-09-04 17:52 | Outpatient (BNV) | payer MEDICAID, SELFPAY | PROVIDERS: Emergency Provider Emergency Medicine; Visit Provider Radiology Diagnostic Radiology | DX: R10.9 Unspecified abdominal pain (principal) | CPT/HCPCS: 74177 ==

== ENCOUNTER 2025-09-04 20:39 | Outpatient (BNV) | payer MEDICAID, SELFPAY | END 2025-09-05 09:01 | PROVIDERS: Admitting Provider Internal Medicine; Emergency Provider Emergency Medicine; Visit Provider Radiology Diagnostic Radiology | DX: R10.11 Right upper quadrant pain (principal) | CPT/HCPCS: 76705 ==

== ENCOUNTER → 2025-09-04 20:39 | Outpatient (BNV) | payer MEDICAID, SELFPAY | PROVIDERS: Admitting Provider Internal Medicine; Emergency Provider Emergency Medicine; Visit Provider Internal Medicine | DX: R11.2 Nausea with vomiting, unspecified (principal); R10.11 Right upper quadrant pain; D64.9 Anemia, unspecified | CPT/HCPCS: 99223; 99232 ==

== ENCOUNTER → 2025-09-04 20:39 | Outpatient (BNV) | payer MEDICAID, SELFPAY | PROVIDERS: Admitting Provider Internal Medicine; Emergency Provider Emergency Medicine; PCP Registered Nurse; Visit Provider Internal Medicine Medical Oncology | DX: R79.89 Other specified abnormal findings of blood chemistry (principal); R11.2 Nausea with vomiting, unspecified; R10.11 Right upper quadrant pain | CPT/HCPCS: 99222 ==

== ENCOUNTER → 2025-09-04 20:39 | Outpatient (BNV) | payer MEDICAID, SELFPAY | PROVIDERS: Admitting Provider Internal Medicine; Emergency Provider Emergency Medicine; Visit Provider Surgery | DX: R11.2 Nausea with vomiting, unspecified (principal) | CPT/HCPCS: 99222; 99232; 99499 ==